=== PATIENT | female | born 1965 | race Caucasian/White ===

== ENCOUNTER 2022-08-16 02:14 | Outpatient (CLI) | payer OTHER, SELFPAY ==
[2022-08-16 08:37] LABS: ALT 44 U/L (14-59); AST 24 U/L (15-37); Alkaline Phosphatase 75 U/L (46-116); Bilirubin, Direct 0.1 mg/dL (0.0-0.2); Bilirubin, Total 0.3 mg/dL (0.2-1.0); Total Protein 7.8 g/dL (6.4-8.2)
[2022-08-16 08:41] LABS: ALT 42 U/L (14-59); AST 24 U/L (15-37); Albumin 3.9 g/dL (3.4-5.0); Alkaline Phosphatase 77 U/L (46-116); BUN 27 mg/dL (7-18); Bilirubin, Total 0.3 mg/dL (0.2-1.0); CREATININE 0.7 mg/dL (0.55-1.02); Calcium 9.1 mg/dL (8.5-10.1); Calculated LDL 137 mg/dL (<100); Chloride 103 mmol/L (98-107); Cholesterol 225 mg/dL (<200); Estimated GFR 100.81 (mL/min/1.73m2); Glucose 108 mg/dL (74-106); HDL Cholesterol 55 mg/dL (40-60); Potassium 4.2 mmol/L (3.5-5.1); Sodium 138 mmol/L (136-145); Total Protein 7.8 g/dL (6.4-8.2); Triglyceride 167 mg/dL (<150)
[2022-08-16 09:10] LABS: Hemoglobin A1C 5.5 % (<5.7)
== END 2022-08-16 02:15 | disposition home or self-care (01) ==
PROVIDERS: PCP Nurse Practitioner Family; Visit Provider Nurse Practitioner Family
DX: Z13.220 Encounter for screening for lipoid disorders (principal); Z13.1 Encounter for screening for diabetes mellitus; Z51.81 Encounter for therapeutic drug level monitoring
CPT/HCPCS: 36415; 80053; 80061; 80076; 82248; 83036

== ENCOUNTER 2022-09-18 04:56 | Outpatient (CLI) | payer OTHER, SELFPAY ==
[2022-09-18 08:52] LABS: Vitamin B12 968 pg/mL (193-986)
== END 2022-09-18 04:57 | disposition home or self-care (01) ==
LOC: LBO 04:57
PROVIDERS: Nurse Practitioner Adult Health; PCP Nurse Practitioner Family; Referring Provider Nurse Practitioner Family; Visit Provider Nurse Practitioner Family
DX: R41.3 Other amnesia; G43.009 Migraine without aura, not intractable, without status migrainosus; F41.8 Other specified anxiety disorders; G31.84 Mild cognitive impairment of uncertain or unknown etiology
CPT/HCPCS: 36415; 82607; 84443

== ENCOUNTER 2022-10-03 09:44 | Outpatient (REF) | payer OTHER, SELFPAY ==
--- NOTE | 2022-10-03 08:45 | PAPFT_PTH ---
PATIENT: Violeta Suarez LOC: ONI U#:[id number] AGE/SX: 57/F ROOM: RE10/03/[address]: Ana Florentino APRN : 1965 BED: DIS: 10/03/2022 SPEC #: [id number] RECD: 10/03/22 17:52 STATUS: DORA REQ #: [id number] TAHIRA: 10/03/22 08:[address]: Ana Florentino DEPT: [facility] Cytology RECD BY: Roma Duke Tissues: 1 - CX/ENDOCX FOR PAP SMEARS Procedures: PAP THIN PREP/UVM Screening HPV DNA PROBE Comments: [id number]
[2022-10-03 15:53] LABS: TSH (W/Ref FT4) 3.61 uIU/mL (0.36-3.74)
== END 2022-10-03 09:45 | disposition home or self-care (01) ==
LOC: LBN 09:44
PROVIDERS: PCP Nurse Practitioner Family; Visit Provider Nurse Practitioner Family
DX: R79.89 Other specified abnormal findings of blood chemistry (principal); Z12.4 Encounter for screening for malignant neoplasm of cervix; E78.5 Hyperlipidemia, unspecified; R94.6 Abnormal results of thyroid function studies; Z11.51 Encounter for screening for human papillomavirus (HPV)
CPT/HCPCS: 88142; 84443; 87624

== ENCOUNTER 2023-01-13 04:46 | Outpatient (CLI) | payer OTHER, SELFPAY ==
[2023-01-13 13:22] LABS: Hemoglobin A1C 5.1 % (<5.7)
[2023-01-13 13:34] LABS: ALT 38 U/L (14-59); AST 22 U/L (15-37); Alkaline Phosphatase 75 U/L (46-116); Bilirubin, Total 0.4 mg/dL (0.2-1.0); Calculated LDL 129 mg/dL (<100); Cholesterol 229 mg/dL (<200); HDL Cholesterol 66 mg/dL (40-60); Total Protein 7.7 g/dL (6.4-8.2); Triglyceride 172 mg/dL (<150)
[2023-01-13 13:52] LABS: Bilirubin, Direct 0.1 mg/dL (0.0-0.2)
== END 2023-01-13 04:47 | disposition home or self-care (01) ==
PROVIDERS: PCP Nurse Practitioner Family
DX: F34.0 Cyclothymic disorder (principal); Z79.899 Other long term (current) drug therapy
CPT/HCPCS: 36415; 80061; 80076; 83036

== ENCOUNTER 2023-03-21 01:53 | Outpatient (CLI) | payer OTHER, SELFPAY ==
[2023-03-21 09:39] LABS: Abs Immature Grans 0.01 10^3/uL (0.0-0.06); Absolute Basophil Count 0.08 10^3/uL (0.0-0.2); Absolute Eosinophil Count 0.13 10^3/uL (0.0-0.7); Absolute Lymphocyte Count 1.48 10^3/uL (1.2-3.4); Absolute Monocyte Count 0.34 10^3/uL (0.1-0.8); Absolute Neutrophil Count 3.49 10^3/uL (1.2-6.7); Basophils % 1.4; Eosinophils % 2.4; HCT 38.9 % (36.0-46.0); HGB 13.5 g/dL (11.2-15.7); Immature Grans % 0.2; Lymphocytes % 26.8; MCH 32.8 pg (27.0-33.0); MCHC 34.7 % (32.0-36.0); MCV 94 fL (80-95); MPV 9.3 fL (8.0-11.0); Monocytes % 6.1; Neutrophils % 63.1; Platelet Count 288 10^3/uL (130-400); RBC 4.12 10^6/uL (3.93-5.22); RDW 11.8 % (11.7-14.6); RDW-SD 40.9 fL; WBC 5.53 10^3/uL (4.4-10.8)
[2023-03-21 10:04] LABS: BUN 14 mg/dL (7-18); CREATININE 0.8 mg/dL (0.55-1.02); Calcium 9.4 mg/dL (8.5-10.1); Chloride 104 mmol/L (98-107); Estimated GFR 85.89 (mL/min/1.73m2); Glucose 106 mg/dL (74-106); Potassium 4.3 mmol/L (3.5-5.1); Sodium 141 mmol/L (136-145)
[2023-03-21 10:15] LABS: TSH (W/Ref FT4) 3.18 uIU/mL (0.36-3.74)
[2023-03-21 10:20] LABS: Lithium 0.6 mmol/l (0.6-1.2)
[2023-03-24 09:56] LABS: Lab Add On Test DONE
[2023-03-24 10:31] LABS: FREE T4 0.86 ng/dL (0.76-1.46)
== END 2023-03-21 01:54 | disposition home or self-care (01) ==
PROVIDERS: Student in an Organized Health Care Education/Training Program; PCP Nurse Practitioner Family; Visit Provider Nurse Practitioner Family
DX: R94.6 Abnormal results of thyroid function studies (principal); E78.5 Hyperlipidemia, unspecified; R79.89 Other specified abnormal findings of blood chemistry; G31.84 Mild cognitive impairment of uncertain or unknown etiology; F32.89 Other specified depressive episodes; Z51.81 Encounter for therapeutic drug level monitoring; Z79.899 Other long term (current) drug therapy
CPT/HCPCS: 36415; 80048; 80178; 84439; 84443; 85025

== ENCOUNTER 2023-04-22 02:16 | Outpatient (CLI) | payer OTHER, SELFPAY ==
--- NOTE | 2023-04-22 06:45 | DI.MAMMO_ITS ---
Exam(s) MAMMO SCREENING EXAM: MAMMO SCREENING CLINICAL HISTORY: screening,12.39 TECHNIQUE: Bilateral full field digital CC and MLO mammographic images were obtained with 3D tomosyn thesis and utilizing computer aided detection (CAD). COMPARISON: Available for comparison. FINDINGS: Masses/Architectural Distortion: None seen. Microcalcifications: No suspicious pleomorphic-type are seen. Skin Thickening/Nipple Retraction: None. IMPRESSION: 1. No significant interval change with no specific features of malignancy noted. 2. Unless there is more urgent need, screening mammography is recommended, as per [employer] guidelines. BI-RADS Category 1 - Negative Breast Density - Category C - Heterogeneously dense Breast density category C or D implies that the patient has dense breast tissue. Dense breast tissue is very common and is not abnormal but dense breast tissue can make it harder to find cancer on a ma mmogram. Also, dense breast tissue may increase their breast cancer risk. This information about the result of the mammogram report was provided to the patient to raise their awareness. Use this report when you speak with the patient about their risks for breast cancer, which includes their family hist ory. At that time, you may recommend for more screening tests (Ultrasound or MRI) as they might be us eful based on their risk. A negative radiographic report should not delay biopsy if a dominant or clinically suspicious mass is present. Up to ten percent of cancers are not identified on mammography. A negative report may reinforce clinical impression. Adenosis and dense breasts may obscure an underlying neoplasm. False positive reports average 6 to 10%. Patient will receive a letter notifying them of these results.
== END 2023-04-22 02:36 ==
LOC: DI 02:16
PROVIDERS: PCP Nurse Practitioner Family; Visit Provider Nurse Practitioner Family
DX: Z12.31 Encounter for screening mammogram for malignant neoplasm of breast (principal)
CPT/HCPCS: 77063; 77067

== ENCOUNTER 2023-08-29 02:59 | Outpatient (CLI) | payer OTHER, SELFPAY ==
[2023-08-29 08:36] LABS: Calculated LDL 125 mg/dL (<100); Cholesterol 223 mg/dL (<200); HDL Cholesterol 78 mg/dL (40-60); Triglyceride 101 mg/dL (<150)
[2023-08-29 08:55] LABS: Hemoglobin A1C 5.3 % (<5.7)
== END 2023-08-29 03:00 | disposition home or self-care (01) ==
PROVIDERS: PCP Nurse Practitioner Family; Visit Provider Psychiatry & Neurology Psychiatry
DX: Z79.899 Other long term (current) drug therapy (principal); F31.81 Bipolar II disorder
CPT/HCPCS: 36415; 80061; 83036

== ENCOUNTER → 2023-09-11 00:19 | Outpatient (CLI) | payer OTHER, SELFPAY ==
--- NOTE | 2023-09-11 07:15 | DI.US_ITS ---
Exam(s) MG MAMMO DIAGNOSTIC UNI US BREAST LT LIMITED EXAM: MG MAMMO DIAGNOSTIC UNI CLINICAL HISTORY: New L sided breast mass,n63.20. COMPARISON: No exams were available for comparison TECHNIQUE: Craniocaudal and mediolateral oblique Full Field Digital Mammography views of the left br east with Computer Aided Diagnosis followed by Tomosynthesis and left breast ultrasound. FINDINGS: Mammography/Tomosynthesis: Masses/Architectural Distortion: None seen. Microcalcifications: No suspicious pleomorphic-type are seen. Skin Thickening/Nipple Retraction: None. Left breast US: Echotexture: Normal appearance of the glandular tissue. Shadowing: No suspicious foci. Cyst: None. Solid lesions: None seen. Ductal dilation: None. IMPRESSION: 1. No evidence of malignancy is noted. 2. Unless there is more urgent need, follow-up screening mammography is recommended, as per [place] guidelines. BI-RADS Category 1 - Negative Breast Density - Category C - Heterogeneously dense Breast density category C or D implies that the patient has dense breast tissue. Dense breast tissue is very common and is not abnormal but dense breast tissue can make it harder to find cancer on a ma mmogram. Also, dense breast tissue may increase their breast cancer risk. This information about the result of the mammogram report was provided to the patient to raise their awareness. Use this report when you speak with the patient about their risks for breast cancer, which includes their family hist ory. At that time, you may recommend for more screening tests (Ultrasound or MRI) as they might be us eful based on their risk. A negative radiographic report should not delay biopsy if a dominant or clinically suspicious mass is present. Up to ten percent of cancers are not identified on mammography. A negative report may reinforce clinical impression. Adenosis and dense breasts may obscure an underlying neoplasm. False positive reports average 6 to 10%. Patient will receive a letter notifying them of these results.
== END ==
PROVIDERS: PCP Nurse Practitioner Family; Visit Provider Family Medicine
DX: N63.21 Unspecified lump in the left breast, upper outer quadrant (principal); Z12.31 Encounter for screening mammogram for malignant neoplasm of breast
CPT/HCPCS: 76642; 77061; 77065; G0279

== ENCOUNTER 2023-10-01 02:34 | Outpatient (CLI) | payer OTHER, SELFPAY ==
[2023-10-01 07:25] LABS: Hemoglobin A1C 5.2 % (<5.7)
[2023-10-01 07:33] LABS: ALT 38 U/L (14-59); AST 19 U/L (15-37); Albumin 4.2 g/dL (3.4-5.0); Alkaline Phosphatase 66 U/L (46-116); Anion Gap 6.4 mmol/L (3-11); BUN 24 mg/dL (7-18); Bilirubin, Total 0.4 mg/dL (0.2-1.0); CO2 27.6 mmol/L (21.0-32.0); CREATININE 0.9 mg/dL (0.55-1.02); Calcium 9.1 mg/dL (8.5-10.1); Calculated LDL 168 mg/dL (<100); Chloride 103 mmol/L (98-107); Cholesterol 258 mg/dL (<200); Glucose 105 mg/dL (74-106); HDL Cholesterol 72 mg/dL (40-60); Potassium 4.2 mmol/L (3.5-5.1); Sodium 137 mmol/L (136-145); Total Protein 7.8 g/dL (6.4-8.2); Triglyceride 94 mg/dL (<150)
== END 2023-10-01 02:35 | disposition home or self-care (01) ==
LOC: LBO 02:34
PROVIDERS: PCP Nurse Practitioner Family; Referring Provider Nurse Practitioner Family; Visit Provider Nurse Practitioner Family
DX: R73.01 Impaired fasting glucose (principal); Z13.1 Encounter for screening for diabetes mellitus; Z51.81 Encounter for therapeutic drug level monitoring; E78.5 Hyperlipidemia, unspecified
CPT/HCPCS: 80053; 80061; 83036; 84443

== ENCOUNTER 2024-01-23 02:44 | Outpatient (CLI) | payer OTHER, SELFPAY ==
[2024-01-23 08:25] LABS: Hemoglobin A1C 5.5 % (<5.7)
[2024-01-23 08:48] LABS: Calculated LDL 138 mg/dL (<100); Cholesterol 241 mg/dL (<200); HDL Cholesterol 84 mg/dL (40-60); Triglyceride 95 mg/dL (<150)
== END 2024-01-23 02:45 | disposition home or self-care (01) ==
PROVIDERS: PCP Family Medicine; Visit Provider Psychiatry & Neurology Psychiatry
DX: Z79.899 Other long term (current) drug therapy (principal)
CPT/HCPCS: 36415; 80061; 83036

== ENCOUNTER 2024-09-10 01:47 | Outpatient (CLI) | payer OTHER, SELFPAY ==
--- OUTSIDE RECORDS SUMMARY | 2024-09-10 01:49 | XMS_ITS | Encounter Summary ---
Author Organization [facility] [place] [address] Care Team Providers Care Fraud Examiner Name Role Phone Jannette Wood MD Primary Care Provider Reason for Visit * Reason Onset Date Comments Medication Refill 05/09/2021 Encounter Details Date Type Department Care Team (Late st Contact Info) Description 05/09/2021 Refill Neurology at [address] [address] Sundeep Bernardo APRN [address] [place] [address] [place] [address] Social History Tobacco Use Types Packs/Day Years Used Date Smoking Tobacco: Former Cigarettes Smokeless Tobacco: Never Alcohol Use Standard Drinks/Week Comments Yes 8 (1 standard drink = 0.6 oz pur e alcohol) Sex and Gender Information Value Date Recorded Sex Assigned at Not on file Gender Identity Not on file Sexual Orientation Not on file documented as of this encounter Plan of Treatment Upcoming Encounters Date Type Department Care Team (Late st Contact Info) Description 12/08/2024 9:30 AM EDT TH Visit (TeleHealth) Sleep Center at [facility] [address] [place] [address] Mary Whitmore APRN [facility] [place] [address] documented as of this encounter Visit Diagnoses Not on filedocumented in this encounter Care Teams Fraud Examiner Relationship Specialty Start Date End Date Jannette Wood MD [address] [facility] [place] [address] PCP - General Family Medicine 01/22/21 03/21/22 documented as of this encounter
--- OUTSIDE RECORDS SUMMARY | 2024-09-10 01:49 | XMS_ITS | Encounter Summary ---
Author Organization [facility] Address [facility] [place] [address] Care Team Providers Care Hemodialysis Lab Technician Name Role Phone Unavailable Primary Care Provider Unavailabl e Reason for Visit * Diagnostic Test (Routine) - Closed Specialty Diagnoses / Procedures Referred By Contac t Referred To Contact Sleep Center Diagnoses Snoring Gasping for breath Non-restorative sleep Daytime sleepiness Overweight Anxiety and depression Memory deficits Procedures Sleep Study Diagnostic PSG / Split Night PSG Mary Whitmore APRN [facility] [place] [address] [facility] [address] [place] [address] Referral ID Status Reason Start Date Expiration Date V isits Requested Visits Authorized [id number] Closed Specialty Service Requested 05/17/2022 08/15/2022 1 1 Encounter Details Date Type Department Care Team (Latest Contact Info) Description 05/25/2022 7:30 PM EDT Procedure visit Sleep Center at [facility] [address] [place] [address] Izaiah White, DO [facility] [place] [address] DANIELLE (obstructive sleep apnea) (Primary Dx); Gasping for breath; Non-restorative sleep; Daytime sleepiness; Overweight Social History Tobacco Use Types Packs/Day Years Used Date Smoking Tobacco: Former Cigarettes Q uit: 02/17/1984 Smokeless Tobacco: Never Comments:quit years ago and never heavy Alcohol Use Standard Drinks/Week Comments Yes 7 (1 standard drink = 0.6 oz pur e alcohol) Sex and Gender Information Value Date Recorded Sex Assigned at Not on file Gender Identity Not on file Sexual Orientation Not on file documented as of this encounter Last Filed Vital Signs Vital Sign Reading Time Taken Comments Blood Pressure 114/66 05/25/2022 7:30 PM EDT Pulse - - Temperature - - Respiratory Rate - - Oxygen Saturation - - Inhaled Oxygen Concentration - - Weight 73 kg (161 lb) 05/25/2022 7:30 PM EDT Height 157.5 cm (5' 2) 05/25/2022 7:30 PM EDT Body Mass Index 29.45 05/25/2022 7:30 PM EDT documented in this encounter Progress Notes * Izaiah White, DO - 05/25/2022 7:30 PM EDT Images from the original note were not included. REPORT OF DIAGNOSTIC POLYSOMNOGRAM IDENTIFYING INFORMATION Violeta Suarez : 1965 REFERRING PHYSICIAN: Mary Whitmore APRN PRIMARY CARE PHYSICIAN: No primary care provider on file. History Of Present Illness: Violeta Suarez is a 57 y.o. female who presents for a polysomnogram for suspected sleep apnea. Polysomnography: The patient's sleep was evaluated for one night at [facility]. Sleep was monitored in accordance with recommended AASM guidelines. The recording also included oral/nasal airflow, chest and abdominal respiratory effort, nasal pressure, single channel EKG, intercostalEMG, bilateral tibialis EMG, and oxygen saturation (by pulse oximeter). Comment: - Sleep/EEG: The patient had a 11 Hz posterior dominant rhythm when awake with eyes closed. Sleep efficiency was 82.6%. NREM and REM sleep were noted. REM percentage was 24.6%. 32% of TST was spent in supine position. REM supine was observed. - Respiratory: Soft snoring was noted intermittently. Obstructive sleep apnea of a mild degree (AHIof 8.8) noted. CMS AHI of 2.8 which includes only apneas and hypopneas with 4% desaturations noted.Minimum saturation asleep of 85%. Mean saturation asleep was 94%. A total of 0.7 minutes were spentwith a saturation less then or equal to 88%. Obstructive events appeared to be more frequent in supine position (supine AHI 15.2/ Non-supine AHI 5.8). There was no prolonged hypoxemia. - EKG: Normal sinus rhythm with no significant ectopy. Heart rate ranged from 53 to 106 with a meanof 65 bpm. - EMG: PLM index of 0. - Study Conditions: Head of the bed: 0 degree elevation, 2 pillows. Supplemental oxygen: none - Subjective: The post sleep study questionnaire indicated the following: ...how did you sleep last night: much worse. ..how well rested and alert do you feel right now: much worse. Mask Demonstration: Patient expressed a preference for 3 masks were tried but no preference noted. Assessment: Ms. Violeta Suarez is a 57 y.o. female whose polysomnogram reveals mild obstructive sleep apnea with an overall AHI of 8.8. Obstructive events were mostly hypopneas. There was no prolongedhypoxemia. EKG revealed a normal sinus rhythm with no significant ectopy. No motor disorders were identified. Sleep architecture was overall unremarkable. Recommendations: Given the evidence of mild DANIELLE on this study with her current symptoms and comorbid conditions, treatment is recommended. CPAP is the recommended primary modality of treatment. Alternative options are less favored and include an oral appliance or potentially surgery. Conservative strategies may be of additional benefit and include weight loss, avoiding the supine position, and treatment of nasal congestion if present. There are no apparent contraindications to AUTOPAP. 1. Trial of AUTOPAP 5 - 15 cm. 2. Follow up with Mary Whitmore APRN about 6 weeks after starting AUTOPAP. 3. Results were communicated with patient via [facility]. 4. Results were relayed to Mary Whitmore APRN for review, orders, and follow up. Izaiah White DO [facility] Sleep Disorders [facility] REPORT of Diagnostic Polysomnography Patient Name: Violeta Suarez Study Date: 05/25/2022 Age & Sex: 57 y.o. Female Height: 5'2 Date of : 1965 Weight: 160.7 lbs BMI: 29.4 Referring Provider: Recording Technologist: RIMMA MOFFETT [facility] Scoring Technologist: GASTON RODRIGUEZ RRT, [facility] Sleep Fellow: Sleep Specialist: Scoring Technologist Comments: ECG: Sinus Rhythm Ectopy: Description of Study: Diagnostic polysomnography was performed utilizing frontal, central & occipital EEG, EOG, submentalis EMG, oronasal thermocouple, nasal pressure, ECG, thoracic and abdominalinductance plethysmography, right and left anterior tibialis EMG, snore sensor, and pulse oximetry according to AASM established guidelines. Study Details & Sleep Architecture Diagnostic Start Time (Lights Off): 23:10:30 Total Recording Time: 410.5 min Diagnostic End Time (Lights On): 06:01:00 Total Sleep Time (minutes): 339.0 Total Num. of Stage Shifts: 123 Total Sleep Time (hrs:min): 5:39.0 Total Num. of Awakenings: 19 Sleep Onset Latency: 19.0 min Total Num. of Trans. to N1: 38 Sleep Efficiency: 82.6% Total Num. of REM Periods: 3 Stage Results: Time (minutes) %TST Latency (minutes) WASO: 52.5 - - N1: 33.5 9.9 0.0 N2: 190.5 56.2 38.5 N3: 31.5 9.3 61.5 REM: 83.5 24.6 105.0 69.5 (minus wake) Arousal Counts: NREM REM Total Spontaneous: 46 (10.8/hr) 12 (8.6/hr) 58 (10.3/hr) Sum of All Arousals: 70 (16.4/hr) 15 (10.8/hr) 85 (15.0/hr) Spontaneous arousals include only EEG arousals not associated with a respiratory event or PLM. Body Position: Supine Non-Supine Non-REM: 92.5 min 163.0 min REM: 18.0 min 65.5 min Total Sleep: 110.5 min (32.6%) 228.5 min (67.4%) Respiratory Events Apneas Obstructive Mixed Central Total Apneas Total Count: 0 0 3 3 Mean Duration (sec): 0 0 12 12 Longest Duration (sec): 0 0 16.6 17 Index (REM/NREM): 0.0 / 0.0 0.0 / 0.0 0.0 / 0.7 0.0/ 0.7 Index (Sup./Non-Sup.): 0.0 / 0.0 0.0 / 0.0 1.6 / 0.0 1.6/ 0.0 Index (Total): 0.0 0.0 0.5 0.5 Hypopneas & RERAs Hypopnea Definitions: Hypopnea* [facility] Hypopnea AAS Central Hypopneas Hypopneas All RERA Total Count: 13 47 0 47 1 Mean Duration (sec): 31.3 33.7 0.0 34 29.3 Longest Duration (sec): 53.3 71.6 0.0 72 29.3 Index (REM/NREM): 2.2/2.3 5.7/8.5 0.0 / 0.0 7.2/ 8.7 0.0 0.2 Index (Sup./Non-Sup.): 4.3 / 1.3 12.5/ 5.5 0.0 / 0.0 13.6/ 5.8 0.0 / 0.3 Index (Total): 2.3 7.8 0.0 8.3 0.2 *CMS-defined hypopneas include only hypopneas with a >=4% oxygen desaturation. Includes hypopneas with an arousal or with a 3%-4% desaturation. Periodic Breathing Total Sleep Time Time (minutes) 0.0 Time (%Sleep Time) 0.0 AHI: Includes all apneas & all hypopneas associated with an arousal or a >= 3% desaturation. Supine Non-Sup. REM NREM Total Count: 28 22 10 40 50 Index (events/hr): 15.2 5.8 7.2 9.4 AHI = 8.8 CMS AHI: Includes all apneas & only hypopneas associated with a >= 4% desaturation. Supine Non-Sup. REM NREM Total Count: 11 5 3 13 16 Index (events/hr): 6.0 1.3 2.2 3.1 CMS = 2.8 Obstructive AHI: Includes obstructive & mixed apneas as well as all hypopneas. Excludes centralapneas and RERAs. Supine Non-Sup. REM NREM Total Count: 25 22 10 37 47 Index (events/hr): 13.6 5.8 7.2 8.7 OAHI = 8.3 RDI: Includes all apneas, all hypopneas, all RERAs, and all ???Unsure??? events. Supine Non-Sup. REM NREM Total Count: 28 23 10.0 40.9 51 Index (events/hr): 15.2 6.0 7.2 9.6 RDI = 9.0 Oxygen Saturation Details SpO2 Awake NREM REM All Sleep JEREMY Report Sleep Mean: 95% 94% 95% 94% 3% JEREMY 7.3 6.2 Minimum: - 86% 85% 85% 4% JEREMY 3.9 3.0 SpO2 Awake (minutes) NREM (minutes) REM (minutes) All Sleep (minutes) <=90% 0.6 1.0 0.9 1.9 <=89% 0.5 0.6 0.6 1.1 <=88% 0.4 0.3 0.4 0.7 90-99% 66.9 253.8 82.3 336.1 80-89.9% 0.5 0.6 0.6 1.1 79-79.9% 0.0 0.0 0.0 0.0 60-69.9% 0.0 0.0 0.0 0.0 50-59.9% 0.0 0.0 0.0 0.0 <=50% 0.0 0.0 0.0 0.0 Cardiac Details Heart Rate (bpm) Total Study NREM REM All Sleep Minimum - 53 53 53 Maximum 116 106 88 106 Mean - 64 68 65 Limb Movement Details Periodic Limb Movements Total PLMs (and Index) PLMs w/ Arousals (and Index) Wake (after ???Lights Off???): 0 (0.0/hr) 0 (0.0/hr) NREM: 0 (0.0/hr) 0 (0.0/hr) REM: 0 (0.0/hr) 0 (0.0/hr) Total Sleep: 0 (0.0/hr) 0 (0.0/hr) Graphs PLMs Body Position Supplemental Oxygen documented in this encounter Plan of Treatment Upcoming Encounters Date Type Department Care Team (Late st Contact Info) Description 12/08/2024 9:30 AM EDT TH Visit (TeleHealth) Sleep Center at [address] [place] [address] Mary Whitmore APRN [facility] [place] [address] documented as of this encounter Visit Diagnoses Diagnosis DANIELLE (obstructive sleep apnea)- Primary Obstructive sleep apnea (adult) (pediatric) Gasping for breath Non-restorative sleep Other sleep disturbances Daytime sleepiness Overweight documented in this encounter
--- OUTSIDE RECORDS SUMMARY | 2024-09-10 01:49 | XMS_ITS | Encounter Summary ---
Author Organization [facility] [place] [address] Care Team Providers Care Personal Lines Insurance Agent Name Role Phone Unavailable Primary Care Provider Unavailabl e Encounter Details Date Type Department Care Team (Late st Contact Info) Description 08/26/2022 Telephone Sleep Center at [facility] [address] [place] [address] Mariela Ledbetter Social History Tobacco Use Types Packs/Day Years [...] on file documented as of this encounter Miscellaneous Notes * Telephone Encounter - Mariela Ledbetter - 08/26/2022 3:27 PM EST Received SD card on 08/26/2022 mailed back to patient documented in this encounter Plan of Treatment Upcoming Encounters Date Type Department Care Team (Late st Contact Info) Description 12/08/2024 9:30 AM EDT TH Visit (TeleHealth) Sleep Center at [facility] [address] [place] [address] Mary Whitmore APRN [facility] [place] [address] documented as of this encounter Visit Diagnoses Not on filedocumented in this encounter
--- OUTSIDE RECORDS SUMMARY | 2024-09-10 01:49 | XMS_ITS | Encounter Summary ---
Author Organization [facility] Address [address] [place] [address] Care Team Providers Care Director Data Name Role Phone Jannette Wood MD Primary Care Provider [phone] Reason for Visit * Auth/Cert Specialty Diagnoses / Procedures Referred By Alonso vela Referred To Contact Diagnoses Change in bowel habit Diarrhea, unspecified 787.99 (ICD-9-CM) - R19.4 (ICD-10-CM) - Change in bowel habits 787.91 (ICD-9-CM) - R19.7 (ICD-10-CM) - Diarrhea, unspecified type Procedures PRO COLONOSCOPY, DIAGNOSTIC PRO COLONOSCOPY, REMV LESN, SNARE PRO COLONOSCOPY, BIOPSY PRO ANESTH, LWR INTESTINE, NOS COLONOSCOPY, DIAGNOSTIC Referral ID Status Reason Start Date Expiration Date Visits Re quested Visits Authorized [id number] 1 1 Encounter Details Date Type Department Care Team (Late Contact Info) Description 09/28/2021 10:01 AM EST - 09/28/2021 12:29 PM EST Hospital Encounter Gastroenterology at [address] [place] [address] Gurdeep Queen MD [address] [facility] [place] [address] Discharge Disposition: Home Social History Tobacco Use Types Packs/Day Years Used Date Smoking Tobacco: Former Cigarettes Smokeless Tobacco: Never Comments:quit- 1983 Alcohol Use Standard Drinks/Week Comments Yes 8 (1 standard drink = 0.6 oz pur e alcohol) Sex and Gender Information Value Date Recorded Sex Assigned at Not on file Gender Identity Not on file Sexual Orientation Not on file documented as of this encounter Last Filed Vital Signs Vital Sign Reading Time Taken Comments Blood Pressure 118/69 09/28/2021 11:10 AM EST Pulse 68 09/28/2021 10:10 AM EST Temperature 36.3 ??C (97.3 ??F) 09/28/2021 10:[address] Respiratory Rate 16 09/28/2021 11:10 AM EST Oxygen Saturation 98% 09/28/2021 11:10 AM EST Inhaled Oxygen Concentration - - Weight 72.1 kg (159 lb) 09/28/2021 10:10 AM EST Height 157.5 cm (5' 2) 09/28/2021 10:10 AM EST Body Mass Index 29.08 09/28/2021 10:10 AM EST documented in this encounter Discharge Instructions * Patient Instructions* Gurdeep Queen MD - 09/28/2021 10:53 AM EST ENDOSCOPY DISCHARGE INSTRUCTIONS A copy of this endoscopy report and any biopsy will be forwarded to your PCP. This usually takes about 7 days. Preliminary results of this endoscopy are shown below as you may not remember the verbalresults given to you. Findings: Normal colon- biopsies done Diverticulosis, minimal Hemorrhoids, internal, small Plan/Treatment: [X] We will notify you of your pathology results, (if applicable) in 10-14 days. Restriction on Activity ??? REST TODAY ??? DO NOT drive a car or operate machinery until the day after the procedure. ??? NO alcohol/sedatives for 24 hours. ??? NO major decisions/signing of important documents. ??? Following day: May return to full activity including work. ??? DIET: Eat and drink normally unless instructed otherwise. Treatment for Common After-Effects ??? Red or swollen IV site: warm packs for 20 min. four times a day. Call if no relief in 24 hours. ??? Mild abdominal pain: rest, eat lightly. o Colonoscopy: Bloating or excessive gas: be active to work the gas out, heating pad on low, rest if needed. Ambulating or lying on your stomach or either side can be helpful. Symptoms to Watch for and Report to Your Physician ??? Shoulder or Chest Pain ??? SEVERE or persistent abdominal, chest or shoulder pain. ??? Fever within 24 hours after procedure greater than 101. ??? A large amount of rectal bleeding. (A small amount of blood from the rectum is not serious) ??? Nausea/Vomiting IF A POLYP HAS BEEN REMOVED OR IF A BIOPSY WAS TAKEN: You can take an aspirin once daily if necessary for your heart condition, history of vascular disease or for a history of stroke. For the next two weeks: [x] DO NOT take ibuprofen or other anti-inflammatory medication. Tylenol/acetaminophen may be taken. For the Next 3 Days DIET: no restriction ACTIVITY: as tolerated If a specimen is sent for biopsy, expect a letter of explanation within two weeks. If you do not receive a letter, please call the doctor???s office. IF YOU HAVE ANY QUESTIONS OR CONCERNS, PLEASE CALL YOUR PHYSICIAN???S OFFICE AT [phone]. Advance Directives: After Your Visit Your Care Instructions An advance directive is a statement that lets people know your wishes for end-of-life care. It is used when you cannot speak or express yourself, such as if you are in a coma. An advance directive can be a spoken statement or a written document. One type of advance directive is a living will. It expresses your wishes about medical treatment incase you cannot speak. It explains if and when you want life support and other treatment. Another type of advance directive appoints a person (called a durable power of insurance defense attorney or a health care agent) who can make treatment decisions for you. You can change or end a living will at any time. Do not assume that your doctor and family know your desires about end-of-life care. An advance directive helps your loved ones make difficult decisions for you. If you do not have a living will and ahealth care agent, decisions about your medical care may be made by a doctor or a real time analyst who does not know you. Follow-up care is a simon part of your treatment and safety. Be sure to make and go to all appointments, and call your doctor if you are having problems. It???s also a good idea to know your test results and keep a list of the medicines you take. How can you care for yourself at home? Discuss your wishes with all of your family members and your doctor so they know what you want. Thepeople making decisions for you should not be surprised by your choices. Each state has different guidelines for advance directives. Make sure that your directive follows the rules of the state you live in. You do not need a heel wheeler to complete an advance directive. But you may want to get legal advice. Consider the following questions when preparing an advance directive: Who do you want to make decisions about your medical care if you are not able to? Many people choose a family member, close friend, or doctor. Do you know enough about life support methods that might be used? If not, talk to your doctor so you understand. What are you most afraid of that might happen? You might be afraid of having pain, losing your independence, or being kept alive by machines. Where would you prefer to ? Choices include your home, a hospital, or a mcc. Would you like to have information about hospice care to support you and your family? Do you want to donate organs when you ? Do you want certain restoration practices performed before you ? If so, put your wishes in the advance directive. Read your advance directive every year, and make changes as needed. When should you call for help? Be sure to contact your doctor if you have any questions. Visit our health information library at [email or web address]. You can also view health information on [employer], your personal patient account. Log in or sign up today. Enter R264 in the search box to learn more about Advance Directives: After Your Visit. ?? [id number] [employer]. Care instructions adapted under license by [facility]. This care instruction is for use with your licensed healthcare professional. If you have questions about a medical condition or this instruction, always ask your healthcare professional. [employer] disclaims any warranty or liability for your use of this information. Content Version: 9.1.607019; Last Revised: October 04, 2009 documented in this encounter Medications at Time of Discharge Medication Sig Dispensed Refills Start Date End Date fluticasone propionate (FLONASE) 50 mcg/actuation [place], Suspension 2 sprays. 01/21/2020 levocetirizine (Xyzal) 5 mg Tablet Take 1 tablet by mouth as needed. 12/12/2021 Butalbital-Acetaminophen- Caff (Fioricet) 50-300-40 mg Capsule Take 1 tablet by mouth. 03/15/2021 03/11/2022 prazosin (Minipress) 2 mg Capsule Take 2 mg by mouth nightly. 07/04/2021 03/11/2022 lamoTRIgine (LaMICtal) 150 mg Tablet Take 150 mg by mouth 2 times daily. 12/04/2023 documented as of this encounter H&P Notes * Gurdeep Queen MD - 09/28/2021 10:15 AM EST Patient Name: Violeta Suarez Patient Age: 56 y.o. Birthdate: 1965 Admit date: 09/28/2021 Attending Physician: Gurdeep Queen MD PRE-OP OR PROCEDURE HISTORY AND PHYSICAL Planned Procedure: [x] Colonoscopy [] EGD/Colonoscopy, Chief Complaint/Diagnosis: diarrhea hyperplastic polyp- 2015 Medical/Surgical History/Problems: Past Medical History: Diagnosis Date ??? Anxiety ??? Back pain ??? Depression ??? Headache ??? Memory disorder Past Surgical History: Procedure Laterality Date ??? SECTION ??? CREATED BY INTERFACE right submandibular abcess I&D Procedure Date: Unknown ??? CREATED BY INTERFACE right submandibular abcess I&D Procedure Date: Unknown ??? TUBAL LIGATION ??? WISDOM TOOTH EXTRACTION Social History: reports that she has quit smoking. She smoked 1.00 pack per day. She has never used smokeless tobacco. She reports current alcohol use of about 8.0 standard drinks of alcohol per week. She reports that she does not use drugs. Allergies: Pollen extracts Medications: No current facility-administered medications on file prior to encounter. Current Outpatient Medications on File Prior to Encounter Medication Sig Dispense Refill ??? Mwjssizfmz-Arzbkbpxwjzxb-Ndde (Fioricet) 50-300-40 mg Capsule Take 1 tablet by mouth. ??? prazosin (Minipress) 2 mg Capsule Take 2 mg by mouth nightly. ??? fluticasone propionate (FLONASE) 50 mcg/actuation [place], Suspension 2 sprays. ??? lamoTRIgine (LAMICTAL) 150 mg tablet Take 150 mg by mouth 2 times daily. ??? sodium chloride 0.9 % (flush) (BD PosiFlush Normal Saline 0.9) flush 5 mL ??? sodium chloride 0.9 % (flush) (BD PosiFlush Normal Saline 0.9) flush 5-20 mL ??? lidocaine (Xylocaine) 1% (10 mg/mL) injection 3 mg ??? sodium chloride 0.9% infusion ??? ondansetron (pf) (Zofran) (2 mg/mL) injection 4 mg Pertinent positive findings: [] None Patient Vitals for the past 24 hrs: Temp Pulse Resp BP SpO2 O2 Device 09/28/21 1010 36.8 ??C (98.3 ??F) 68 16 127/73 100 % RA HEENT: Anicteric Lungs: clear Heart: RRR Abdomen: soft and non-tender Extremities no cyanosis Alert and oriented Assessment: as above Plan: [x] Colonoscopy; Risk and benefits of the procedure discussed with the patient. documented in this encounter Plan of Treatment Upcoming Encounters Date Type Department Care Team (Late st Contact Info) Description 12/08/2024 9:30 AM EDT TH Visit (TeleHealth) Sleep Center at [address] [place] [address] Mary Whitmore APRN [facility] [place] [address] documented as of this encounter Procedures Procedure Name Priority Date/Time Associated Diagnosis Comments SURGICAL PATHOLOGY REPORT Routine 09/28/2021 10:41 AM EST SPECIMEN TO PATHOLOGY Routine 09/28/2021 10:41 AM EST SPECIMEN TO PATHOLOGY Routine 09/28/2021 10:41 AM EST COLONOSCOPY Routine 09/28/2021 10:26 AM EST Colonoscopy, Diagnostic (32003) 09/28/2021 10:26 AM EST diverticulosis, hemorrhoids documented in this encounter Results * Surgical Pathology Report (09/28/2021 10:41 AM EST) Final Diagnosis [id number] ? Location: [facility] The signing pathologist has (i) examined the relevant preparation(s) for the specimen(s) and (ii) rendered or confirmed the diagnosis(es). . ?Surgical Pathology DIAGNOSIS A - Right colon bx, biopsy (Multiple): - ??Colonic mucosa, negative for diagnostic abnormality. B - Left colon bx, biopsy (Multiple): - ??Colonic mucosa, negative for diagnostic abnormality. CR-PX Electronically signed by: ?Delfin Moreland MD Verified: ??10/03/2021 15:45 ??Pathologist Performed at: ??[place] [place], [place], [place] SPECIMEN(S) SUBMITTED A - Right colon bx, biopsy (Multiple) B - Left colon bx, biopsy (Multiple) CLINICAL INFORMATION Diarrhea, Hx hypoplastic polyp/ dx diverticulosis. Hemorrhoids SPECIMEN PROCESSING A - Labeled/Fixativ e: Right colon BX, formalin. Quantity/Size: Seven, ranging from 0.3-0.5 cm. Tissue Description: Soft, mirza tissues. Sections/Proces sing: Submitted en toto ??in 2 cassettes labeled A1-A2. B - Labeled/Fixativ e: Left colon BX, formalin. Quantity/Size: Four, ranging from 0.2-0.5 cm. Tissue Description: Soft, mirza tissues. Sections/Proces sing: Submitted en toto ??in 1 cassette labeled B1. ??mnd 10/03/2021 3:45 PM EST [facility] GI Biopsy 09/28/2021 10:4 1 AM EST 09/28/2021 10:41 AM EST GI Biopsy 09/28/2021 10:4 1 AM EST 09/28/2021 10:41 AM EST Gurdeep Queen MD PATHOLOGY/CYTOLOGY O JENNIE Performing Organization Address [facility] [place] [address] * Specimen to Pathology (09/28/2021 10:41 AM EST) AP Specimen 09/28/2021 10:4 1 AM EST 09/28/2021 10:41 AM EST Narrative [facility] - 09/28/2021 10:41 AM EST Specimen requisition ordered. ??Separate Pathology report to follow Gurdeep Queen MD PATHOLOGY/CYTOLOGY O JENNIE Performing Organization Address [facility] [place] [address] * Specimen to Pathology (09/28/2021 10:41 AM EST) AP Specimen 09/28/2021 10:4 1 AM EST 09/28/2021 10:41 AM EST Narrative [facility] - 09/28/2021 10:41 AM EST Specimen requisition ordered. ??Separate Pathology report to follow Gurdeep Queen MD PATHOLOGY/CYTOLOGY O JENNIE Performing Organization Address [facility] [place] [address] * COLONOSCOPY (09/28/2021 10:26 AM EST) COLONOSCOPY [facility] Endoscopy ___ Patient Name: Violeta Suarez ??Procedure Date: 09/28/2021 10:26 AM ?Date of : 1965 Age: 56 ?Order #: [id number] ___ Procedure: ? Colonoscopy Indications: ? Chronic diarrhea for past year ? (abrupt change); no alarm symptoms Providers: ? Gurdeep Queen MD Referring : ? Medicines: ? Propofol per Anesthesia Complications: ? No immediate complications. ___ Procedure: ? The procedure, indications, benefits, ? risks and alternatives were explained ? to the patient. Specifically ? discussed were potential ? complications including, but not ? limited to, bleeding, perforation, ? infection, missing a cancer, and ? adverse medication reactions. The ? patient was placed in the left ? lateral decubitus position, and a ? digital rectal exam was performed. ? The SCOPE# [id number] was inserted in ? the anus and under direct ? visualization, advanced to the ? terminal ileum, with identification ? of the appendiceal orifice and IC ? valve. Careful inspection was made as ? the colonoscope was withdrawn. The ? colonoscopy was performed without ? difficulty. The patient tolerated the ? procedure well. The quality of the ? bowel preparation was excellent. ? Findings: ? The terminal ileum appeared normal. ? A few small-mouthed diverticula were found in the ? sigmoid colon. ? Normal mucosa was found in the entire colon. Biopsies ? for histology were taken with a cold forceps from the ? right colon and left colon for evaluation of ? microscopic colitis. ? Internal hemorrhoids were found during retroflexion. ? The hemorrhoids were Grade I (internal hemorrhoids ? that do not prolapse). ? Impression: ?- The examined portion of the ileum ? was normal. ? - Diverticulosis in the sigmoid colon. ? - Normal mucosa in the entire ? examined colon. Biopsied. ? - Internal hemorrhoids. Recommendation: ?- Await pathology results to exclude ? microscopic colitis. Low fodmap diet. ? If persistent symptoms, consider ? celiac testing, stool studies. ? Procedure Code(s): ?? --- Professional --- ? 62219, Colonoscopy, flexible; with ? biopsy, single or multiple ? --- Technical --- ? 40944, Colonoscopy, flexible; with ? biopsy, single or multiple Diagnosis Code(s): ?? --- Professional --- ? K64.0, First degree hemorrhoids ? K52.9, Noninfective gastroenteritis ? and colitis, unspecified ? K57.30, Diverticulosis of large ? intestine without perforation or ? abscess without bleeding ? --- Technical --- ? K64.0, First degree hemorrhoids ? K52.9, Noninfective gastroenteritis ? and colitis, unspecified ? K57.30, Diverticulosis of large ? intestine without perforation or ? abscess without bleeding CPT copyright 2019 [employer]. All rights reserved. The codes documented in this report are preliminary and upon rag production worker review may be revised to meet current compliance requirements. Gurdeep Queen MD Gurdeep Queen MD 09/28/2021 10:53:18 AM This report has been signed electronically.Gurdeep Queen MD Number of Addenda: 0 Note Initiated On: 09/28/2021 10:26 AM Scope Withdrawal Time: 0 hours 7 minutes 41 seconds PROVATION 09/28/2021 10:2 6 AM EST Gurdeep Queen MD GENERAL SURGICAL ORD ERABLES PROVATION documented in this encounter Visit Diagnoses Not on filedocumented in this encounter Administered Medications Inactive Administered Medications - up to 3 most recent administrations Medication Order MAR Action Action Date Dose Rate Site lidocaine (Xylocaine) 1% (10 mg/mL) injection 3 mg 3 mg (0.3 mL), Subcutaneous, ONCE PRN, 1 dose, Starting on Fri09/28/21 at 1008, Until Fri09/28/21 at 1429, for discomfort with PIV insertion, Endoscopy (Day of Procedure), Routine ondansetron (pf) (Zofran) (2 mg/mL) injection 4 mg 4 mg, Intravenous, EVERY 6 HOURS PRN, Starting on Fri09/28/21 at 1008, Until Fri09/28/21 at 1429, Nausea, Endoscopy (Day of Procedure), Routine ondansetron (pf) (Zofran) (2 mg/mL) injection 4 mg 4 mg, Intravenous, EVERY 6 HOURS PRN, Starting on Fri09/28/21 at 1114, Until Fri09/28/21 at 1429, Nausea, Endoscopy (Recovery-Hospital Unit), Routine sodium chloride 0.9 % (flush) (BD PosiFlush Normal Saline 0.9) flush 5 mL 5 mL, Intravenous, 2 TIMES DAILY, First dose on Fri09/28/21 at 1030, Until Discontinued, Endoscopy (Day of Procedure), Routine sodium chloride 0.9 % (flush) (BD PosiFlush Normal Saline 0.9) flush 5-20 mL 5-20 mL, Intravenous, EVERY 1 MIN PRN, Starting on Fri09/28/21 at 1008, Until Fri09/28/21 at 1429, flush, Flush pertains to all indwelling lines. Flush per protocol found in the job aid using the link provided on this medication record., Endoscopy (Day of Procedure), Routine sodium chloride 0.9% infusion 100 mL/hr, Intravenous, CONTINUOUS, Starting on Fri09/28/21 at 1030, Until Fri09/28/21 at 1429, Endoscopy (Day of Procedure) New Bag 09/28/2021 10:19 AM EST 100 mL/hr 100 mL/hr documented in this encounter Active and Recently Administered Medications Times are shown in EST. Scheduled Medication Order 09/26/2021 09/27/2021 09/28/2021 sodium chloride 0.9 % (flush) (BD PosiFlush Normal Saline 0.9) flush 5 mL 5 mL, Intravenous, 2 TIMES DAILY, First dose on Fri09/28/21 at 1030, Until Discontinued, Endoscopy (Day of Procedure), Routine 1030 (Due) Continuous Medication Order 09/26/2021 09/27/2021 09/28/2021 sodium chloride 0.9% infusion 100 mL/hr, Intravenous, CONTINUOUS, Starting on Fri09/28/21 at 1030, Until Fri09/28/21 at 1429, Endoscopy (Day of Procedure) 1019 (New Bag - Prov ider: Paco Ballesteros RN) PRN Medication Order 09/26/2021 09/27/2021 09/28/2021 lidocaine (Xylocaine) 1% (10 mg/mL) injection 3 mg 3 mg (0.3 mL), Subcutaneous, ONCE PRN, 1 dose, Starting on Fri09/28/21 at 1008, Until Fri09/28/21 at 1429, for discomfort with PIV insertion, Endoscopy (Day of Procedure), Routine ondansetron (pf) (Zofran) (2 mg/mL) injection 4 mg 4 mg, Intravenous, EVERY 6 HOURS PRN, Starting on Fri09/28/21 at 1008, Until Fri09/28/21 at 1429, Nausea, Endoscopy (Day of Procedure), Routine ondansetron (pf) (Zofran) (2 mg/mL) injection 4 mg 4 mg, Intravenous, EVERY 6 HOURS PRN, Starting on Fri09/28/21 at 1114, Until Fri09/28/21 at 1429, Nausea, Endoscopy (Recovery-Hospital Unit), Routine sodium chloride 0.9 % (flush) (BD PosiFlush Normal Saline 0.9) flush 5-20 mL 5-20 mL, Intravenous, EVERY 1 MIN PRN, Starting on Fri09/28/21 at 1008, Until Fri09/28/21 at 1429, flush, Flush pertains to all indwelling lines. Flush per protocol found in the job aid using the link provided on this medication record., Endoscopy (Day of Procedure), Routine documented in this encounter Care Teams Director Data Relationship Specialty Start Date End Date Jannette Wood MD [address] [facility] [place] [address] PCP - General Family Medicine 01/22/21 03/21/22 documented as of this encounter
--- OUTSIDE RECORDS SUMMARY | 2024-09-10 01:49 | XMS_ITS | Clinical Summary ---
Author Organization [facility] Address [address] [facility] [place] [address] Care Team Providers Care Demolition Specialist Name Role Phone Safia Florentinoava Ng APRN Primary Care Provider [phone] Allergies Active Allergy Reactions Criticality Noted Date Comments Pollen Extracts 04/12/2021 Medications Medication Sig Dispensed Refills Start Date End Date Status fluticasone propionate (FLONASE) 50 mcg/actuation [place], Suspension 2 sprays. 01/21/2020 Active levocetirizine (XYZAL) 5 mg Tablet Take 5 mg by mouth daily. Active OLANZapine zydis (ZyPREXA) 5 mg Tablet, Rapid Dissolve Take 5 mg by mouth nightly. Active lamoTRIgine (LaMICtal) 200 mg Tablet Take 200 mg by mouth nightly. 08/06/2022 Active ARIPiprazole (Abilify) 5 mg tablet Take 5 mg by mouth daily. Active Active Problems Problem Noted Date Diagnosed Date DANIELLE (obstructive sleep apnea) 06/05/2022 Chronic frontal sinusitis 07/05/2021 Chest pain, atypical 07/04/2021 Gastroesophageal reflux disease 07/04/2021 Memory impairment 07/04/2021 Migraine headache 07/04/2021 Chronic migraine without aur a without status migrainosus, not intractable 03/21/2021 Influenza-like illness 10/06/2020 Overview (01/29/2021): Last Assessment & Plan: Patient looks well here today however discussed likely etiologies and evaluation and treatment. A Covid 19 rapid antigen test was performed in the clinic today which was negative. The patient elected to check a PCR test for Covid 19. These results are pending; we will contact them as soon as they are available. Until then the patient was instructed to isolate and recommend quarantine for any close contacts. CDC guidelines were provided. Symptomatic treatment also encouraged. If symptoms worsen and COVID PCR test is positive, can discuss with primary care outpatient Covid therapies with medications like Bamlanivimab ([email or web address]). If any symptoms worsen to include chest pain or trouble breathing patient should go to the emergency room. See discharge instructions. Chronic headaches 05/11/2013 Depression Overview (11/20/2010): hospitalized in past Seasonal allergies Immunizations Name Administration Dates Next Due Covid-19 Monovalent (Pfizer Comirnaty purple cap) 12yrs+ ([id number]) 01/20/2021,12/27/2020 Influenza Quadrivalent, Preservative Free 2020 Influenza Trivalent w/Preservative 07/07/2013 Influenza Unspecified Formulation 06/29/2020 Influenza Vaccine, Whole 07/17/2010 Td Adult (not absorbed) 11/24/2003 Tdap (Adacel, Boostrix) 03/06/2016,04/08/2013 Family History Medical History Relation Comments Hyperlipidemia Father Prostate Cancer Father Cancer Maternal Grandmother lung cancer Cancer Mother precancerous [place] Hyperlipidemia Mother Alzheimer Disease Paternal Grandmother Breast Cancer Paternal Grandmother Cancer Paternal Grandmother breast canc er Mental Illness Sister 1 Colon Polyps Neg Hx Colorectal Cancer Neg Hx Relation Status Comments Father Alive Maternal Grandfather Maternal Grandmother Mother Alive Paternal Grandfather Paternal Grandmother Sister 1 Alive Sister 2 Alive Social History Tobacco Use Types Packs/Day Years [...] on file Sexual Orientation Not on file Last Filed Vital Signs Vital Sign Reading Time Taken Comments Blood Pressure 114/66 05/25/2022 7:30 PM EDT Pulse 80 12/12/2021 12:49 PM EDT Temperature 36.3 ??C (97.3 ??F) 09/28/2021 10:[address] Respiratory Rate 16 09/28/2021 11:10 AM EST Oxygen Saturation 98% 09/28/2021 11:10 AM EST Inhaled Oxygen Concentration - - Weight 73.5 kg (162 lb) 12/04/2023 4:13 PM EDT Height 154.9 cm (5' 1) 12/04/2023 4:13 PM EDT Body Mass Index 30.61 12/04/2023 4:13 PM EDT Plan of Treatment Upcoming Encounters Date Type Department Care Team (Late st Contact Info) Description 12/08/2024 9:30 AM EDT TH Visit (TeleHealth) [facility] [address] [place] [address] Mary Whitmore APRN [facility] [place] [address] Health Maintenance Due Date Last Done Comments CT Colonography 1965 FIT DNA 1965 FIT 1965 Sigmoidoscopy 1965 HIV screen 1983 Hepatitis B vaccine (0-59 yrs) (1) 1984 Pneumococcal Vaccine: At-Ris k 5-64yrs (1 of 2 - PCV) 1984 Zoster vaccine (1 of 2) 2015 Advance Directive 2020 Breast Cancer screening 05/01/2023 05/01/20 21, 11/17/2018 (Report in e[facility]), 04/23/2017 (Report in e[facility]), Additional history exists HPV test 06/15/2023 06/15/2018 (Repo rt in e[facility]), 07/17/2010 PAP Smear 06/15/2023 06/15/2018 (Repo rt in e[facility]), 07/17/2010 Covid-19 Vaccine (3 - 2023-2 5 season) 2024 01/20/2021, 12/27/2020 Influenza (Flu) vaccine (1 o f 1 - Influenza standard series) 05/16/2024 07/05/2021, 06/29/2020, 07/07/2013, Additional history exists Diabetes Screening (HgbA1C o r Glucose) 10/16/2024 10/16/2021, 07/17/2021, 01/30/2021, Additional history exists Tetanus/Diphtheria/Pertussis Vaccines (3 - Td or Tdap) 03/06/2026 03/06/2016, 04/08/2013, 11/24/2003 Colonoscopy 09/28/2026 09/28/2021, 09/15, 04/22/2016 (Report in e[facility]) Colorectal Cancer Screening 09/28/2026 Lipid Screening 10/16/2026 10/16/2021, 10/2020, 04/08/2013, Additional history exists Sigmoidoscopy (10 year) with FIT yearly 09/28/2031 09/28/2021, 09/28/2021 Hepatitis C Screening Completed 07/12/2013 Procedures Procedure Name Priority Date/Time Associated Diagnosis Comments LIPID PANEL (REFLEX DIRECT LDL) Routine 10/16/2021 8:00 AM EST Dyslipidemia CMP W/FASTING GLUCOSE Routine 10/16/2021 8:00 AM EST Dyslipidemia COLONOSCOPY Routine 09/28/2021 10:26 AM EST MAMMO SCREENING CAD AND PEPE BILATERAL Routine 05/01/2021 3:21 PM EDT PE (physical exam), annual HEPATITIS C ANTIBODY Routine 07/12/2013 8:48 AM EDT Healthcare maintenance INFORMATION SERVICES TECH MOLECULAR GENETICS REPORT Routine 07/17/2010 9:34 AM EDT INFORMATION SERVICES TECH CYTOLOGY FINAL REPORT Routine 07/17/2010 9:34 AM EDT from Last 3 Months or Most Recently Relevant to Health Maintenance Results * CMP w/fasting Glucose (10/16/2021 8:00 AM EST) Glucose Fasting 97 65 - 99 mg/dL [facility] Comment: ?Fasting* Glucose Interpretive Criteria Normal ?65-99 mg/dL Impaired Fasting glucose ?100-125 mg/dL Consistent with Diabetes Mellitus ? >or= 126 mg/dL *Fasting is defined as no caloric intake for at least 8 hours In the absence of unequivocal hyperglycemia a plasma glucose value of >or= 126 mg/dL should be repeated on a subsequent day. Diagnosis and Classification of Diabetes Mellitus, Position Statement from the [place] [employer]. ??Diabetes Care, Volume 33, Supplement 1, Sep 2009 Blood Urea Nitrogen 16 8 - 18 mg/dL [facility] Creatinine 0.78 0.70 - 1.20 mg/dL [facility] Sodium 139 135 - 145 mmol/L [facility] Potassium 4.5 3.5 - 5.0 mmol/L [facility] Comment: Please note: ??Patients with WBC >100,000 may have falsely elevated Potassium levels. ??For accurate Potassium quantification in these patients send serum separator tube (gold top) for subsequent determinations. ??Contact the Clinical Chemistry Laboratory if there are any questions. Chloride 104 98 - 107 mmol/L [facility] Carbon Dioxide 23 22 - 31 mmol/L [facility] Anion Gap 12 5 - 15 mmol/L [facility] Calcium 9.4 8.5 - 10.5 mg/dL [facility] Protein, Total 7.1 6.1 - 8.0 g/dL [facility] Albumin 4.7 3.2 - 5.2 g/dL [facility] Aspartate Aminotransferase 22 0 - 30 unit/L [facility] Alanine Aminotransferase 26 0 - 30 unit/L [facility] Alkaline Phosphatase 65 35 - 105 unit/L [facility] Bilirubin, Total 0.3 0.2 - 1.3 mg/dL [facility] Est Glomerular Filtration Rate 85 >=60 mL/min/1. 73 m?? [facility] Comment: This patient? s estimated glomerular filtration rate (eGFR) is between 85 mL/min/1.73 m2 (patients with less muscle mass) and 98 mL/min/1.73 m2 (patients with more muscle mass) as determined by the CKD-EPI equation. Assessment of eGFR is not appropriate when creatinine concentrations are rapidly changing. For clinical decisions where creatinine clearance will affect therapy, a 24-hour urine creatinine clearance may be advised. Assignment of CKD stage 1 - 5 for patients with an eGFR near the transition point between stages may be based on clinical assessment of muscle mass and symptoms in addition to eGFR. Blood 10/16/2021 8:00 AM EST 10/16/2021 5:41 PM EST Narrative Resulting Agency Comment Spec In Lab Jannette Wood MD CHEMISTRY ORDERABLES [facility] [place] [address] * Lipid Panel (Reflex Direct LDL) (10/16/2021 8:00 AM EST) Cholesterol, Total 231 mg/dL [facility] Comment: Lower Risk: <200 mg/dL Average Risk: 200-239 mg/dL Higher Risk: >hd=039 mg/dL Triglyceride 160 mg/dL [facility] Comment: Average Risk/Lower Risk: <150 mg/dL Borderline High Risk: 150-199 mg/dL High Risk: 200-499 mg/dL Very High Risk: >wh=672 mg/dL HDL Cholesterol 58 mg/dL [facility] Comment: Males: ?? Higher Risk: <40 mg/dL Females: ?? Higher Risk: <50 mg/dL LDL Cholesterol 141 mg/dL [facility] Comment: Lowest Risk: <100 mg/dL Lower Risk: 100-129 mg/dL Borderline High Risk: 130-159 mg/dL High Risk: 160-189 mg/dL Very High Risk: >fu=507 mg/dL Cholesterol/HDL Ratio 4.0 ratio [facility] Lipid Interpretation See Note [facility] Comment: Lipid management should be guided by a patient? s ASCVD risk, goals and preferences. ACC/AHA Guidelines recommend high intensity statin if clinical ASCVD or LDL greater than or equal to 190 mg/dL. [email or web address]-CXA-[email or web address] Adults aged 40-75 with LDL 70-189 mg/dL should have their 10 year ASCVD risk estimated with the ACC/AHA ASCVD risk auto body estimator http://tools.acc.org/ORNDS-Cnvc-Oocdcvrqo/ Statin should be discussed if risk greater than or equal to 7.5% in non-diabetics. With diabetes, moderate intensity statin is recommended if risk less than 7.5%, high intensity if risk greater than or equal to 7.5%. Annual lipid monitoring on statins is not necessary. Evaluate secondary causes of Triglycerides greater than 500 mg/dL or LDL greater than 190 mg/dL: See table 6 of ACC/AHA Guideline. Lifestyle modification is a critical component of ASCVD risk reduction. Blood 10/16/2021 8:00 AM EST 10/16/2021 5:41 PM EST Narrative Resulting Agency Comment Spec In Lab Jannette Wood MD CHEMISTRY ORDERABLES [facility] [place] [address] * COLONOSCOPY (09/28/2021 10:26 AM EST) [facility] Signature COLONOSCOPY [facility] ___ Patient Name: Violeta Bains ??Procedure Date: 09/28/2021 10:26 AM ?Date of : 1965 Age: 56 ?Order #: [id number] ___ Procedure: ? Colonoscopy Indications: ? Chronic diarrhea for past year ? (abrupt change); no alarm symptoms Providers: ? Gurdeep Queen MD Referring MD: ? Medicines: ? Propofol per Anesthesia Complications: [...] rectal exam was performed. ? The SCOPE# [id number] was inserted in ? the anus and [...] Procedure Code(s): ?? --- Professional --- ? 66967, Colonoscopy, flexible; with ? biopsy, single or multiple ? --- Technical --- ? 55589, Colonoscopy, flexible; with ? biopsy, single or [...] ? abscess without bleeding CPT copyright 2019 [employer]. All rights reserved. The codes documented in this report are preliminary and upon medical insurance coder review may be revised to meet current compliance requirements. Gurdeep Queen MD Gurdeep Queen MD 09/28/2021 10:53:18 AM This report has been signed electronically.Gurdeep Queen MD Number of Addenda: 0 Note Initiated On: 09/28/2021 10:26 AM Scope Withdrawal Time: 0 hours 7 minutes 41 seconds [employer] 09/28/2021 10:2 6 AM EST Gurdeep Queen MD GENERAL SURGICAL ORD ERABLES [employer] * Mammo Screening Cad and Pepe Bilateral (05/01/2021 3:21 PM EDT) Anatomical Region Laterality Modality Breast Bilateral Mammography Impressions 05/01/2021 4:41 PM EDT Left Breast: No evidence of malignancy. Routine annual mammographic follow-up is recommended. Right Breast: No evidence of malignancy. Routine annual mammographic follow-up is recommended. Overall Assessment: BI-RADS Category 1: Negative. Thank you for letting us participate in the care of this patient. ??If you are a health care provider and have any questions regarding this report, please contact the number below. ??For patients who have questions please contact the health animal care worker that requested your imaging first. ? Narrative 05/01/2021 4:41 PM EDT EXAMINATION: MAMMO SCREENING CAD AND PEPE BILATERAL HISTORY: Routine screening. There are no first-degree relatives with history of breast cancer. COMPARISON: Comparison is made with prior images. COMMENTS: Patient has a average lifetime risk of developing breast cancer based on the Tyrer-Cuzick breast cancer risk assessment model. TECHNIQUE: A bilateral digital mammogram using computer aided detection (CAD) and digital tomosynthesis. FINDINGS: Breast Composition: The breasts are heterogeneously dense, which may obscure small masses. Left Breast: No significant masses, calcifications, or other abnormalities are seen. Right Breast: No significant masses, calcifications, or other abnormalities are seen. Jannette Wood MD [facility] MAMMO ORDERABLES * Hepatitis C Antibody (07/12/2013 8:48 AM EDT) Pathologist [facility] Hepatitis C Antibody Negative Negative [facility] Comment: Please note that as of 04/20/2013, the testing methodology for this assay has changed. However there is no change in the interpretation of the results. Blood specimen (specimen) 07/12/2013 8:48 AM EDT 07/12/2013 6:53 PM EDT Narrative Resulting Agency Comment Spec In Lab Any Woods MD CHEMISTRY ORDERABLES [facility] * INFORMATION SERVICES TECH MOLECULAR GENETICS REPORT (07/17/2010 9:34 AM EDT) INFORMATION SERVICES TECH Molecular Genetics Report ? [facility] ? Provider: ?? ANY WOODS ?Pt. Name: ?? VIOLETA BAINS ? Acc #: ?[id number] ?Pt. ? Col Date: ?? 07/17/2010 ? /Sex: ?1965,(45 years),Female ? Rec Date: ?? 07/18/2010 ? LOC: ?HCM ? MOLECULAR GENETIC STUDIES ? ---REPORT OF DNA ANALYSIS--- ? [employer] INVADER HPV ASR ? NEGATIVE for high-risk HPV *. ? It is recommended that patients with ASCUS cytology and a negative test for ? high-risk HPV follow up with an annual cytology screen. ??99.3% of women ? with ASCUS cytology and a negative high-risk HPV test will not have disease ? (Consensus Management Conference Guidelines, in Arnel D, Chata GONSALVES, ? Tarone R. ??Comparison of three management strategies for patients with ? atypical squamous cells of undetermined significance. ??J Natl Cancer Inst ? 2001;93:293-9). ??(* [employer] test used here will detect high- ? risk HPV types 16, 18, 31, 33, 35, 39, 45, 51, 52, 56, 58, 59,66 and 68.) ? Specimen: HPV Testing - Cytology Liquid Based Prep ? Reviewed by: ??Eliane Cruz, MT(ASCP), CLS III ? A ?TMAIKA Cerv-Endocerv LBP ? B ?HPVDO Do HPV Testing ? C ?[facility] So. Med Rec #: ??[id number] ? _ ? Verified date: ??07/30/10 ? Verified by: ?Lab Review, Molecular Genetics ? (Electronic Signature) [facility] 07/17/2010 9:34 AM EDT Any Woods MD PATHOLOGY/CYTOLOGY O RDERABLES [facility] * PATHOLOGY INFORMATION SERVICES TECH CYTOLOGY FINAL REPORT (07/17/2010 9:34 AM EDT) Switchboard Operator Assistant Cytology Final Report ? [facility] ? Provider: ?? ANY WOODS ?Pt. Name: ?? VIOLETA BAINS ? Acc #: ?[id number] ?Pt. ? Col Date: ?? 07/17/2010 ? /Sex: ?1965,(45 years),Female ? Rec Date: ?? 07/18/2010 ? LOC: ?HCM ? CYTOPATHOLOGY: ??INFORMATION SERVICES TECH ? ---Adequacy--- ? Specimen submitted is satisfactory. ? Endocervical component present. ? ---Cytopathologic Diagnosis--- ?NORMAL ? Negative for Intraepithelial Lesion or Malignancy (NILM). ? 07/20/10 ?? Screened by: ??SQA ? 07/20/10 ?? Verified by: ??Marty OCHOA(ASCP), Marc Kruger - Sustainable Landscape Architect ? ---Clinical Information--- ? Specimen Source: ?Cervical Endocervical LBP ? LMP: ?07/10/10 ? / ?: ?? No ? Hysterectomy?: ?No ? Clinical Data, Significant Therapy and Clinical Impression: ? [facility] So. Med Rec #: ? [id number] ? HPV Option: ?Perform concurrent Pap and High Risk HPV Testing regardless of Pap ? result. ? Preparation: ?Hologic Vial ? This Pap Test has been evaluated with the assistance of the ThinPrep Pap ? Test Imaging System. ? Note: ? The Pap test is a screening test for cervical cancer with an inherent ? false-negative rate dependent upon several variables. ??For further ? information please contact the [facility]. ? Reference: ??Tina MAYNARD. ??Damage Appraiser of Pap Smear Results. ??In: ? Boo BS, Krzysztof HH, ed. ??The Pap Smear. ??[place]: ??[place], 2002: ? 71-77. [facility] 07/17/2010 9:34 AM EDT Any Woods MD PATHOLOGY/CYTOLOGY O RDERADANY ANU [facility] from Last 3 Months or Most Recently Relevant to Health Maintenance Care Teams Demolition Specialist Relationship Specialty Start Date End Date Ana Florentino, TECHNOLOGY INFUSION SPECIALIST PCP - General Family Medicine 11/15/22
--- OUTSIDE RECORDS SUMMARY | 2024-09-10 01:49 | XMS_ITS | Encounter Summary ---
Author Organization [facility] [address] Care Team Providers Care Insole Tack Puller Hand Name Role Phone Jannette Wood MD Primary Care Provider [phone] Reason for Visit * Reason Comments Medication Refill Encounter Details Date Type Department Care Team (Late Contact Info) Description 08/16/2021 Refill Neurology at [facility] [address] [place] [address] Justin Atkins MD [address] [place] [address] Social History Tobacco Use Types Packs/Day Years [...] encounter Miscellaneous Notes * Telephone Encounter - Penelope Cook CMA - 08/16/2021 2:25 PM EST Last office visit:03/21/21 Next office visit:08/29/21 07/23/21 #9/0 Fill date 08/22/21 documented in this encounter Plan of Treatment Upcoming Encounters Date Type Department Care Team (Late Contact Info) Description 12/08/2024 9:30 AM EDT TH Visit (TeleHealth) [facility] [address] [place] [address] Mary Whitmore APRN [facility] [place] [address] documented as of this encounter Visit Diagnoses Not on filedocumented in this encounter Care Teams Insole Tack Puller Hand Relationship Specialty Start Date End Date Jannette Wood MD [address] [place] [address] PCP - General Family Medicine 01/22/21 03/21/22 documented as of this encounter
--- OUTSIDE RECORDS SUMMARY | 2024-09-10 01:49 | XMS_ITS | Encounter Summary ---
Author Organization [facility] [place] [address] Care Team Providers Care Kier Drier Name Role Phone Jannette Wood MD Primary Care Provider [phone] Encounter Details Date Type Department Care Team (Late st Contact Info) Description 09/25/2021 Telephone Gastroenterology at [address] [place] [address] Rizwana Azul, VERONICA Social History Tobacco Use Types Packs/Day Years [...] encounter Miscellaneous Notes * Telephone Encounter - Rizwana Azul CMA - 09/25/2021 1:57 PM EST Pt was scheduled today for an endoscopic procedure, as requested by [facility]. Indication(s) for this procedure include 787.99 (ICD-9-CM) - R19.4 (ICD-10-CM) - Change in bowel habits 787.91 (ICD-9-CM) - R19.7 (ICD-10-CM) - Diarrhea, unspecified type Date: 09/28/2021 Arrival Time: 11:00 AM Location: [facility] Procedure: COLONOSCOPY Provider: Dr. HANKINS Prep given: ONE VIA PORTAL Section A N Have you ever had positive COVID-19 Test? If yes, When and Were you hospitalized for COVID-19? -If positive to COVID-19 and not hospitalized, ok to schedule at [facility] at least 4 weeks out from theday confirmed of COVID-19 without any symptom, and if patient has diabetes or immunocompromised then schedule 6 weeks out. -If positive to COVID-19 and hospitalized at ICU, schedule at [facility] at least 12 weeks out from the day confirmed of COVID-19. - If hospitalized but not at ICU, schedule 8-10 weeks out at [facility] from date of COVID Test. N Do you have any of the following symptoms today or recently? Chest pain, tightness, pressure, radiating to jaw or arm? YES = If active symptoms get nurse on phone with patient to triage Alert PCP, wait for patient to be seen if appropriate N Have you been diagnosed or treated for any Cardiac (heart) conditions Ex. CHF (congestive heart failure), Afib, Cardiomyopathy? YES= use Nulytely prep YES= Cardiac Clearance. Name of Forestry Scientist if applicable If pt. is unstable, schedule at [facility]. IF PT HAS HAD AN EVENT WITH IN 6 MONTHS NEEDS CARDIAC CLEARANCE N Are you scheduled for any Cardiac Testing?(ex. ekg or stress test ) YES= Wait for Results to make sure normal/cleared. N Have you had a stroke or heart attack? YES= If either was within last 6 months, will need Cardiac Clearance N Do you have a cardiac stent in place? YES= If stent placed less than 1 year ago, book only for emergent reason after MD to MD conversation. N Do you have an implanted device such as Pacemaker or Defibrillator? YES= Book at [facility]. If done within 30 days needs cardiac clearance N Do you have kidney disease? If yes, what stage? Stage 1, 2, and 3 may be scheduled at [facility] If Stage 4: Schedule at [facility] YES= Use Nulytely Prep for colonoscopy N Are you on dialysis? YES= Patient needs to be booked for procedure within 48 hours of last dialysis at [facility]. N Do you or any of your family members have history of Clotting or Bleeding disorders, for example:Hemophilia or Factor V? YES= Send in-basket to ENDO NURSE POOL (patient needs to be pre-medicated prior to procedure). IF YES to the following questions PT NEEDS TO BE SCHEDULED AT [facility] Do YOU have a personal history of the following? N Do you have Cirrhosis? YES= Use Nulytely Prep N Do you have ESOPHAGEAL Varices? YES= if having EGD and Banding book at [facility] Do you have Ascites? YES= schedule patient at [facility] Do you or any of your family member have a history of issues with sedation/anesthesia (being put to sleep)? YES=book at [facility] N Do you have a history of Malignant Hyperthermia YES= book at [facility] N Do you have issues with breathing tube used in throat to put you to sleep (intubation), small mouth or neck abnormalities? YES= book at [facility] N N Do you have breathing difficulties such as chronic lung disease or asthma? YES= answer the next 2 questions 1. Do you use a rescue inhaler more than once a day? YES= book at [facility] 2. Do you use Home oxygen? YES= book at [facility] N Do you use a CPAP machine? If yes, what is the setting level? If setting level is 15 and above, schedule at [facility]. Vitals Office Visit from 09/25/2021 in Family Medicine at [place] Weight 73.9 kg (163 lb) Height 157.5 cm (5' 2) BSA (Calculated - sq m) 1.8 sq meters BMI (Calculated) 29.81 Temp 36.4 ??C (97.6 ??F) Temp src Temporal Heart Rate 86 BP 122/68 SpO2 100 % LAST COLONOSCOPY [facility] - 2015 Hgt: 5'2 Wgt: 163 Calculated BMI: 29.81 Clinical recommendations related to BMI: BMI 45 and above for EGD/COLO = book at [facility] BMI greater than 50 for EGD and greater than 55 for COLON Send referral to: [facility] P MAN-Endoscopy (Procedure to be done at [facility]). Anything below 40 such as 39.9, can still be done at . Anything between 40 and 44.9 may still be done at with [facility] approval, please send inbasket message to ENDO NURSE POOL for review. Please advise patients that additional increase in BMI over this guideline may result in rescheduling at a different location. Please also inbasket message ENDO NURSE POOL if there are other medical issues throughout questionnaire for patients with BMI less than 45. Section B N Do you have Diabetes? YES= what type of medication is the patient on? [] INSULIN or [] ORALS INSULIN= patient needs to talk with their simulation educator for medication adjustment. If PATIENT is a patient, send message to [facility] Diabetic Education ORALS= HOLD medication AM of procedure N Do you have a history of having a POOR COLON PREP? YES= use PREP 2 N Does patient have a recent history of constipation? YES= use PREP 2 N Is there a possibility that patient could be ? YES= DO NOT BOOK, have discussion with provider. Women UNDER 50 should test for N Do you have any active infections? (Shingles, MRSA, TB, C-diff)? YES= if possible, wait for patient to no longer be contagious. If that is NOT possible, book at [facility] and alert them. Shingles should be tightly covered if still oozing. Section C N Do you take Aspirin? YES= continue to take N N N TAKES PRAZOSIN BUT NOT FOR HYPERTENSION Do you take the following medications? Blood thinners such as Coumadin, Plavix, etc? YES= message to [facility] Nurse Clinic if followed by them to get permission from prescriber to stop meds 5-7 days prior to procedure. Pain medications on a regular basis? YES= take as prescribed without interruption and use PREP 2 due to constipating effects of meds. High Blood Pressure medication? YES= take ALL medications prescribed Please note DX related clinical recommendations below: Patients with a DX of Iron Deficiency Anemia may need an EGD. If no EGD ordered, send staff messageor call referring provider to potentially approve adding EGD to testing N Do you have any physical disabilities? N Do you have a guardian/caregiver? Does PATIENT sign for themselves? YES= send staff message to [facility] ENDO NURSE N Is a english language learner tutor used? N N Is this PATIENT having a CROW? If yes, ask question below. Do you have an allergy to metal i.e. (Nickel, chromium, copper, cobalt, and iron) YES= route the completed encounter to [facility] ENDO NURSE and notify the ordering provider N Does PATIENT have a notarized Advanced Directive in place? YES= ask PATIENT to bring a copy for us to scan into their EMR NO= provides the service for free whether patient wants to complete/update advance directive or sign up for a 1:1 meeting with a accounting analyst at N Is there anything else medically we should know about you? IF ANYTHING CHANGES IN YOUR MEDICAL CONDITION PRIOR TO THE DATE OF YOUR PROCEDURE PLEASE CALL US IMMEDIATELY-EXAMPLE: HEART, LUNGS, KIDNEYS, ETC. These questions were reviewed and approved by the [facility] Colorist Formulator and Anesthesia. Written copies of general colonoscopy information which includes prep instructions were given. Thispacket includes the appointment information. All questions were answered and patient is comfortablegoing ahead with the colonoscopy D-H patients scheduled at [facility] will have an eD-H Snapshot faxed [phone]. documented in this encounter Plan of Treatment Upcoming Encounters Date Type Department Care Team (Late st Contact Info) Description 12/08/2024 9:30 AM EDT TH Visit (TeleHealth) Sleep Center at [address] [address] Mary Whitmore APRN [facility] [place] [address] documented as of this encounter Visit Diagnoses Not on filedocumented in this encounter Care Teams Kier Drier Relationship Specialty Start Date End Date Jannette Wood MD [address] [facility] [place] [address] PCP - General Family Medicine 01/22/21 03/21/22 documented as of this encounter
--- OUTSIDE RECORDS SUMMARY | 2024-09-10 01:49 | XMS_ITS | Encounter Summary ---
Author Organization [facility] Address [facility] [address] Care Team Providers Care Cutting Tool Sharpener Name Role Phone Jannette Wood MD Primary Care Provider [phone] Encounter Details Date Type Department Care Team (Latest Contact Info) Description 07/17/2021 7:35 AM EDT Laboratory Appointment Lab at [address] [place] [address] PE (physical exam), annual Social History Tobacco Use Types Packs/Day Years [...] EDT TH Visit (TeleHealth) Sleep Center at [address] [address] Mary Whitmore APRN [facility] [place] [address] documented as of this encounter Procedures Procedure Name Priority Date/Time Associated Diagnosis Comments HC VENIPUNCTURE Routine 07/17/2021 7:31 AM EDT PE (physical exam), annual LIPID PANEL (REFLEX DIRECT LDL) Routine 07/17/2021 7:31 AM EDT PE (physical exam), annual documented in this encounter Results * Lipid Panel (Reflex Direct LDL) (07/17/2021 7:31 AM EDT) Cholesterol, Total 260 mg/dL Bryna BARRY [facility] Comment: Lower Risk: <200 mg/dL Average Risk: 200-239 mg/dL Higher Risk: >nf=949 mg/dL Triglyceride 361 mg/dL [facility] Comment: Average Risk/Lower Risk: <150 mg/dL Borderline High Risk: 150-199 mg/dL High Risk: 200-499 mg/dL Very High Risk: >ya=271 mg/dL HDL Cholesterol 60 mg/dL [facility] Comment: Males: ?? Higher Risk: <40 mg/dL Females: ?? Higher Risk: <50 mg/dL LDL Cholesterol 128 mg/dL [facility] Comment: Lowest Risk: <100 mg/dL Lower Risk: 100-129 mg/dL Borderline High Risk: 130-159 mg/dL High Risk: 160-189 mg/dL Very High Risk: >xp=180 mg/dL Cholesterol/HDL Ratio 4.3 ratio [facility] Lipid Interpretation See Note [facility] Comment: Lipid management should be guided by a patient? s ASCVD risk, goals and preferences. ACC/AHA Guidelines recommend high intensity statin if clinical ASCVD or LDL greater than or equal to 190 mg/dL. http://ESCAPESwithYOUurl.com/CFE-EED-Syqqvztsn Adults aged 40-75 with LDL 70-189 mg/dL should have their 10 year ASCVD risk estimated with the ACC/AHA ASCVD risk job estimator http://tools.acc.org/UMYPF-Ffms-Wgbxceqcf/ Statin should be discussed if risk greater [...] critical component of ASCVD risk reduction. Blood 07/17/2021 7:31 AM EDT 07/17/2021 4:22 PM EDT Narrative Resulting Agency Comment Spec In Lab Jannette Wood MD CHEMISTRY ORDERABLES [facility] [place] [address] * (ABNORMAL) CMP w/fasting Glucose (07/17/2021 7:31 AM EDT) Glucose Fasting 93 65 - 99 mg/dL [facility] Comment: ?Fasting* Glucose Interpretive Criteria Normal [...] of Diabetes Mellitus, Position Statement from the [place] [employer]. ??Diabetes Care, Volume 33, Supplement 1, Sep 2009 Blood Urea Nitrogen 27(H) 8 - 18 mg/dL [facility] Creatinine 0.75 0.70 - 1.20 mg/dL [facility] Sodium 138 135 - 145 mmol/L [facility] Potassium 4.6 3.5 - 5.0 mmol/L [facility] Comment: Please note: ??Patients with WBC >100,000 may have falsely elevated Potassium levels. ??For accurate Potassium quantification in these patients send serum separator tube (gold top) for subsequent determinations. ??Contact the Clinical Chemistry Laboratory if there are any questions. Chloride 103 98 - 107 mmol/L [facility] Carbon Dioxide 24 22 - 31 mmol/L [facility] Anion Gap 11 5 - 15 mmol/L [facility] Calcium 9.9 8.5 - 10.5 mg/dL [facility] Protein, Total 7.3 6.1 - 8.0 g/dL [facility] Albumin 4.8 3.2 - 5.2 g/dL [facility] Aspartate Aminotransferase 26 0 - 30 unit/L [facility] Alanine Aminotransferase 30 0 - 30 unit/L [facility] Alkaline Phosphatase 74 35 - 105 unit/L [facility] Bilirubin, Total <0.2(L) 0.2 - 1.3 mg/dL [facility] Est Glomerular Filtration Rate 89 >=60 mL/min/1. 73 m?? [facility] Comment: This patient? s estimated glomerular filtration rate (eGFR) is between 89 mL/min/1.73 m2 (patients with less muscle mass) and 103 mL/min/1.73 m2 (patients with more muscle mass) [...] and symptoms in addition to eGFR. Blood 07/17/2021 7:31 AM EDT 07/17/2021 4:22 PM EDT Narrative Resulting Agency Comment Spec In Lab Jannette Wood MD CHEMISTRY ORDERABLES [facility] [place] [address] documented in this encounter Visit Diagnoses Diagnosis PE (physical exam), annual Routine general medical examination at a health care facility documented in this encounter Care Teams Cutting Tool Sharpener Relationship Specialty Start Date End Date Jannette Wood MD [address] [facility] [place] [address] PCP - General Family Medicine 01/22/21 03/21/22 documented as of this encounter
--- OUTSIDE RECORDS SUMMARY | 2024-09-10 01:49 | XMS_ITS | Encounter Summary ---
Author Organization [facility] [place] [address] Care Team Providers Care Tire Builder Name Role Phone Jannette Wood MD Primary Care Provider [phone] Reason for Visit * Auth/Cert Specialty Diagnoses / Procedures Referred By Contac t Referred To Contact Diagnoses Change in bowel habit Diarrhea, unspecified 787.99 (ICD-9-CM) - R19.4 (ICD-10-CM) - Change in bowel habits 787.91 (ICD-9-CM) - R19.7 (ICD-10-CM) - Diarrhea, unspecified type Procedures PRO COLONOSCOPY, DIAGNOSTIC PRO COLONOSCOPY, REMV LESN, SNARE PRO COLONOSCOPY, BIOPSY PRO ANESTH, LWR INTESTINE, NOS COLONOSCOPY, DIAGNOSTIC Referral ID Status Reason Start Date Expiration Date Visits Re quested Visits Authorized [id number] 1 1 Encounter Details Date Type Department Care Team (Late st Contact Info) Description 09/28/2021 10:25 AM EST Anesthesia Event Gastroenterology at [address] [place] [address] Olga Sanchez MD Kulkarni, Geeta A, MD Anesthesia Record Procedure Summary Procedure Name Responsible Anesthesiologist Anesthesia Start Time Anesthesia Stop Time COLONOSCOPY, DIAGNOSTIC (WRVU 3.26) (Trunk) Olga Sanchez MD 09/28/21 1025 09/28/21 1042 Events Date Time Event Comment 09/28/2021 1018 1024 AN Verify 1025 Start 1025 An Start Data 1027 An Induction 1027 Anesthesia Ready 1042 an stop data 1042 Stop Meds Name Total Propofol 150 mg propofol 10 mg/mL INF 132.66 mg lidocaine 2% inj 60 mL sodium chloride 0.9% infusion 0 mL * Agents Name O2 Auxiliary Flowmeter 1 * Blood No blood administrations on file. Lines, Drains, and Airways Type Details Placement Removal (RETIRED) Peripheral IV Line - Single Lumen 09/28/21; 1018; (right hand); [id number] catheter system; 20 gauge; Elif Koch RN; distraction; no longer indicated, removed per policy/procedure, catheter/device intact; 09/28/21; 1100 09/28/21 1018 by Paco Ballesteros RN 09/28/21 1100 by Libby Schwartz RN documented in this encounter Social History Tobacco Use Types Packs/Day Years Used Date Smoking Tobacco: Former Cigarettes Smokeless Tobacco: Never Comments:quit- 1983 Alcohol Use Standard Drinks/Week Comments Yes 8 (1 standard drink = 0.6 oz pur e alcohol) Sex and Gender Information Value Date Recorded Sex Assigned at Not on file Gender Identity Not on file Sexual Orientation Not on file documented as of this encounter OR Notes * Anesthesia Postprocedure Evaluation - Olga Sanchez MD - 09/28/2021 10:52 AM EST Anesthesia Post Evaluation Vital signs in patient's normal range: Yes Respiratory function stable, airway patent: Yes Cardiovascular function and hydration status stable: Yes Mental Status recovered - patient participates in evaluation: Yes Pain Control Satisfactory: Yes Nausea and vomiting control satisfactory: Yes * Anesthesia Preprocedure Evaluation - Olga Sanchez MD - 09/28/2021 10:17 AM EST Pre-Anesthesia Evaluation for: Violeta Suarez a 56 y.o. female. Procedure(s): COLONOSCOPY, DIAGNOSTIC Patient Active Problem List Diagnosis ??? Chronic frontal sinusitis ??? Headache ??? Chest pain, atypical ??? Gastroesophageal reflux disease ??? Memory impairment ??? Migraine headache ??? Chronic migraine without aura without status migrainosus, not intractable ??? Influenza-like illness Last Assessment & Plan: Patient looks well here today however discussed likely etiologies and evaluation and treatment. A Covid 19 rapid antigen test was performed in the clinic today which was negative. The patient electedto check a PCR test for Covid 19. [...] outpatient Covid therapies with medications like Bamlanivimab ([email or web address]). If any symptoms worsen to include chest pain or trouble breathing patient should go to the emergency room. See discharge instructions. ??? Chronic headaches ??? Depression hospitalized in past ??? Seasonal allergies Past Medical History: Diagnosis Date ??? Anxiety ??? Back pain ??? Depression ??? Headache ??? Memory disorder Past Surgical History: Procedure Laterality Date ??? SECTION ??? CREATED BY INTERFACE right submandibular abcess I&D Procedure Date: Unknown ??? CREATED BY INTERFACE right submandibular abcess I&D Procedure Date: Unknown ??? TUBAL LIGATION ??? WISDOM TOOTH EXTRACTION Social History Tobacco Use ??? Smoking status: Former Smoker Packs/day: 1.00 ??? Smokeless tobacco: Never Used Substance Use Topics ??? Alcohol use: Yes Alcohol/week: 8.0 standard drinks Types: 6 Glasses of wine, 2 Cans of beer per week Social History Substance and Sexual Activity Drug Use No Allergies Allergen Reactions ??? Pollen Extracts Medications: MAR and/or home medications have been reviewed. Physical Exam: Patient Vitals for the past 24 hrs: Temp Pulse Resp BP SpO2 O2 Device 09/28/21 1010 36.8 ??C (98.3 ??F) 68 16 127/73 100 % RA Body mass index is 29.08 kg/m??. Height: 157.5 cm (5' 2) Weight: 72.1 kg (159 lb) Airway Assessment: Mallampati: I TM distance: >3 FB Neck ROM: full Cardiovascular Assessment: system normal Pulmonary Assessment: unlabored breathing Dental Assessment: - normal exam Misc Assessment: IV access: Peripheral line Anesthesia Plan: ASA: 2 general, with an intravenous induction NPO Status verified Informed Consent: Anesthetic plan and risks discussed with patient. Misc. Assessment: documented in this encounter Plan of Treatment Upcoming Encounters Date Type Department Care Team (Late st Contact Info) Description 12/08/2024 9:30 AM EDT TH Visit (TeleHealth) Sleep Center at [facility] [address] [place] [address] Mary Whitmore APRN [facility] [place] [address] documented as of this encounter Visit Diagnoses Not on filedocumented in this encounter Administered Medications Inactive Administered Medications - up to 3 most recent administrations Medication Order MAR Action Action Date Dose Rate Site lidocaine (Xylocaine) (20 mg/mL) 2% injection Intravenous, PRN, Starting on Fri09/28/21 at 1027, Until Fri09/28/21 at 1042, Anesthesia Intra-op, Routine Given 09/28/2021 10:27 AM EST 60 mLs propofoL (Diprivan) (10 mg/mL) infusion Intravenous, CONTINUOUS PRN, Starting on Fri09/28/21 at 1027, Until Fri09/28/21 at 1042, Anesthesia Intra-op, Routine Rate/Dose Change 09/28/2021 10:35 AM EST 80 mcg/kg/min 34.608 mL/hr New Bag 09/28/2021 10:27 AM EST 160 mcg/kg/min 69.216 m L/hr propofoL (Diprivan) 10 mg/mL bolus injection (Anesthesia) Intravenous, PRN, Starting on Fri09/28/21 at 1027, Until Fri09/28/21 at 1042, Anesthesia Intra-op Given 09/28/2021 10:27 AM EST 150 mg documented in this encounter Care Teams Tire Builder Relationship Specialty Start Date End Date Jannette Wood MD [address] [facility] [place] [address] PCP - General Family Medicine 01/22/21 03/21/22 documented as of this encounter
--- OUTSIDE RECORDS SUMMARY | 2024-09-10 01:49 | XMS_ITS | Encounter Summary ---
Author Organization [facility] [address] Care Team Providers Care Implementation Manager Name Role Phone Jannette Wood MD Primary Care Provider Reason for Visit * Diagnostic Test (Routine) - Closed Specialty Diagnoses / Procedures Referred By Contac t Referred To Contact Radiology Diagnoses Sciatica, unspecified laterality Cervicalgia Classical migraine with intractable migraine Back muscle spasm Procedures XR Thoracic Spine 2 View Including Swimmers View Arelis Hussein DC [address] [facility] 10 [place] [address] Zns Rad Xray [address] [facility] [place] [address] Referral ID Status Reason Start Date Expiration Date V isits Requested Visits Authorized [id number] Closed Specialty Service Requested 05/23/2021 05/23/2022 1 1 Encounter Details Date Type Department Care Team (Latest Contact Info) Description 05/23/2021 9:30 AM EDT Ancillary Procedure XRay at [place] [address] [place] [address] Arelis Hussein DC 10 [facility] 10 [place] [address] Sciatica, unspecified laterality; Cervicalgia; Classical migraine with intractable migraine; Back muscle spasm Social History Tobacco Use Types Packs/Day Years [...] [facility] [address] [place] [address] Mary Whitmore APRN [facility] [address] [place] [address] documented as of this encounter Procedures Procedure Name Priority Date/Time Associated Diagnosis Comments XR THORACIC SPINE 2 VIEW INCLUDING SWIMMERS VIEW Routine 05/23/2021 9:02 AM EDT Sciatica, unspecified laterality Cervicalgia Classical migraine with intractable migraine Back muscle spasm documented in this encounter Results * XR Lumbar Spine 2 Or 3 Views (Generic) (05/23/2021 9:03 AM EDT) Anatomical Region Laterality Modality L-spine N/A Computed Radiogr aphy Impressions 05/23/2021 9:14 AM EDT Mild degenerative changes of the spine as described above. No acute abnormality is seen. Thank you for letting us participate in the care of this patient. ??If you are a health care provider and have any questions regarding this report, please contact the number below. ??For patients who have questions please contact the health career orientation teacher that requested your imaging first. ? Electronically signed by: Marvin Guerrier MD, Rad[facility] [place] ([phone]), at 05/23/2021 9:14 AM Narrative 05/23/2021 9:14 AM EDT EXAMINATION: XR CERVICAL SPINE 2 OR 3 VIEWS, XR THORACIC SPINE 2 VIEW INCLUDING SWIMMERS VIEW, XR LUMBAR SPINE 2 OR 3 VIEWS (GENERIC) CLINICAL HISTORY: 3 views cervical (AP, Lat, APOM) TECHNIQUE: 3 views of the cervical spine, 3 views of the thoracic spine and 3 views of lumbar spine COMPARISON: None FINDINGS: There is degenerative spurring at C4-5, C5-6 and C6-7. Mild facet and uncovertebral degenerative change. Lateral pillars are well aligned. There is no discernible fracture or dislocation seen. Multilevel degenerative spurring throughout the thoracic spine without fracture or dislocation. Vertebral body heights are well-maintained. Visualized lung rogers are clear. Minimal degenerative spurring at L3-4 and L4-5. Minimal anterolisthesis of L4 on L5 as well as facet hypertrophy at L4-5 and L5-S1 Sequelae joints are unremarkable Procedure Note Marvin Guerrier MD - 05/23/2021 EXAMINATION: XR CERVICAL SPINE 2 OR 3 VIEWS, XR THORACIC SPINE 2 VIEWINCLUDING SWIMMERS VIEW, XR LUMBAR SPINE 2 OR 3 VIEWS (GENERIC) CLINICAL HISTORY: 3 views cervical (AP, Lat, APOM) TECHNIQUE: 3 views of the cervical spine, 3 views of the thoracic spine and 3 viewsof lumbar spine COMPARISON: None FINDINGS: There is degenerative spurring at C4-5, C5-6 and C6-7. Mild facet and uncovertebral degenerative change. Lateral pillars are well aligned. Thereis no discernible fracture or dislocation seen. Multilevel degenerative spurring throughout the thoracic spine withoutfracture or dislocation. Vertebral body heights are well-maintained. Visualizedlung rogers are clear. Minimal degenerative spurring at L3-4 and L4-5. Minimal anterolisthesis ofL4 on L5 as well as facet hypertrophy at L4-5 and L5-S1 Sequelae joints are unremarkable IMPRESSION Mild degenerative changes of the spine as described above. No acuteabnormality is seen. Thank you for letting us participate in the care of this patient. If youare a health care provider and have any questions regarding this report,please contact the number below. For patients who have questions please contactthe health career orientation teacher that requested your imaging first. Arelis Hussein DC IMG DX ORDERABLES * XR Cervical Spine 2 or 3 Views (05/23/2021 9:03 AM EDT) Anatomical Region Laterality Modality C-spine N/A Computed Radiogr aphy Impressions 05/23/2021 9:14 AM EDT Mild degenerative changes of the spine as described above. No acute abnormality is seen. Thank you for letting us participate in the care of this patient. ??If you are a health care provider and have any questions regarding this report, please contact the number below. ??For patients who have questions please contact the health career orientation teacher that requested your imaging first. ? Narrative 05/23/2021 9:14 AM EDT EXAMINATION: XR CERVICAL SPINE 2 OR 3 VIEWS, XR THORACIC SPINE 2 VIEW INCLUDING SWIMMERS VIEW, XR LUMBAR SPINE 2 OR 3 VIEWS (GENERIC) CLINICAL HISTORY: 3 views cervical (AP, Lat, APOM) TECHNIQUE: 3 views of the cervical spine, 3 views of the thoracic spine and 3 views of lumbar spine COMPARISON: None FINDINGS: There is degenerative spurring at C4-5, C5-6 and C6-7. Mild facet and uncovertebral degenerative change. Lateral pillars are well aligned. There is no discernible fracture or dislocation seen. Multilevel degenerative spurring throughout the thoracic spine without fracture or dislocation. Vertebral body heights are well-maintained. Visualized lung rogers are clear. Minimal degenerative spurring at L3-4 and L4-5. Minimal anterolisthesis of L4 on L5 as well as facet hypertrophy at L4-5 and L5-S1 Sequelae joints are unremarkable Procedure Note Marvin Guerrier MD - 05/23/2021 EXAMINATION: XR CERVICAL SPINE 2 OR 3 VIEWS, XR THORACIC SPINE 2 VIEWINCLUDING SWIMMERS VIEW, XR LUMBAR SPINE 2 OR 3 VIEWS (GENERIC) CLINICAL HISTORY: 3 views cervical (AP, Lat, APOM) TECHNIQUE: 3 views of the cervical spine, 3 views of the thoracic spine and 3 viewsof lumbar spine COMPARISON: None FINDINGS: There is degenerative spurring at C4-5, C5-6 and C6-7. Mild facet and uncovertebral degenerative change. Lateral pillars are well aligned. Thereis no discernible fracture or dislocation seen. Multilevel degenerative spurring throughout the thoracic spine withoutfracture or dislocation. Vertebral body heights are well-maintained. Visualizedlung rogers are clear. Minimal degenerative spurring at L3-4 and L4-5. Minimal anterolisthesis ofL4 on L5 as well as facet hypertrophy at L4-5 and L5-S1 Sequelae joints are unremarkable IMPRESSION Mild degenerative changes of the spine as described above. No acuteabnormality is seen. Thank you for letting us participate in the care of this patient. If youare a health care provider and have any questions regarding this report,please contact the number below. For patients who have questions please contactthe health career orientation teacher that requested your imaging first. Arelis Hussein DC IMG DX ORDERABLES * XR Thoracic Spine 2 View Including Swimmers View (05/23/2021 9:02 AM EDT) Anatomical Region Laterality Modality N/A Computed Radiogr aphy Impressions 05/23/2021 9:14 AM EDT Mild degenerative changes of the spine as described above. No acute abnormality is seen. Thank you for letting us participate in the care of this patient. ??If you are a health care provider and have any questions regarding this report, please contact the number below. ??For patients who have questions please contact the health career orientation teacher that requested your imaging first. ? Electronically signed by: Marvin Guerrier MD, Radiology [place] ([phone]), at 05/23/2021 9:14 AM Narrative 05/23/2021 9:14 AM EDT EXAMINATION: XR CERVICAL SPINE 2 OR 3 VIEWS, XR THORACIC SPINE 2 VIEW INCLUDING SWIMMERS VIEW, XR LUMBAR SPINE 2 OR 3 VIEWS (GENERIC) CLINICAL HISTORY: 3 views cervical (AP, Lat, APOM) TECHNIQUE: 3 views of the cervical spine, 3 views of the thoracic spine and 3 views of lumbar spine COMPARISON: None FINDINGS: There is degenerative spurring at C4-5, C5-6 and C6-7. Mild facet and uncovertebral degenerative change. Lateral pillars are well aligned. There is no discernible fracture or dislocation seen. Multilevel degenerative spurring throughout the thoracic spine without fracture or dislocation. Vertebral body heights are well-maintained. Visualized lung rogers are clear. Minimal degenerative spurring at L3-4 and L4-5. Minimal anterolisthesis of L4 on L5 as well as facet hypertrophy at L4-5 and L5-S1 Sequelae joints are unremarkable Procedure Note Marvin Guerrier MD - 05/23/2021 EXAMINATION: XR CERVICAL SPINE 2 OR 3 VIEWS, XR THORACIC SPINE 2 VIEWINCLUDING SWIMMERS VIEW, XR LUMBAR SPINE 2 OR 3 VIEWS (GENERIC) CLINICAL HISTORY: 3 views cervical (AP, Lat, APOM) TECHNIQUE: 3 views of the cervical spine, 3 views of the thoracic spine and 3 viewsof lumbar spine COMPARISON: None FINDINGS: There is degenerative spurring at C4-5, C5-6 and C6-7. Mild facet and uncovertebral degenerative change. Lateral pillars are well aligned. Thereis no discernible fracture or dislocation seen. Multilevel degenerative spurring throughout the thoracic spine withoutfracture or dislocation. Vertebral body heights are well-maintained. Visualizedlung rogers are clear. Minimal degenerative spurring at L3-4 and L4-5. Minimal anterolisthesis ofL4 on L5 as well as facet hypertrophy at L4-5 and L5-S1 Sequelae joints are unremarkable IMPRESSION Mild degenerative changes of the spine as described above. No acuteabnormality is seen. Thank you for letting us participate in the care of this patient. If youare a health care provider and have any questions regarding this report,please contact the number below. For patients who have questions please contactthe health career orientation teacher that requested your imaging first. Electronically signed by: Marvin Guerrier MD, Rad[facility] [place]([phone]), at 05/23/2021 9:14 AM Arelis Y Keenan DC IMG DX ORDERABLES documented in this encounter Visit Diagnoses Diagnosis Sciatica, unspecified laterality Cervicalgia Classical migraine with intractable migraine Migraine with aura, with intractable migraine, so stated, without mention of status migrainosus Back muscle spasm Other symptoms referable to back Sciatica, unspecified laterality Cervicalgia Classical migraine with intractable migraine Migraine with aura, with intractable migraine, so stated, without mention of status migrainosus Back muscle spasm Other symptoms referable to back Sciatica, unspecified laterality Cervicalgia Classical migraine with intractable migraine Migraine with aura, with intractable migraine, so stated, without mention of status migrainosus Back muscle spasm Other symptoms referable to back documented in this encounter Care Teams Implementation Manager Relationship Specialty Start Date End Date Jannette Wood MD [address] [facility] [place] [address] PCP - General Family Medicine 01/22/21 03/21/22 documented as of this encounter
--- OUTSIDE RECORDS SUMMARY | 2024-09-10 01:49 | XMS_ITS | Encounter Summary ---
Author Organization [facility] [place] [address] Care Team Providers Care Art Historian Name Role Phone Jannette Wood MD Primary Care Provider Reason for Visit * Reason Comments Medication Refill Encounter Details Date Type Department Care Team (Late st Contact Info) Description 06/01/2021 Refill Neurology at [address] [address] Sundeep Bernardo APRN [address] [place] [address] [place] [address] Social History Tobacco Use Types Packs/Day Years [...] EDT TH Visit (TeleHealth) Sleep Center at [facility] [address] [place] [address] Mary Whitmore APRN [facility] [place] [address] documented as of this encounter Visit Diagnoses Not on filedocumented in this encounter Care Teams Art Historian Relationship Specialty Start Date End Date Jannette Wood MD [address] [facility] [place] [place] [address] PCP - General Family Medicine 01/22/21 03/21/22 documented as of this encounter
--- OUTSIDE RECORDS SUMMARY | 2024-09-10 01:49 | XMS_ITS | Encounter Summary ---
Author Organization [facility] [place] [address] Care Team Providers Care Emergency Man Name Role Phone Jannette Wood MD Primary Care Provider Reason for Visit * Reason Comments Medication Refill Encounter Details Date Type Department Care Team ([facility] st Contact Info) Description 06/30/2021 Refill Neurology at [address] [address] Justin Atkins MD [address] [place] [address] Dyslipidemia Social History Tobacco Use Types Packs/Day Years Used Date Smoking Tobacco: Former Cigarettes Smokeless Tobacco: Never Alcohol Use Standard Drinks/Week Comments Yes 8 (1 standard drink = 0.6 oz pur e alcohol) Sex and Gender Information Value Date Recorded Sex Assigned at Not on file Gender Identity Not on file Sexual Orientation Not on file documented as of this encounter Miscellaneous Notes * Addendum Note - Penelope Cook CMA - 07/23/2021 11:24 AM ESTAddended by: PENELOPE COOK on: 07/23/2021 11:24 AM Modules accepted: Orders * Telephone Encounter - Penelope Cook CMA - 07/23/2021 11:23 AM EST pharmacy did not receive. Transmission failed. Please resend. * Telephone Encounter - Any Martinez CMA - 07/01/2021 10:20 AM EDT Refill requested sumatriptan 50mg. Last refill: 06/01/2021, disp 9, 0 refills DANIA: 03/21/2021 w/AB Next OV: 08/29/2021 w/AB documented in this encounter Plan of Treatment Upcoming Encounters Date Type Department Care Team (Late st Contact Info) Description 12/08/2024 9:30 AM EDT TH Visit (TeleHealth) Sleep Center at [facility] [address] [place] [address] Mary Whitmore APRN [facility] [place] [address] documented as of this encounter Results * CMP w/fasting Glucose (10/16/2021 8:00 [...] of Diabetes Mellitus, Position Statement from the [place] [employer]. ??Diabetes Care, Volume 33, Supplement [...] [facility] [place] [address] * Lipid Panel (Reflex Direct LDL) (10/16/2021 8:00 AM EST) Cholesterol, Total 231 mg/dL [facility] Comment: Lower Risk: <200 mg/dL Average Risk: 200-239 mg/dL Higher Risk: >rx=405 mg/dL Triglyceride 160 mg/dL [facility] Comment: Average Risk/Lower Risk: <150 mg/dL Borderline High Risk: 150-199 mg/dL High Risk: 200-499 mg/dL Very High Risk: >nf=156 mg/dL HDL Cholesterol 58 mg/dL [facility] Comment: Males: ?? Higher Risk: <40 mg/dL Females: ?? Higher Risk: <50 mg/dL LDL Cholesterol 141 mg/dL [facility] Comment: Lowest Risk: <100 mg/dL Lower Risk: 100-129 mg/dL Borderline High Risk: 130-159 mg/dL High Risk: 160-189 mg/dL Very High Risk: >ol=906 mg/dL Cholesterol/HDL Ratio 4.0 ratio [facility] Lipid Interpretation See Note [facility] Comment: Lipid management should be guided by a patient? s ASCVD risk, goals and preferences. ACC/AHA Guidelines recommend high intensity statin if clinical ASCVD or LDL greater than or equal to 190 mg/dL. http://YOUniteurl.com/SND-GJI-Xhuntbbfe Adults aged 40-75 with LDL 70-189 mg/dL should have their 10 year ASCVD risk estimated with the ACC/AHA ASCVD risk licensed practical nurse instructor http://tools.acc.org/XQQLN-Xldc-Uvqlztmun/ Statin should be discussed if risk greater [...] [facility] [place] [address] documented in this encounter Visit Diagnoses Diagnosis Dyslipidemia Other and unspecified hyperlipidemia documented in this encounter Care Teams Emergency Man Relationship Specialty Start Date End Date Jannette Wood MD [address] [facility] [place] [address] PCP - General Family Medicine 01/22/21 03/21/22 documented as of this encounter
--- OUTSIDE RECORDS SUMMARY | 2024-09-10 01:49 | XMS_ITS | Encounter Summary ---
Author Organization [facility] [place] [address] Care Team Providers Care Telecommunication Systems Designer Name Role Phone Unavailable Primary Care Provider Unavailabl e Encounter Details Date Type Department Care Team (Late st Contact Info) Description 11/12/2022 8:30 AM EST TH Visit (TeleHealth) Sleep Center at [facility] [address] [place] [address] Mary Whitmore APRN [facility] [place] [address] DANIELLE on CPAP Social History Tobacco Use Types Packs/Day Years [...] Sign Reading Time Taken Comments Blood Pressure - - Pulse - - Temperature - - Respiratory Rate - - Oxygen Saturation - - Inhaled Oxygen Concentration - - Weight 73.5 kg (162 lb) 11/11/2022 12:31 PM EST Height 157.5 cm (5' 2) 11/11/2022 12:31 PM EST Body Mass Index 29.63 11/11/2022 12:31 PM EST documented in this encounter Progress Notes * Mary Whitmore APRN - 11/12/2022 8:30 AM EST Sleep Medicine Telemedicine Follow-Up Note Patient is currently located at their home in [place] Patient provided verbal consent prior to initiation of this encounter and expressed understanding that the telemedicine visit may be billed similar to a clinic visit. A telehealth visit was necessary due to the ongoing COVID-19 public health emergency. CC: Ms. Violeta Suarez is a 57 y.o. female seen for telemedicine follow-up of mild obstructive sleepapnea. HPI: Sleep Study May 2022: Soft snoring was noted intermittently. Obstructive sleep apnea of a mild degree (AHI of 8.8) noted.[facility] AHI of 2.8 which includes only apneas and hypopneas with 4% desaturations noted. Minimum saturation asleep of 85%. Mean saturation asleep was 94%. A total of 0.7 minutes were spent with a saturation less then or equal to 88%. Obstructive events appeared to be more frequent in supine position ([facility] AHI 15.2/ Non-supine AHI 5.8). There was no prolonged hypoxemia. Weight: 160 lbs Treatment: AutoCPAP Device: RM Pressure: 5-15 cm Pressure Intolerance: no Supplemental oxygen: no Interface/Mask: Nasal mask Difficulty tolerating mask interface: it's OK Chin Strap: no HCC: [employer] Update: Usage is on the low side but she has met compliance. Low usage is due to overseas travel. Humidity: yes Dry Mouth/Throat: no Symptoms: Patient-reported last 4 scores: [facility] 03/12/2022 09/03/2022 11/12/2022 [facility] 9 (Low Risk) 1 (Low Risk) 0 (Low Risk) Insomnia Severity Index 9 (Subthreshold insomnia) - - Snoring: Not on CPAP Nocturnal sleep quality improved: yes Daytime symptoms improved (Daytime sleepiness/fatigue): yes Naps: no Involuntary Dozing: no Sleepiness or Drowsiness when driving: no Sleep Pattern: Bedtime: 9p Position: laterally Rise time: 7a Awakenings: once Card Data Download: Date Range: 08/15-11/10/22 Pressure: 5-15 cm Residual AHI: 1.4 95th% Leak: 10.7 Median Leak: 0.7 Average Usage (Days Used/Hours): 6 hrs 54 min Days of usage: 68/88 % Days used > 4 hours: 67% Previous Card Data Download: Date Range: 07/14-09/01/22 Pressure: 5-15 cm Residual AHI: 1.4 95th% Leak: 9.8 Median Leak: 1.6 Average Usage (Days Used/Hours): 5 hrs 30 min Days of usage: 28/50 % Days used > 4 hours: 34% Current Outpatient Medications Medication Instructions ??? fluticasone propionate (FLONASE) 50 mcg/actuation [place], Suspension 2 sprays ??? lamoTRIgine (LAMICTAL) 150 mg, 2 TIMES DAILY ??? lamoTRIgine (LAMICTAL) 200 mg, Oral, NIGHTLY ??? levocetirizine (XYZAL) 5 mg, Oral, DAILY ??? OLANZapine zydis (ZYPREXA) 5 mg, Oral, NIGHTLY ??? phenelzine (NARDIL) 15 mg, Oral, 2 Times Daily Active Ambulatory Problems Diagnosis Date Noted ??? Depression ??? Seasonal allergies ??? Chronic headaches 05/11/2013 ??? Influenza-like illness 10/06/2020 ??? Chronic migraine without aura without status migrainosus, not intractable 03/21/2021 ??? Chest pain, atypical 07/04/2021 ??? Chronic frontal sinusitis 07/05/2021 ??? Gastroesophageal reflux disease 07/04/2021 ??? Memory impairment 07/04/2021 ??? Migraine headache 07/04/2021 ??? DANIELLE (obstructive sleep apnea) 06/05/2022 Resolved Ambulatory Problems Diagnosis Date Noted ??? No Resolved Ambulatory Problems Past Medical History: Diagnosis Date ??? Anxiety ??? Back pain ??? Headache ??? Memory disorder Mild DANIELLE ROS: Constitutional: Weight change: patient not weighed today, based on most recent weight in [facility] weight has been- Wt Readings from Last 3 Encounters: 11/11/22 73.5 kg (162 lb) 09/03/22 72.6 kg (160 lb) 05/25/22 73 kg (161 lb) ENT: Nasal Obstruction: no : Nocturia: no Time spent: total time of visit was 20 minutes, including face to face counseling, chart review anddocumentation Assessment: Ms. Violeta Suarez is a 57 y.o. female seen for obstructive sleep apnea. The data download reveals the AHI and leak appear to be well controlled. She is seeing benefit from CPAP. Her usageis on the low side due to travel. She has met complaince. Recommendations: Keep autoCPAP 5-15 cm PAP extension Call DME company for questions on machine, supply replacements, billing, and for confirming compliance met Continue to get PAP supplies at the recommended replacement intervals Driving safety discussed, recommend patient not drive if drowsy, if drowsy while driving, pull overand nap. Follow-up: 12 months or sooner if needed The patient indicates understanding of these issues and agrees with the plan. MARY WHITMORE APRN documented in this encounter Plan of Treatment Upcoming Encounters Date Type Department Care Team (Late st Contact Info) Description 12/08/2024 9:30 AM EDT TH Visit (TeleHealth) Sleep Center at [facility] [address] [place] [address] Mary Whitmore APRN [facility] [place] [address] documented as of this encounter Visit Diagnoses Diagnosis DANIELLE on CPAP Obstructive sleep apnea (adult) (pediatric) documented in this encounter
--- OUTSIDE RECORDS SUMMARY | 2024-09-10 01:49 | XMS_ITS | Encounter Summary ---
Author Organization [facility] [place] [address] Care Team Providers Care Respiratory Physician Name Role Phone Jannette Wood MD Primary Care Provider Encounter Details Date Type Department Care Team (Late st Contact Info) Description 10/17/2021 Telephone Family Medicine at [place] [address] [place] [address] [place] [phone] [place] [address] [place] [address] [place] [address] Social History Tobacco Use Types Packs/Day Years [...] EDT TH Visit (TeleHealth) Sleep Center at [facility] [address] [place] [phone] Mary Whitmore APRN [facility] [place] [address] documented as of this encounter Visit Diagnoses Not on filedocumented in this encounter Care Teams Respiratory Physician Relationship Specialty Start Date End Date Jannette Wood MD [address] [facility] [address] PCP - General Family Medicine 01/22/21 03/21/22 documented as of this encounter
--- OUTSIDE RECORDS SUMMARY | 2024-09-10 01:49 | XMS_ITS | Encounter Summary ---
Author Organization [facility] [place] [address] Care Team Providers Care Power Line Lineman Name Role Phone Jannette Wood MD Primary Care Provider [phone] Reason for Visit * Reason Comments Flu Vaccine pt requesting for fl u vaccine Annual Exam Encounter Details Date Type Department Care Team (Late st Contact Info) Description 07/05/2021 1:45 PM EDT Office Visit Family Medicine at [address] [place] [address] Jannette Wood MD [address] [place] [address] [place] [address] PE (physical exam), annual (Primary Dx) Social History Tobacco Use Types Packs/Day Years [...] Sign Reading Time Taken Comments Blood Pressure 126/66 07/05/2021 1:56 PM EDT Pulse 83 07/05/2021 1:56 PM EDT Temperature 36.4 ??C (97.5 ??F) 07/05/2021 1:56 PM ED T Respiratory Rate - - Oxygen Saturation 97% 07/05/2021 1:56 PM EDT Inhaled Oxygen Concentration - - Weight 72.1 kg (159 lb) 07/05/2021 1:56 PM EDT Height 157.5 cm (5' 2) 07/05/2021 1:56 PM EDT Body Mass Index 29.08 07/05/2021 1:56 PM EDT documented in this encounter Progress Notes * Jannette Wood MD - 07/05/2021 1:45 PM EDT Subjective: Patient ID: Violeta Suarez is a 56 y.o. female. Chief Complaint Patient presents with ??? Flu Vaccine pt requesting for flu vaccine ??? Annual Exam Behavorial Health Responses 07/05/2021 Total PHQ-9 0 (No Depression) Total VAL-7 0 (No Anxiety) Audit Screener - Drug Screener - Violeta is here for her annual physical examination. She denies any new symptoms. She reports feelingbetter overall. Review of Systems Constitutional: Negative for activity change, chills, fatigue and unexpected weight change. HENT: Negative for congestion, ear pain, hearing loss, mouth sores, nosebleeds, postnasal drip, sinus pressure, sinus pain, sneezing, sore throat, trouble swallowing and voice change. Eyes: Negative for pain, redness and visual disturbance. Respiratory: Negative for cough, choking, chest tightness, shortness of breath, wheezing and stridor. Cardiovascular: Negative for chest pain, palpitations and leg swelling. Gastrointestinal: Negative for abdominal distention, abdominal pain, anal bleeding, blood in stool,constipation, diarrhea, nausea and vomiting. Endocrine: Negative for cold intolerance, heat intolerance, polydipsia, polyphagia and polyuria. Genitourinary: Negative for decreased urine volume, difficulty urinating, dyspareunia, dysuria, flank pain, frequency, genital sores, hematuria, menstrual problem, pelvic pain, urgency, vaginal bleeding, vaginal discharge and vaginal pain. Musculoskeletal: Negative for arthralgias, back pain, gait problem, joint swelling and neck pain. Skin: Negative for rash and wound. Allergic/Immunologic: Negative for food allergies. Neurological: Negative for dizziness, seizures, syncope, speech difficulty, weakness, light-headedness, numbness and headaches. Hematological: Does not bruise/bleed easily. Psychiatric/Behavioral: Negative for behavioral problems, dysphoric mood and sleep disturbance. Thepatient is not nervous/anxious. Objective: Visit Vitals BP 126/66 Pulse 83 Temp 36.4 ??C (97.5 ??F) (Temporal) Ht 157.5 cm (5' 2) Wt 72.1 kg (159 lb) SpO2 97% BMI 29.08 kg/m?? Physical Exam Vitals reviewed. Constitutional: Appearance: Normal appearance. HENT: Head: Normocephalic and atraumatic. Right Ear: Tympanic membrane normal. Left Ear: Tympanic membrane normal. Nose: Nose normal. Mouth/Throat: Mouth: Mucous membranes are moist. Eyes: General: Right eye: No discharge. Left eye: No discharge. Extraocular Movements: Extraocular movements intact. Pupils: Pupils are equal, round, and reactive to light. Cardiovascular: Rate and Rhythm: Normal rate and regular rhythm. Pulses: Normal pulses. Heart sounds: Normal heart sounds. Pulmonary: Effort: Pulmonary effort is normal. Breath sounds: Normal breath sounds. Abdominal: General: Bowel sounds are normal. There is no distension. Palpations: Abdomen is soft. There is no mass. Tenderness: There is no abdominal tenderness. There is no right CVA tenderness, left CVA tenderness, guarding or rebound. Hernia: No hernia is present. Musculoskeletal: General: Normal range of motion. Cervical back: Normal range of motion. Skin: General: Skin is warm. Coloration: Skin is not jaundiced or pale. Findings: No bruising, erythema, lesion or rash. Neurological: General: No focal deficit present. Mental Status: She is alert and oriented to person, place, and time. Cranial Nerves: No cranial nerve deficit. Sensory: No sensory deficit. Psychiatric: Mood and Affect: Mood normal. Behavior: Behavior normal. Assessment and Plan: Violeta was seen today for flu vaccine and annual exam. Diagnoses and all orders for this visit: PE (physical exam), annual - Lipid Panel (Reflex Direct LDL); Future; Expected date: 07/05/2021 - CMP w/fasting Glucose; Future; Expected date: 07/05/2021 -Discussed screening and preventive care Recommended fasting labs Reviewed immunizations Flu shot today Due for colonoscopy Other orders - Lvjjgjhvtf-Uklweonmnwtmp-Jbfh (Fioricet) 50-300-40 mg Capsule; Take 1 tablet by mouth. - DULoxetine DR (Cymbalta) 20 mg Capsule, Delayed Release(E.C.) - Discontinue: DULoxetine DR (Cymbalta) 30 mg Capsule, Delayed Release(E.C.) - Discontinue: prazosin (Minipress) 1 mg Capsule; TAKE 1 CAPSULE BY MOUTH NIGHTLY FOR 7 NIGHTS, THEN INCREASE TO 2 CAPSULES NIGHTLY FOR 23 NIGHTS - prazosin (Minipress) 2 mg Capsule documented in this encounter Plan of Treatment Upcoming Encounters Date Type Department Care Team (Late st Contact Info) Description 12/08/2024 9:30 AM EDT TH Visit (TeleHealth) Sleep Center at [facility] [address] [place] [address] [facility] [place] [address] documented as of this encounter Results * (ABNORMAL) CMP w/fasting Glucose (07/17/2021 7:31 AM EDT) [facility] Glucose Fasting 93 65 - 99 mg/dL [facility] Comment: ?Fasting* Glucose Interpretive Criteria [...] of Diabetes Mellitus, Position Statement from the [place] Diabetes [employer]. ??Diabetes Care, Volume 33, Supplement 1, Sep 2009 Blood Urea Nitrogen 27(H) 8 - 18 mg/dL [facility] Creatinine 0.75 0.70 - 1.20 mg/dL [facility] Sodium 138 135 - 145 mmol/L [facility] Potassium 4.6 3.5 - 5.0 mmol/L [facility] Comment: Please note: ??Patients with WBC >100,000 may have falsely elevated Potassium levels. ??For accurate Potassium quantification in these patients send serum separator tube (gold top) for subsequent determinations. ??Contact the Clinical Chemistry Laboratory if there are any questions. Chloride 103 98 - 107 mmol/L [facility] Carbon Dioxide 24 22 - 31 mmol/L [facility] Anion Gap 11 5 - 15 mmol/L [facility] Calcium 9.9 8.5 - 10.5 mg/dL [facility] Protein, Total 7.3 6.1 - 8.0 g/dL [facility] Albumin 4.8 3.2 - 5.2 g/dL [facility] Aspartate Aminotransferase 26 0 - 30 unit/L [facility] Alanine Aminotransferase 30 0 - 30 unit/L [facility] Alkaline Phosphatase 74 35 - 105 unit/L [facility] Bilirubin, Total <0.2(L) 0.2 - 1.3 mg/dL [facility] Est Glomerular Filtration Rate 89 >=60 mL/min/1. 73 m?? [facility] Comment: This patient? s estimated [...] In Lab Jannette Wood MD CHEMISTRY ORDERABLES [facility] [place] [address] * Lipid Panel (Reflex Direct LDL) (07/17/2021 7:31 AM EDT) Cholesterol, Total 260 mg/dL [facility] Comment: Lower Risk: <200 mg/dL Average Risk: 200-239 mg/dL Higher Risk: >pk=294 mg/dL Triglyceride 361 mg/dL [facility] Comment: Average Risk/Lower Risk: <150 mg/dL Borderline High Risk: 150-199 mg/dL High Risk: 200-499 mg/dL Very High Risk: >un=392 mg/dL HDL Cholesterol 60 mg/dL [facility] Comment: Males: ?? Higher Risk: <40 mg/dL Females: ?? Higher Risk: <50 mg/dL LDL Cholesterol 128 mg/dL [facility] Comment: Lowest Risk: <100 mg/dL Lower Risk: 100-129 mg/dL Borderline High Risk: 130-159 mg/dL High Risk: 160-189 mg/dL Very High Risk: >yg=989 mg/dL Cholesterol/HDL Ratio 4.3 ratio [facility] Lipid Interpretation See Note [facility] Comment: Lipid management should be guided by a patient? s ASCVD risk, goals and preferences. ACC/AHA Guidelines recommend high intensity statin if clinical ASCVD or LDL greater than or equal to 190 mg/dL. http://[email or web address]/KCX-QKM-Lonkacfol Adults aged 40-75 with LDL 70-189 mg/dL should have their 10 year ASCVD risk estimated with the ACC/AHA ASCVD risk quality assurance intern http://tools.acc.org/CEMZA-Ywvd-Xsxtjdylv/ Statin should be discussed if risk greater [...] In Lab Jannette Wood MD CHEMISTRY ORDERABLES [facility] [place] [address] documented in this encounter Visit Diagnoses Diagnosis PE (physical exam), annual- Primary Routine general medical examination at a health care facility documented in this encounter Care Teams Power Line Lineman Relationship Specialty Start Date End Date Jannette Wood MD [address] [facility] [place] [address] PCP - General Family Medicine 01/22/21 03/21/22 documented as of this encounter
--- OUTSIDE RECORDS SUMMARY | 2024-09-10 01:49 | XMS_ITS | Encounter Summary ---
Author Organization [facility] Address [facility] [place] [address] Care Team Providers Care Oim Architect Name Role Phone Jannette Wood MD Primary Care Provider Reason for Visit * Diagnostic Test (Routine) - Closed Specialty Diagnoses / Procedures Referred By Contac t Referred To Contact Radiology Diagnoses Sciatica, unspecified laterality Cervicalgia Classical migraine with intractable migraine Back muscle spasm Procedures XR Lumbar Spine 2 Or 3 Views (Generic) Arelis Hussein DC [address] [address] Zns Rad Xray [address] [place] [address] Referral ID Status Reason Start Date Expiration Date V isits Requested Visits Authorized [id number] Closed Specialty Service Requested 05/23/2021 05/23/2022 1 1 Encounter Details Date Type Department Care Team (Latest Contact Info) Description 05/23/2021 9:15 AM EDT Ancillary Procedure XRay at [place] [address] [place] [address] Arelis Hussein DC [address] [facility] [address] [place] [address] Sciatica, unspecified laterality; Cervicalgia; Classical migraine with [...] [facility] [address] [place] [address] Mary [place] APRN [facility] [place] [address] documented as of this encounter Procedures Procedure Name Priority Date/Time Associated Diagnosis Comments XR LUMBAR SPINE 2 OR 3 VIEWS Routine 05/23/2021 9:03 AM EDT Sciatica, unspecified laterality Cervicalgia Classical migraine with intractable migraine Back muscle spasm documented in this encounter Results * XR Cervical Spine 2 or 3 [...] who have questions please contact the health hospice home care coordinator that requested your imaging first. ? Narrative [...] patients who have questions please contactthe health hospice home care coordinator that requested your imaging first. Arelis Hussein DC IMG DX ORDERABLES * XR Lumbar Spine 2 Or 3 [...] who have questions please contact the health hospice home care coordinator that requested your imaging first. ? Narrative [...] patients who have questions please contactthe health hospice home care coordinator that requested your imaging first. Arelis Hussein [...] who have questions please contact the health hospice home care coordinator that requested your imaging first. ? Narrative [...] patients who have questions please contactthe health hospice home care coordinator that requested your imaging first. Arelis Y Keenan DC IMG DX ORDERABLES [...] back documented in this encounter Care Teams Oim Architect Relationship Specialty Start Date End Date Jannette Wood MD [address] [facility] [place] [address] PCP - General Family Medicine 01/22/21 03/21/22 documented as of this encounter
--- OUTSIDE RECORDS SUMMARY | 2024-09-10 01:49 | XMS_ITS | Encounter Summary ---
Author Organization [facility] One [facility] [place] [place] [address] Care Team Providers Care Shade Matcher Name Role Phone Unavailable Primary Care Provider Unavailabl e Encounter Details Date Type Department Care Team (Late st Contact Info) Description 06/05/2022 Orders Only Sleep Center at [facility] [address] [place] [address] Mary [place]more [facility] [place] [address] DANIELLE (obstructive sleep apnea) Social History Tobacco Use Types Packs/Day Years [...] EDT TH Visit (TeleHealth) Sleep Center at [facility] [address] [place] [address] Mary [place]more [facility] [place] [address] documented as of this encounter Visit Diagnoses Diagnosis DANIELLE (obstructive sleep apnea) Obstructive sleep apnea (adult) (pediatric) documented in this encounter
--- OUTSIDE RECORDS SUMMARY | 2024-09-10 01:49 | XMS_ITS | Encounter Summary ---
Author Organization [facility] Address [facility] [place] [address] Care Team Providers Care Clutch Assembler Name Role Phone Jannette Wood MD Primary Care Provider [phone] Encounter Details Date Type Department Care Team (Latest Contact Info) Description 10/16/2021 8:35 AM EST Laboratory Appointment Lab at [address] [place] [address] Change in bowel habits; Diarrhea, unspecified type; Dyslipidemia Social History Tobacco Use Types Packs/Day [...] TH Visit (TeleHealth) Sleep Center at [address] [address] Mary [place] APRN [facility] [place] [address] documented as of this encounter Procedures Procedure Name Priority Date/Time Associated Diagnosis Comments CMP W/FASTING GLUCOSE Routine 10/16/2021 8:00 AM EST Dyslipidemia HC VENIPUNCTURE Routine 10/16/2021 8:00 AM EST Change in bowel habits Diarrhea, unspecified type HC IGA, SERUM Routine 10/16/2021 8:00 AM EST Change in bowel habits Diarrhea, unspecified type HC IGG, SERUM Routine 10/16/2021 8:00 AM EST Change in bowel habits Diarrhea, unspecified type LIPID PANEL (REFLEX DIRECT LDL) Routine 10/16/2021 8:00 AM EST Dyslipidemia documented in this encounter Results * Lipid Panel (Reflex Direct LDL) (10/16/2021 8:00 AM EST) Cholesterol, Total 231 mg/dL [facility] Comment: Lower Risk: <200 mg/dL Average Risk: 200-239 mg/dL Higher Risk: >mc=199 mg/dL Triglyceride 160 mg/dL [facility] Comment: Average Risk/Lower Risk: <150 mg/dL Borderline High Risk: 150-199 mg/dL High Risk: 200-499 mg/dL Very High Risk: >fc=275 mg/dL HDL Cholesterol 58 mg/dL [facility] Comment: Males: ?? Higher Risk: <40 mg/dL Females: ?? Higher Risk: <50 mg/dL LDL Cholesterol 141 mg/dL [facility] Comment: Lowest Risk: <100 mg/dL Lower Risk: 100-129 mg/dL Borderline High Risk: 130-159 mg/dL High Risk: 160-189 mg/dL Very High Risk: >bi=900 mg/dL Cholesterol/HDL Ratio 4.0 ratio [facility] Lipid Interpretation See Note [facility] Comment: Lipid management should be guided by a patient? s ASCVD risk, goals and preferences. ACC/AHA Guidelines recommend high intensity statin if clinical ASCVD or LDL greater than or equal to 190 mg/dL. http://DEQurl.com/JYQ-XQX-Dscjynnow Adults aged 40-75 with LDL 70-189 mg/dL should have their 10 year ASCVD risk estimated with the ACC/AHA ASCVD risk armature varnisher http://tools.acc.org/JCGBX-Imuh-Lqishtfgg/ Statin should be discussed if risk greater [...] In Lab Jannette Wood MD CHEMISTRY ORDERABLES [facility] [place] [address] * CMP w/fasting Glucose (10/16/2021 8:00 AM EST) Glucose Fasting 97 65 - 99 mg/dL [facility] Comment: ?Fasting* Glucose Interpretive [...] of Diabetes Mellitus, Position Statement from the [place] [employer]. ??Diabetes Care, Volume 33, Supplement 1, Sep 2009 Blood Urea Nitrogen 16 8 - 18 mg/dL [facility] Creatinine 0.78 0.70 - 1.20 mg/dL [facility] Sodium 139 135 - 145 mmol/L [facility] Potassium 4.5 3.5 - 5.0 mmol/L [facility] Comment: Please note: ??Patients with WBC >100,000 may have falsely elevated Potassium levels. ??For accurate Potassium quantification in these patients send serum separator tube (gold top) for subsequent determinations. ??Contact the Clinical Chemistry Laboratory if there are any questions. Chloride 104 98 - 107 mmol/L [facility] Carbon Dioxide 23 22 - 31 mmol/L [facility] Anion Gap 12 5 - 15 mmol/L [facility] Calcium 9.4 8.5 - 10.5 mg/dL [facility] Protein, Total 7.1 6.1 - 8.0 g/dL [facility] Albumin 4.7 3.2 - 5.2 g/dL [facility] Aspartate Aminotransferase 22 0 - 30 unit/L [facility] Alanine Aminotransferase 26 0 - 30 unit/L [facility] Alkaline Phosphatase 65 35 - 105 unit/L [facility] Bilirubin, Total 0.3 0.2 - 1.3 mg/dL [facility] Est Glomerular Filtration Rate 85 >=60 mL/min/1. 73 m?? [facility] Comment: This patient? s [...] In Lab Jannette Wood MD CHEMISTRY ORDERABLES [facility] [place] [address] * IgA (10/16/2021 8:00 AM EST) IgA 224 70 - 400 mg/dL [facility] Blood 10/16/2021 8:00 AM EST 10/16/2021 4:17 PM EST Narrative Resulting Agency Comment Spec In Lab Jannette Wood MD CHEMISTRY ORDERABLES Performing Organization Address [facility]/ZIP Co de Phone Number [facility] [place] [address] * IgG (10/16/2021 8:00 AM EST) Immunoglobulin G 1,011 700 - 1,600 mg/dL [facility] Comment: Pediatric Reference Intervals obtained from the [employer] Reference Interval project. http://www.Rank By Search.ca/caliperproject/index.html Blood 10/16/2021 8:00 AM EST 10/16/2021 4:17 PM EST Narrative Resulting Agency Comment Spec In Lab Jannette Wood MD CHEMISTRY ORDERABLES Performing Organization Address [facility] Co de Phone Number [facility] [place] [address] * Tissue transglutaminase, IgA (10/16/2021 8:00 AM EST) TTG IgA Ab 0.3 0.1 - 10.0 u/ml [facility] Comment: Negative = <7 U/mL Equivocal = 7-10 U/mL Positive = >10 U/mL Blood 10/16/2021 8:00 AM EST 10/17/2021 6:45 AM EST Narrative Resulting Agency Comment Spec In Lab Jannette Wood MD IMMUNOLOGY ORDERABLE S Performing Organization Address [facility]/ZIP Co de Phone Number [facility] [place] [address] documented in this encounter Visit Diagnoses Diagnosis Change in bowel habits Other symptoms involving digestive system Diarrhea, unspecified type Dyslipidemia Other and unspecified hyperlipidemia documented in this encounter Care Teams Clutch Assembler Relationship Specialty Start Date End Date Jannette Wood MD [address] [facility] [place] [address] PCP - General Family Medicine 01/22/21 03/21/22 documented as of this encounter
--- OUTSIDE RECORDS SUMMARY | 2024-09-10 01:49 | XMS_ITS | Encounter Summary ---
Author Organization [facility] Address One [facility] [place] [address] Care Team Providers Care Studio Model Name Role Phone Unavailable Primary Care Provider Unavailabl e Encounter Details Date Type Department Care Team (Late st Contact Info) Description 04/01/2022 Telephone Sleep Center at [facility] [address] [place] [address] Didi Agulilon Social History Tobacco Use Types Packs/Day Years [...] encounter Miscellaneous Notes * Telephone Encounter - Didi Aguillon - 04/01/2022 9:19 AM EDT Failed HSAT due to less than 4 hours of usable technical data. Less than 3 hour of usable effort belt signal and less than 1 hour of usable nasal flow, cannula signal. Some issues with pulse oximetry. 2nd Failed HSAT. Please schedule for an in lab study. Thank you. Didi documented in this encounter Plan of Treatment Upcoming Encounters Date Type Department Care Team (Late st Contact Info) Description 12/08/2024 9:30 AM EDT TH Visit (TeleHealth) Sleep Center at [facility] [address] [place] [address] Mary [place] APRN [facility] [place] [address] documented as of this encounter Visit Diagnoses Not on filedocumented in this encounter
--- OUTSIDE RECORDS SUMMARY | 2024-09-10 01:49 | XMS_ITS | Encounter Summary ---
Author Organization [facility] [place] [address] Care Team Providers Care Animal Pathology Teacher Name Role Phone Jannette Wood MD Primary Care Provider [phone] Reason for Visit * Reason Onset Date Comments Post Procedure Call 10/03/2021 Encounter Details Date Type Department Care Team (Late st Contact Info) Description 10/03/2021 Telephone Gastroenterology at [address] [place] [address] Lachelle Ross, RN Post Procedure Call Social History Tobacco Use Types Packs/Day Years [...] encounter Miscellaneous Notes * Telephone Encounter - Lachelle Ross RN - 10/03/2021 10:19 AM EST Chest pain [] YES [x] NO Fever greater than 101 [] YES [x] NO Rectal Bleeding [] YES [x] NO * If any YES checked above route to [facility] pool in e-. IV site: [] Redness/swelling [] Pain [x] No complications Did you need to call the physician for any complications? [] YES [x] NO Any additional concerns n/a documented in this encounter Plan of Treatment Upcoming Encounters Date Type Department Care Team (Late st Contact Info) Description 12/08/2024 9:30 AM EDT TH Visit (TeleHealth) Sleep Center at [facility] [address] [place] [address] Mary Whitmore APRN [facility] [place] [address] documented as of this encounter Visit Diagnoses Not on filedocumented in this encounter Care Teams Animal Pathology Teacher Relationship Specialty Start Date End Date Jannette Wood MD [address] [facility] [place] [address] PCP - General Family Medicine 01/22/21 03/21/22 documented as of this encounter
--- OUTSIDE RECORDS SUMMARY | 2024-09-10 01:49 | XMS_ITS | Encounter Summary ---
Author Organization [facility] [place] [address] Care Team Providers Care Gem Technician Name Role Phone Unavailable Primary Care Provider Unavailabl e Encounter Details Date Type Department Care Team (Late st Contact Info) Description 08/14/2022 Telephone Sleep Center at [facility] [address] [place] [address] Batsheva Luna Social History Tobacco Use Types Packs/Day Years [...] encounter Miscellaneous Notes * Telephone Encounter - Batsheva Luna - 08/14/2022 9:29 AM EST Lvm/letter to schedule compliance - 07/03 setup documented in this encounter Plan of Treatment Upcoming Encounters Date Type Department Care Team (Late st Contact Info) Description 12/08/2024 9:30 AM EDT TH Visit (TeleHealth) Sleep Center at [facility] [address] [place] [address] Mary Whitmore APRN [facility] [place] [address] documented as of this encounter Visit Diagnoses Not on filedocumented in this encounter
--- OUTSIDE RECORDS SUMMARY | 2024-09-10 01:49 | XMS_ITS | Encounter Summary ---
Author Organization [facility] [place] [address] Care Team Providers Care Wrap Checker Name Role Phone Jannette Wood MD Primary Care Provider Encounter Details Date Type Department Care Team (Late st Contact Info) Description 07/18/2021 Telephone Gastroenterology at [address] [place] [address] Rizwana Azul CMA Social History Tobacco Use Types Packs/Day Years [...] Telephone Encounter - Rizwana Azul CMA - 07/18/2021 11:21 AM EDT Spoke to patient and she confirmed speaking to [facility] and states they told her that their recommendation from her last colonoscopy on 04/22/2016 is to repeat 10 years, so she will not be due until 04/22/2026. Recall in place. ----- Message from Merlyn Ferrell sent at 07/18/2021 11:12 AM EDT ----- Caller/Relationship: patient Contact #: [phone] Reason for call: Patient calling to schedule procedure off of referral documented in this encounter Plan of Treatment Upcoming Encounters Date Type Department Care Team (Late st Contact Info) Description 12/08/2024 9:30 AM EDT TH Visit (TeleHealth) Sleep Center at [facility] [address] [place] [address] Mary Whitmore APRN [facility] [place] [address] documented as of this encounter Visit Diagnoses Not on filedocumented in this encounter Care Teams Wrap Checker Relationship Specialty Start Date End Date Jannette Wood MD [address] [facility] [address] PCP - General Family Medicine 01/22/21 03/21/22 documented as of this encounter
--- OUTSIDE RECORDS SUMMARY | 2024-09-10 01:49 | XMS_ITS | Encounter Summary ---
Author Organization [facility] [place] [address] Care Team Providers Care Lace Burn Out Tender Name Role Phone Ana Florentino APRN Primary Care Provider [phone] Encounter Details Date Type Department Care Team (Late st Contact Info) Description 12/05/2023 10:00 AM EDT TH Visit (TeleHealth) Sleep Center at [facility] [address] [place] [address] [facility] [place] [address] DANIELLE on CPAP Social History Tobacco Use [...] Mass Index 30.61 12/04/2023 4:13 PM EDT documented in this encounter Progress Notes * Mary Whitmore INDEPENDENT JEWELER - 12/05/2023 10:00 AM EDT Sleep Medicine Telemedicine Follow-Up Note Patient is currently located at their home in [place] Patient provided verbal consent prior to initiation of this encounter and expressed understanding that the telemedicine visit may be billed similar to a clinic visit. A telehealth visit was necessary due to the ongoing COVID-19 public health emergency. CC: Ms. Violeta Suarez is a 58 y.o. female seen for telemedicine follow-up of mild obstructive sleepapnea. HPI: Sleep Study May 2022: Soft snoring was noted intermittently. Obstructive sleep apnea of a mild degree (AHI of 8.8) noted.[facility] AHI of 2.8 which includes only [...] Strap: no HCC: [employer] Update: Usage is a bit low due to traveling without CPAP. She tolerates CPAP well and does receive benefit. Humidity: yes Dry Mouth/Throat: no Symptoms: Patient-reported last 4 scores: 03/12/2022 7:24 AM 09/03/2022 11:09 AM 11/12/2022 8:33 AM 11/28/2023 8:45 AM [facility] [place] [facility] 9 (Low Risk) 1 (Low Risk) 0 (Low Risk) 0 (Low Risk) Insomnia Severity Index 9 (Subthreshold insomnia) 5 (No clinically significant insomnia) Snoring: Not on CPAP Nocturnal sleep quality improved: yes Daytime symptoms improved (Daytime sleepiness/fatigue): yes Naps: no Involuntary Dozing: no Sleepiness or Drowsiness when driving: no Sleep Pattern: Bedtime: 8-9p Position: laterally Rise time: 4:3a, for work Awakenings: once Card Data Download: Date Range: 09/05-12/03/23 Pressure: 5-15 cm Residual AHI: 0.8 95th% Leak: 7.6 Median Leak: 0.7 Average Usage (Days Used/Hours): 5hrs 50 min Days of usage: 70/90 % Days used > 4 hours: 66%, was traveling Previous Card Data Download: Date Range: 08/15-11/10/22 Pressure: 5-15 cm Residual AHI: 1.4 95th% Leak: 10.7 Median Leak: 0.7 Average Usage (Days Used/Hours): 6 hrs 54 min Days of usage: 68/88 % Days used > 4 hours: 67% Current Outpatient Medications Medication Instructions ARIPiprazole (ABILIFY) 5 mg, Oral, DAILY fluticasone propionate (FLONASE) 50 mcg/actuation [place], Suspension 2 sprays lamoTRIgine (LAMICTAL) 200 mg, Oral, NIGHTLY levocetirizine (XYZAL) 5 mg, Oral, DAILY OLANZapine zydis (ZYPREXA ZYDIS) 5 mg, Oral, NIGHTLY Active Ambulatory Problems Diagnosis Date Noted Depression Seasonal allergies Chronic headaches 05/11/2013 Influenza-like illness 10/06/2020 Chronic migraine without aura without status migrainosus, not intractable 03/21/2021 Chest pain, atypical 07/04/2021 Chronic frontal sinusitis 07/05/2021 Gastroesophageal reflux disease 07/04/2021 Memory impairment 07/04/2021 Migraine headache 07/04/2021 DANIELLE (obstructive sleep apnea) 06/05/2022 Resolved Ambulatory Problems Diagnosis Date Noted No Resolved Ambulatory Problems Past Medical History: Diagnosis Date Anxiety Back pain Headache Memory disorder Mild DANIELLE ROS: Constitutional: Weight change: patient not weighed today, based on most recent weight in Epic weight has been- Wt Readings from Last 3 Encounters: 12/04/23 73.5 kg (162 lb) 11/11/22 73.5 kg (162 lb) 09/03/22 72.6 kg (160 lb) ENT: Nasal Obstruction: no : Nocturia: no Time spent: total time of visit was 20 minutes, including face to face counseling, chart review anddocumentation Assessment: Ms. Violeta Suarez is a 58 y.o. female seen for obstructive sleep apnea. The data download reveals the AHI and leak appear to be well controlled. She is seeing benefit from CPAP. Her usageis on the low side due to travel. She is not interested in a Status Overload [employer] travel unit at this time. She has met complaince. Recommendations: Keep autoCPAP 5-15 cm Call DME company for questions on machine, [...] EDT TH Visit (TeleHealth) Sleep Center at [facility] [address] [place] [address] [facility] [place] [address] documented as of this encounter Visit Diagnoses Diagnosis DANIELLE on CPAP Obstructive sleep apnea (adult) (pediatric) documented in this encounter Care Teams Lace Burn Out Tender Relationship Specialty Start Date End Date Ana Florentino APRN PCP - General Family Medicine 11/15/22 documented as of this encounter
--- OUTSIDE RECORDS SUMMARY | 2024-09-10 01:49 | XMS_ITS | Encounter Summary ---
Author Organization [facility] Address [facility] [place] [address] Care Team Providers Care Art Class Model Name Role Phone Jannette Wood MD Primary Care Provider [phone] Reason for Visit * Auth/Cert Specialty Diagnoses [...] Expiration Date Visits Re quested Visits Authorized [id number] 1 1 Encounter Details Date Type Department Care Team (Late Contact Info) Description 09/28/2021 11:00 AM EST - 09/28/2021 11:30 AM EST Surgery Gastroenterology at [address] [place] [address] Gurdeep Queen MD [address] [facility] [place] [address] COLONOSCOPY, DIAGNOSTIC (WRVU 3.26) Social History Tobacco Use Types Packs/Day Years [...] CONCERNS, PLEASE CALL YOUR PHYSICIAN???S OFFICE AT [phone]. Advance Directives: After Your Visit Your Care [...] a person (called a durable power of income tax return preparer or a health care agent) who can [...] be made by a doctor or a commissary clerk who does not know you. Follow-up care [...] live in. You do not need a store stock associate to complete an advance directive. But you [...] include your home, a hospital, or a half-way. Would you like to have information about hospice care to support you and your family? Do you want to donate organs when you ? Do you want certain rastafarian practices performed before you ? If so, put your wishes in the advance directive. Read your advance directive every year, and make changes as needed. When should you call for help? Be sure to contact your doctor if you have any questions. Visit our health information library at [email or web address]. You can also view health information on [employer], your personal patient account. Log in or sign up today. Enter R264 in the search box to learn more about Advance Directives: After Your Visit. ?? [phone] [employer]. Care instructions adapted under license by [employer]. This care instruction is for use with your licensed healthcare professional. If you have questions about a medical condition or this instruction, always ask your healthcare professional. [employer] disclaims any warranty or liability for your use of this information. Content Version: 9.1.106091; Last Revised: October 04, 2009 documented in this encounter Medications at Time of Discharge Medication Sig Dispensed Refills Start Date End Date fluticasone propionate (FLONASE) 50 mcg/actuation [place], Suspension 2 sprays. 01/21/2020 levocetirizine (Xyzal) 5 [...] to Encounter Medication Sig Dispense Refill ??? Busqannwzp-Looryvpomoiqg-Msao (Fioricet) 50-300-40 mg Capsule Take 1 tablet by mouth. ??? prazosin (Minipress) 2 mg Capsule Take 2 mg by mouth nightly. ??? fluticasone propionate (FLONASE) 50 mcg/actuation [place], Suspension 2 sprays. ??? lamoTRIgine (LAMICTAL) 150 [...] EDT TH Visit (TeleHealth) Sleep Center at [address] [address] Mary Whitmore APRN [facility] [place] [address] documented as of this encounter Procedures Procedure Name Priority Date/Time Associated Diagnosis Comments SURGICAL PATHOLOGY REPORT Routine 09/28/2021 10:41 AM EST SPECIMEN TO PATHOLOGY Routine 09/28/2021 10:41 AM EST SPECIMEN TO PATHOLOGY Routine 09/28/2021 10:41 AM EST COLONOSCOPY Routine 09/28/2021 10:26 AM EST Colonoscopy, Diagnostic (79064) 09/28/2021 10:26 AM EST diverticulosis, hemorrhoids documented in this encounter Results * Surgical Pathology Report (09/28/2021 10:41 AM EST) Final Diagnosis [id number] ? Location: [facility] The signing pathologist has (i) examined the [...] MD Verified: ??10/03/2021 15:45 ??Pathologist Performed at: ??-[facility] Dept. of Pathology, [place], [place] SPECIMEN(S) SUBMITTED A - Right colon [...] labeled B1. ??mnd 10/03/2021 3:45 PM EST [facility] GI Biopsy 09/28/2021 10:4 1 AM EST 09/28/2021 10:41 AM EST GI Biopsy 09/28/2021 10:4 1 AM EST 09/28/2021 10:41 AM EST Gurdeep Queen MD PATHOLOGY/CYTOLOGY O JENNIE Performing Organization Address [facility] [place] [address] * Specimen to Pathology (09/28/2021 10:41 AM EST) AP Specimen 09/28/2021 10:4 1 AM EST 09/28/2021 10:41 AM EST Narrative [facility] - 09/28/2021 10:41 AM EST Specimen requisition ordered. ??Separate Pathology report to follow Gurdeep Queen MD PATHOLOGY/CYTOLOGY O JENNIE Performing Organization Address [facility] [place] [place] [address] * Specimen to Pathology (09/28/2021 10:41 AM EST) AP Specimen 09/28/2021 10:4 1 AM EST 09/28/2021 10:41 AM EST Narrative [facility] - 09/28/2021 10:41 AM EST Specimen requisition ordered. ??Separate Pathology report to follow Gurdeep Queen MD PATHOLOGY/CYTOLOGY O JENNIE Performing Organization Address [facility] [place] [address] * COLONOSCOPY (09/28/2021 10:26 AM EST) COLONOSCOPY [facility] Endoscopy ___ Patient Name: Violeta Suarez ??Procedure Date: 09/28/2021 10:26 AM ?Date of : 1965 Age: 56 ?Order #: [id number] ___ Procedure: ? Colonoscopy Indications: ? Chronic [...] rectal exam was performed. ? The SCOPE# [id number] was inserted in ? the anus and [...] Procedure Code(s): ?? --- Professional --- ? 99602, Colonoscopy, flexible; with ? biopsy, single or multiple ? --- Technical --- ? 89977, Colonoscopy, flexible; with ? biopsy, single or [...] ? abscess without bleeding CPT copyright 2019 [employer]. All rights reserved. The codes documented in this report are preliminary and upon radiation monitor review may be revised to meet current [...] Routine documented in this encounter Care Teams Art Class Model Relationship Specialty Start Date End Date Jannette Wood MD [address] [facility] [place] [address] PCP - General Family Medicine 01/22/21 03/21/22 documented as of this encounter
--- OUTSIDE RECORDS SUMMARY | 2024-09-10 01:49 | XMS_ITS | Encounter Summary ---
Author Organization [facility] Address [facility] [place] [address] Care Team Providers Care Flavor Maker Name Role Phone Jannette Wood MD Primary Care Provider Reason for Visit * Diagnostic Test (Routine) - Closed Specialty Diagnoses / Procedures Referred By Contac t Referred To Contact Radiology Diagnoses Sciatica, unspecified laterality Cervicalgia Classical migraine with intractable migraine Back muscle spasm Procedures XR Cervical Spine 2 or 3 Views Arelis Hussein DC [address] [address] Zns Rad Xray [address] [facility] [place] [address] Referral ID Status Reason Start Date Expiration Date V isits Requested Visits Authorized [id number] Closed Specialty Service Requested 05/23/2021 05/23/2022 1 1 Encounter Details Date Type Department Care Team (Latest Contact Info) Description 05/23/2021 8:45 AM EDT Ancillary Procedure XRay at [place] [address] [facility] [place] [address] Arelis Hussein DC [address] [facility] [address] [place], [place] [id number] Sciatica, unspecified laterality; Cervicalgia; Classical migraine with [...] EDT TH Visit (TeleHealth) Sleep Center at [facility] [address] [place] [address] Mary Whitmore APRN [facility] [place] [address] documented as of this encounter Procedures Procedure Name Priority Date/Time Associated Diagnosis Comments XR CERVICAL SPINE 2 OR 3 VIEWS Routine 05/23/2021 [...] who have questions please contact the health care professionals that requested your imaging first. ? Narrative [...] patients who have questions please contactthe health care professionals that requested your imaging first. Electronically signed by: Marvin Guerrier MD, [facility]([phone]), at 05/23/2021 9:14 AM Arelis Hussein DC IMG DX ORDERABLES * [...] who have questions please contact the health care professionals that requested your imaging first. ? Electronically signed by: Marvin Guerrier MD, [facility] ([phone]), at 05/23/2021 9:14 AM Narrative 05/23/2021 9:14 [...] patients who have questions please contactthe health care professionals that requested your imaging first. Electronically signed by: Marvin Guerrier MD, [facility]([phone]), at 05/23/2021 9:14 AM Arelis Hussein DC IMG DX ORDERABLES * [...] who have questions please contact the health care professionals that requested your imaging first. ? Narrative [...] patients who have questions please contactthe health care professionals that requested your imaging first. Arelis Rick Keenan DC IMG DX ORDERABLES documented in [...] back documented in this encounter Care Teams Flavor Maker Relationship Specialty Start Date End Date Jannette Wood MD [address] [facility] [place] [address] PCP - General Family Medicine 01/22/21 03/21/22 documented as of this encounter
--- OUTSIDE RECORDS SUMMARY | 2024-09-10 01:49 | XMS_ITS | Encounter Summary ---
Author Organization [facility] [place] [address] Care Team Providers Care Precision Farming Coordinator Name Role Phone Jannette Wood MD Primary Care Provider Reason for Referral * Consultation (Routine) - Closed Specialty Diagnoses / Procedures Referred By Contac t Referred To Contact Sleep Center Diagnoses Chronic fatigue Sundeep Bernardo APRN [address] [facility] [place] [address] [facility] Sleep Medicine [address] [place] [address] Referral ID Status Reason Start Date Expiration Date V isits Requested Visits Authorized [id number] Closed Consult, Test & Treat 12/12/2021 12/12/2022 1 1 * Psychiatric (Routine) - Closed Specialty Diagnoses / Procedures Referred By Contac t Referred To Contact Psychiatry Diagnoses Memory loss Procedures PRO NEUROBEHAVIORAL STATUS EXAM, FIRST HOUR PRO NEUROPSYCHOLOGICAL TEST EVAL PHYS/QHP 1ST HOUR PRO NEUROPSYCHOLOGICAL TEST EVAL PHYS/QHP EA ADDL HR TC PSYCL/NRPSYCL KNOCKOUT MAN 2+ TEST 1ST 30 MIN TC PSYCL/NRPSYCL KNOCKOUT MAN 2+ TEST EA ADDL 30 MIN Sundeep Bernardo APRN [address] [facility] [place] [address] Jannette Simpson, PhD [facility] [place] [address] Referral ID Status Reason Start Date Expiration Date V isits Requested Visits Authorized [id number] Closed Consult, Test & Treat 12/12/2021 12/12/2022 1 1 Reason for Visit * Reason Comments Memory Loss Encounter Details Date Type Department Care Team (Late st Contact Info) Description 12/12/2021 1:00 PM EDT Office Visit Neurology at [address] [phone] Sundeep Bernardo, NO [address] [facility] [place] [address] Memory loss; Chronic fatigue; Chronic migraine without aura without status migrainosus, not intractable Social History Tobacco Use Types Packs/Day Years [...] Sign Reading Time Taken Comments Blood Pressure 106/66 12/12/2021 12:49 PM EDT Pulse 80 12/12/2021 12:49 PM EDT Temperature - - Respiratory Rate - - Oxygen Saturation - - Inhaled Oxygen Concentration - - Weight 70.3 kg (155 lb) 12/12/2021 12:49 PM EDT Height 157.5 cm (5' 2) 12/12/2021 12:49 PM EDT Body Mass Index 28.35 12/12/2021 12:49 PM EDT documented in this encounter Progress Notes * Sundeep Bernardo APRN - 12/12/2021 1:00 PM EDT NEUROLOGY Follow up Visit [facility] at the [address], [address] [place] [address] Patient Active Problem List Diagnosis Code ??? Depression F32.A ??? Seasonal allergies J30.2 ??? Chronic headaches R51.9, G89.29 ??? Influenza-like illness J11.1 ??? Chronic migraine without aura without status migrainosus, not intractable G43.709 ??? Chest pain, atypical R07.89 ??? Chronic frontal sinusitis J32.1 ??? Gastroesophageal reflux disease K21.9 ??? Headache R51.9 ??? Memory impairment R41.3 ??? Migraine headache G43.909 Chief Complaint Patient presents with ??? Memory Loss History of Present Illness: This is a follow-up visit to the neurology department for this 56 y.o. female with chronic migraines and memory loss. Please refer to the initial consult note for the details regarding the clinical presentation of the patient. Violeta reports a history of headaches since age 13 yo. As she aged her headaches worsened. She can have about 12 headaches per month. Her headaches are located in the right frontal region. She can occasionally have pain behind her eyes. The pain is dull and aching 3/10 at onset and can progress into a throbbing 8-10/10 sensation associated with photophobia, occasional nausea, and rare vomiting. She was last seen in the office on 03/21/21 with plans to try nortriptyline, imitrex PRN, stop fioricet, and obtain her neuropsychological report. IMAGING -MRA head (04/08/13) Normal MRA of the brain. -CT per patient normal TODAY Violeta presents to the clinic for a follow up visit regarding her headaches. I have not evaluated this patient in 7 months. She is no longer moving to [place], but [place] Violeta cannot recall if nortriptyline was beneficial. She is no longer on it. She is using magnesium and a B complex vitamin which has been helpful for her headaches. Violeta is having 2 headaches per week, lasting 30 minutes with ibuprofen. Her headaches are located in the bifrontal regions. She denies pain to the temporal, parietal, occipital, or neck naman. The pain is dull 3/10 at onset and can progress into a throbbing 8-10/10 sensation associated with photophobia, occasional nausea, and rare vomiting. Violeta estimates about 1 migraine per month. She is not certain if imitrex was beneficial. She is no longer using it. Violeta is using fioricet PRN. She estimates taking this about once per month. This will eliminate a headache. Psych component: -Sleep: 6 hours of sleep per night. She denies issues falling asleep. She can have problems stayingasleep. She is waking about once per night and then has a hard time falling back to sleep. If she wakes at 2 AM, she will not be able to fall back to sleep. She has been using melatonin, which has been helpful. She denies snoring. She tends to wake feeling rested. Violeta can occasionally nap. -Mood: She reports anxiety and depression. She is using lamictal. She is following her PCP and a psychiatrist. She follows her psychiatrist once every 2- 3 months. She also sees a counselor every 2 weeks. She is struggling with anxiety.She denies any SI. -Energy: Active Violeta has been experiencing memory problems for the last 5 years. Lately she finds this is worsening. She feels as though she cannot retain new information. She cannot learn new things at work. Ronnyenis easily distracted. She denies any ADHD diagnosis. She has trouble finding words. She will substitute for another word. She had to change positions at work so she would not need to present as this would worsen her symptoms. She feels that this may be stress induced. She can have trouble with recall. For example difficulty remembering a phone number or a conversation. She needs to use a calendarto remind herself about appointments. She denies any issues taking medications. She does her own fin ances without issues. Occasionally will forget she had something in the stove and burn it, but thistends to occur when she is distracted. She denies any trouble with ADLs. Her paternal grandmother had dementia in her early 60s. ??? levocetirizine (XYZAL) 5 mg Tablet ??? prazosin (Minipress) 2 mg Capsule ??? fluticasone propionate (FLONASE) 50 mcg/actuation [place], Suspension ??? lamoTRIgine (LaMICtal) 150 mg Tablet ??? Zemtbdpkji-Xgwlatbiqqenu-Vlca (Fioricet) 50-300-40 mg Capsule Allergies Allergen Reactions ??? Pollen Extracts Family History Problem Relation Age of Onset ??? Cancer Mother precancerous pancreas ??? Hyperlipidemia Mother ??? Cancer Paternal Grandmother breast cancer ??? Alzheimer Disease Paternal Grandmother ??? Breast Cancer Paternal Grandmother ??? Prostate Cancer Father ??? Hyperlipidemia Father ??? Mental Illness Sister ??? Cancer Maternal Grandmother lung cancer ??? Colon Polyps Neg Hx ??? Colorectal Cancer Neg Hx Social History Tobacco Use ??? Smoking status: Former Smoker Packs/day: 1.00 ??? Smokeless tobacco: Never Used ??? Tobacco comment: quit- 1983 Vaping Use ??? Vaping Use: Never used Substance Use Topics ??? Alcohol use: Yes Alcohol/week: 8.0 standard drinks Types: 6 Glasses of wine, 2 Cans of beer per week ??? Drug use: No Review of Systems: Review of Systems Constitutional: Negative for chills and fever. HENT: Negative for congestion and sinus pain. Eyes: Positive for photophobia. Negative for blurred vision and double vision. Respiratory: Negative for cough. Cardiovascular: Negative for chest pain and palpitations. Gastrointestinal: Positive for nausea. Negative for vomiting. Musculoskeletal: Negative for neck pain. Neurological: Positive for headaches. Negative for dizziness, tingling, tremors, sensory change, speech change and weakness. Psychiatric/Behavioral: Positive for depression and memory loss. Negative for suicidal ideas. The patient is nervous/anxious and has insomnia. PHYSICAL EXAM Vital signs: Patient Vitals for the past 24 hrs: Pulse BP 12/12/21 1249 80 106/66 Constitutional: Pleasant, well-developed, well-nourished, and in no acute distress Head and Face: Normocephalic and atraumatic. Neurological: Awake, alert, and oriented to person, place, and time. MOCA 28/30 (missed 2 items on delayed recall. Same score as previously). The patient is able to answer my questions appropriately.Speech is fluent and clear. Extraocular movements are intact. There is no ptosis or nystagmus. Facial expression full and symmetric. Strength appears 5/5 throughout four limbs. Gait is normal. Skin: No rash or erythema present Psych: Judgement and mood are appropriate Clinical Impression: -Chronic migraine without aura, without status migrainosus, not intractable -Memory loss -Chronic fatigue Recommendations: 1) With 2 mild headaches per week we discussed using preventive medications or not. Patient was notinterested in preventive medications at this time. I did advise magnesium 250 mg daily (may cause diarrhea) and riboflavin 400 mg daily (may cause bright urine). 2) For more intense breakthrough headaches she will continue with fioricet PRN for now. She understands not to use this medication more than once per week as more frequent use can cause rebound headaches. 3) Discussed the use of a headache diary so we can better track the frequency and triggers of headaches. If her headaches start to occur more than twice per week she will contact the clinic to discuss a preventive medication. 4) Encouraged lifestyle changes including hydration, no skipping meals, adequate sleep, daily exercise, and stress management. 5) Her MOCA score was normal at 28. She forgot two items on delayed recall. We discussed how anxiety, depression, chronic migraines, and insomnia can play a role in memory. I will place a referral tosleep medicine and neuropsychology. These were placed through [employer] per patient request as she ismoving to [place]. 6) She will follow up PRN as she is moving to [place]. She will call with any questions or concerns in the meantime. I spent a total of 30 minutes associated with this encounter including chart review, the patient encounter, discussing and making treatment plans for medical conditions addressed during this encounter and documentation. Sundeep Bernardo APRN documented in this encounter Plan of Treatment Upcoming Encounters Date Type Department Care Team (Late st Contact Info) Description 12/08/2024 9:30 AM EDT TH Visit (TeleHealth) Sleep Center at [facility] [address] [place] [address] Mary Whitmore APRN [facility] [place] [address] Scheduled Referrals Name Type Priority Associated Diagnoses Order Schedule Referral to Neuropsychology Outpatient Referral Routine Memory loss Ordered: 12/12/2021 Referral to Sleep Disorders Center Outpatient Referral Routine Chronic fatigue Ordered: 12/12/2021 documented as of this encounter Visit Diagnoses Diagnosis Memory loss Chronic fatigue Other malaise and fatigue Chronic migraine without aura without status migrainosus, not intractable Chronic migraine without aura, without mention of intractable migraine without mention of status migrainosus documented in this encounter Care Teams [employer] Farm[employer] Coordinator Relationship Specialty Start Date End Date Jannette Wood MD [address] [facility] [place] [address] PCP - General Family Medicine 01/22/21 03/21/22 documented as of this encounter
--- OUTSIDE RECORDS SUMMARY | 2024-09-10 01:49 | XMS_ITS | Encounter Summary ---
Author Organization [facility] [place] [address] Care Team Providers Care Box Brander Name Role Phone Jannette Wood MD Primary Care Provider [phone] Encounter Details Date Type Department Care Team (Late st Contact Info) Description 09/26/2021 Telephone Gastroenterology at [address] [place] [address] River Hernández Social History Tobacco Use Types Packs/Day Years [...] encounter Miscellaneous Notes * Telephone Encounter - River Hernández - 09/26/2021 9:20 AM EST Spoke with patient to have her come in earlier for Colonoscopy procedure with Dr. Queen for 09/28/2021 at 10:00 AM (Arrival time). Patient confirmed new arrival time and transportation. Answers (Yes/No) COVID-19 HTI Screening Questions NO 1. COVID-19 Test: In the last 10 days, have you had a positive COVID-19 test or have you been told that you may have COVID-19 by a healthcare provider? If no, proceed to question 2 If yes to COVID Test , If the patient responds yes to having had COVID-19 within the last 10 days or has been told that they may have COVID--19 by a healthcare provider, instruct them to call their surgeon's office to reschedule their procedure. They must wait a minimum of 4 weeks to be rescheduledin the ASC per Anesthesia guidelines. NO 2. Symptoms: Do you have any of the following NEW or UNEXPLAINED symptoms? Fever (greater than 100.4 degrees F) ??? Cough ??? Shortness of Breath or Difficulty Breathing ??? New Loss of Taste or Smell ??? Sore throat ??? New muscle or body aches If No, proceed to question 3 If yes to any of the above symptom, If any of the above symptoms are present please ask the patientto call the GI office to reschedule their procedure. Even with a negative COVID-19 test, we cannot see patients with an active illness. NO 3. Exposure: Within the past 10 days, have you been in close physical contact (6 feet or closer for at least 15 minutes) with a person who is known to have laboratory- confirmed COVID-19? If Yes: ask patient : Are you 14 days or more beyond full vaccination (which is defined as the 2nd dose of Moderna or Pfizer or the 1st dose of Narciso & Narciso)? If no. proceed to question 4 If Yes to Exposure: Regardless of the patient's vaccination status, the patient must follow quarantine guidance per the Department of Health and Human Services.The patient should call their PCP for quarantine guidance and they should be rescheduled for their procedure. They must complete a 10 day qu arantine which starts the day of their LAST exposure to the COVID-19 positive person. NO 4. Travel: Within the past 10 days, have you traveled internationally or on a cruise ship? If Yes to Travel: If the patient has travelled internationally or on a cruise ship and is vaccinated, they are not required to quarantine. If the patient is NOT fully vaccinated, they are required toquarantine per the Department of Health and Human Services. This means that they may end quarantineafter 7 days with a negative COVID-19 PCR test performed on day 6 or day 7 post travel. documented in this encounter Plan of Treatment Upcoming Encounters Date Type Department Care Team (Late st Contact Info) Description 12/08/2024 9:30 AM EDT TH Visit (TeleHealth) Sleep Center at [facility] [address] [place] [address] Mary Whitmore APRN [facility] [place] [address] documented as of this encounter Visit Diagnoses Not on filedocumented in this encounter Care Teams Box Brander Relationship Specialty Start Date End Date Jannette Wood MD [address] [facility] [place] [place] [address] PCP - General Family Medicine 01/22/21 03/21/22 documented as of this encounter
--- OUTSIDE RECORDS SUMMARY | 2024-09-10 01:49 | XMS_ITS | Encounter Summary ---
Author Organization [facility] [place] [address] Care Team Providers Care Title Department Manager Name Role Phone Unavailable Primary Care Provider Unavailabl e Encounter Details Date Type Department Care Team (Late st Contact Info) Description 09/03/2022 11:00 AM EST TH Visit (TeleHealth) Sleep Center at [facility] [address] [place] [address] Mary Whitmore APRN [facility] [place] [address] DANIELLE on CPAP Social History Tobacco Use [...] - Inhaled Oxygen Concentration - - Weight 72.6 kg (160 lb) 09/03/2022 11:06 AM EST Height 157.5 cm (5' 2) 09/03/2022 11:06 AM EST Body Mass Index 29.26 09/03/2022 11:06 AM EST documented in this encounter Progress Notes * Mary Whitmore APRN - 09/03/2022 11:00 AM EST Sleep Medicine Telemedicine Follow-Up Note Patient is currently located at their home in [place] Patient provided verbal consent prior to initiation [...] of a mild degree (AHI of 8.8) noted.[facility] AHI of 2.8 which includes only [...] Interface/Mask: Nasal mask Difficulty tolerating mask interface: its' OK, took a while to get used to Chin Strap: no HCC: [employer] Update: Usage is on the low side due to mask issues and infections. Has found a good mask and is able to use CPAP nightly. Humidity: yes Dry Mouth/Throat: no Symptoms: Patient-reported last 4 scores: [facility] 03/12/2022 09/03/2022 [place] [facility] 9 (Low Risk) 1 (Low Risk) Insomnia Severity Index 9 (Subthreshold insomnia) - Snoring: Not sure Nocturnal sleep quality improved: yes Daytime symptoms improved (Daytime sleepiness/fatigue): yes Naps: occ Involuntary Dozing: no Sleepiness or Drowsiness when driving: no Sleep Pattern: Bedtime: 9p Position: laterally Rise time: 5a Awakenings: once Card Data Download: Date Range: 07/14-09/01/22 Pressure: 5-15 cm Residual AHI: 1.4 95th% Leak: 9.8 Median Leak: 1.6 Average Usage (Days Used/Hours): 5 hrs 30 min Days of usage: 28/50 % Days used > 4 hours: 34% Current Outpatient Medications Medication Instructions ??? fluticasone propionate (FLONASE) 50 mcg/actuation [place], Suspension 2 sprays ??? lamoTRIgine (LAMICTAL) 150 mg, 2 TIMES DAILY ??? levocetirizine (XYZAL) 5 mg, Oral, DAILY ??? OLANZapine zydis (ZYPREXA) 5 mg, Oral, NIGHTLY Active Ambulatory Problems Diagnosis Date Noted ??? [...] most recent weight in [facility] weight has been- Wt Readings from Last 3 Encounters: 09/03/22 72.6 kg (160 lb) 05/25/22 73 kg (161 lb) 03/11/22 72.6 kg (160 lb) ENT: Nasal Obstruction: [...] CPAP. Her usageis on the low side and she does not meet compliance at this time. She had infections and mask issues but has moved pass these issues and is now using CPAP nightly. Recommendations: Keep autoCPAP 5-15 cm PAP extension Call DME company for questions on machine, supply replacements, billing, and for confirming compliance met Continue to get PAP supplies at the recommended replacement intervals Driving safety discussed, recommend patient not drive if drowsy, if drowsy while driving, pull overand nap. Follow-up: 2 months or sooner if needed The patient indicates understanding of these issues and agrees with the plan. MARY WHITMORE APRN documented in this encounter Plan of Treatment Upcoming Encounters Date Type Department Care Team (Late st Contact Info) Description 12/08/2024 9:30 AM EDT TH Visit (TeleHealth) Sleep Center at [facility] [address] [place] [address] Mary Whitmore APRN [facility] [place] [address] documented as of this encounter Visit Diagnoses Diagnosis DANIELLE on CPAP Obstructive sleep apnea (adult) (pediatric) documented in this encounter
--- OUTSIDE RECORDS SUMMARY | 2024-09-10 01:49 | XMS_ITS | Encounter Summary ---
Author Organization [facility] Address [facility] [place] [address] Care Team Providers Care Construction Framer Name Role Phone Jannette Wood MD Primary Care Provider Reason for Referral * Diagnostic Test (Routine) - Closed Specialty Diagnoses / Procedures Referred By Alonso vela Referred To Contact Sleep Center Diagnoses Snoring Gasping for breath Non-restorative sleep Daytime sleepiness Overweight Anxiety and depression Memory deficits Procedures Home Sleep Study HST Mary Whitmore APRN [facility] [place] [address] [facility] [address] [place] [address] Referral ID Status Reason Start Date Expiration Date V isits Requested Visits Authorized [id number] Closed Specialty Service Requested 03/14/2022 05/12/2022 1 1 Reason for Visit * Consultation (Routine) - Closed Specialty Diagnoses / Procedures Referred By Alonso vela Referred To Contact Sleep Center Diagnoses Chronic fatigue Sundeep Bernardo APRN [address] [place] [address] [place] [address] [facility] [address] [place] [address] Referral ID Status Reason Start Date Expiration Date V isits Requested Visits Authorized [id number] Closed Consult, Test & Treat 12/12/2021 12/12/2022 1 1 Encounter Details Date Type Department Care Team (Late st Contact Info) Description 03/12/2022 9:00 AM EDT TH Visit (TeleHealth) Sleep Center at [facility] [address] [place] [address] Mary Whitmore APRN [facility] [place] [address] Snoring; Gasping for breath; Non-restorative sleep; Daytime sleepiness; Disrupted sleep-wake cycle; Overweight; Anxiety and depression; Memory deficits Social History Tobacco Use Types Packs/Day Years [...] - - Weight 72.6 kg (160 lb) 03/11/2022 1:45 PM EDT Height 156.2 cm (5' 1.5) 03/11/2022 1:45 PM EDT Body Mass Index 29.74 03/11/2022 1:45 PM EDT documented in this encounter Progress Notes * Mary Whitmore APRN - 03/12/2022 9:00 AM EDT Sleep Medicine Telemedicine Consultation Note The patient is currently located [place] in [place] Patient provided verbal consent prior to initiation of this telemedicine encounter. A telehealth visit was necessary due to the ongoing COVID-19 public health emergency. CC:Violeta Suarez is a 56 y.o. female seen at the request of Sundeep Bernardo APRN for advice regarding possible DANIELLE. HPI: Takes 5 mg prazosin at for anxiety and sleep maintenance insomnia, which helps. She has underlying anxiety and depression mostly controlled on Lamictal. She snores and can gasp for air while sleeping but neither are major issues. has never noted periods of apnea. She wakes a few times per night mostly for unknown reasons. She does not wake feeling refreshed. She is somewhat sleepy during the day but only occasionally naps on the w/e and does not involuntarily doze. Can get sleepy while driving long distances, no close calls or accidents. HX: Anxiety/depression, migraine ESPINOSA-currently not a major issue, memory problems times 5+ years, allergies, GERD, overweight, insomnia, OA Neuropsych testing referral placed, never done. Sleep Pattern: Bed/Recliner/Wedge: flat bed with one pillow, sleeps laterally Bedtime: 9 pm, takes prazosin nightly Lights out: same as BT Latency: within 5 minutes Awakenings: 3 times Reason: not sure why, occ to urinate Duration: generally able to return to sleep within 20 minutes Wake time: 5 am Rise time: sometimes reads for 15 minutes Respiratory: Snoring: yes, not loudly times years, worse when sleeping supine Observed Apneas: no Nocturnal Gasping: yes Nasal Obstruction: occ has allergies which cause congestion-takes meds to help Mouth Breathing: not generally Dry Mouth: no Daytime Symptoms: Patient-reported last 4 scores: [facility] 03/12/2022 [place] [facility] 9 (Low Risk) Insomnia Severity Index 9 (Subthreshold insomnia) Upon Awakening: never wakes feeling refreshed times years Naps: maybe on the w/e Involuntary Dozing: no Driving: yes, only on long trips Close calls related to sleepiness no Accidents related to sleepiness no Other Associates Sleep Symptoms: Parasomnias: Sleep Walking: no Dream Enactment: no Motor: RLS: no PLMS: no Medications: Current Outpatient Medications: ??? prazosin (Minipress) 5 mg Capsule, Take 5 mg by mouth every evening., Disp: , Rfl: ??? levocetirizine (XYZAL) 5 mg Tablet, Take 5 mg by mouth daily., Disp: , Rfl: ??? fluticasone propionate (FLONASE) 50 mcg/actuation [place], Suspension, 2 sprays., Disp: , Rfl: ??? lamoTRIgine (LaMICtal) 150 mg Tablet, Take 150 mg by mouth 2 times daily., Disp: , Rfl: Past Medical History: Active Ambulatory Problems Diagnosis Date Noted ??? Depression ??? Seasonal allergies ??? Chronic headaches 05/11/2013 ??? Influenza-like illness 10/06/2020 ??? Chronic migraine without aura without status migrainosus, not intractable 03/21/2021 ??? Chest pain, atypical 07/04/2021 ??? Chronic frontal sinusitis 07/05/2021 ??? Gastroesophageal reflux disease 07/04/2021 ??? Headache 07/05/2021 ??? Memory impairment 07/04/2021 ??? Migraine headache 07/04/2021 Resolved Ambulatory Problems Diagnosis Date Noted ??? No Resolved Ambulatory Problems Past Medical History: Diagnosis Date ??? Anxiety ??? Back pain ??? Memory disorder Social History: Living situation: lives with and 13 y/o daughter Employment: technical account representative Alcohol: yes, 1-2 glasses of wine per day Smoking: former, quit years ago and never heavy Caffeine: 1 cup of coffee per day Other drugs: no Family History: Family history of sleep disorders: no ROS: CON: weight change: no major changes ENT: nasal obstruction: see above PUL: SAUNDERS: mild CV: chest pain: no Palpitations: no LE edema: no GI: GERD: yes, takes PRN meds : Nocturia: no MSK: Pain: occ joint pain can bother her at night NEURO: sleep related headaches: no ALL: yes ENDO: no DM or thyroid dz PSY: Depression: yes, thinks meds help to some degree Anxiety: yes, thinks meds help to some degree PE: Ht 156.2 cm (5' 1.5) Wt 72.6 kg (160 lb) LMP 03/16/2013 BMI 29.74 kg/m?? General: NAD Eyes: conjunctiva clear ENT: Mandibular structure and position: normal NECK: Submental fat present: no LUNGS: respirations even and unlabored SKIN: no visible rashes NEURO: A&O times 3 PSYCH: Alert and appropriate: yes Affect: full range Mood: good Judgement and insight: intact Assessment: Violeta Suarez is a 56 y.o. female with a history of snoring, nocturnal gasping, disrupted sleep cycle, non restorative sleep and daytime sleepiness. Has the following physical features associated with DANIELLE; overweight. The history and symptoms are suspicious for obstructive sleep apnea. The diagnosis of obstructive sleep apnea was reviewed in detail with the patient at this time. Potential consequences of untreated obstructive sleep apnea reviewed, including increased cardiovascular risk. Treatment options reviewed in detail including PAP therapy, oral appliances. Patient confirms that study results can be released to their my account. Questions regarding diagnosis and management answeredat this time. Recommendations: 1. HST, she is aware she may need to return for an in lab PSG 2. Role of weight loss reviewed 3. Safe driving precautions extensively reviewed with the patient 4. F/U 6 weeks after starting PAP therapy if found to have DANIELLE. Plan discussed with the patient and they are in agreement. MARY WHITMORE APRN documented in this encounter Plan of Treatment Upcoming Encounters Date Type Department Care Team (Late st Contact Info) Description 12/08/2024 9:30 AM EDT TH Visit (TeleHealth) Sleep Center at [place] [address] [place] [address] Mary Whitmore APRN [facility] [place] [address] Scheduled Orders Name Type Priority Associated Diagnoses Orde r Schedule Home Sleep Study Sleep Center Routine Snoring Gasping for breath Non-restorative sleep Daytime sleepiness Overweight Anxiety and depression Memory deficits Expected: 03/12/2022, Expires: 03/12/2023 documented as of this encounter Visit Diagnoses Diagnosis Snoring Other dyspnea and respiratory abnormality Gasping for breath Non-restorative sleep Other sleep disturbances Daytime sleepiness Disrupted sleep-wake cycle 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
--- OUTSIDE RECORDS SUMMARY | 2024-09-10 01:49 | XMS_ITS | Encounter Summary ---
Author Organization [facility] Address [facility] [place] [address] Care Team Providers Care Internet Marketing Manager Name Role Phone Jannette Wood MD Primary Care Provider Reason for Referral * Consultation (Routine) - Closed Specialty Diagnoses / Procedures Referred By Contradha t Referred To Contact Gastroenterology Diagnoses Change in bowel habits Diarrhea, unspecified type Jannette Wood MD [address] [place] [address] [place] [address] [facility] [address] [place] [address] [place] [address] Referral ID Status Reason Start Date Expiration Date V isits Requested Visits Authorized [id number] Closed Test Only 09/25/2021 09/25/2022 1 1 Reason for Visit * Reason Comments Follow-up lipids profile is ab normal with high triglycerides. pt will get f/u labs tomorrow Other pt would like to dis cuss being tested for food alergys Encounter Details Date Type Department Care Team (Late st Contact Info) Description 09/25/2021 8:45 AM EST Office Visit Family Medicine at [address] [place] [address] Jannette Wood MD [address] [place] [address] [place] [address] Complex dyslipidemia (Primary Dx); Change in bowel habits; Diarrhea, unspecified type Social History Tobacco Use Types Packs/Day Years [...] Sign Reading Time Taken Comments Blood Pressure 122/68 09/25/2021 8:49 AM EST Pulse 86 09/25/2021 8:49 AM EST Temperature 36.4 ??C (97.6 ??F) 09/25/2021 8:49 AM ES T Respiratory Rate - - Oxygen Saturation 100% 09/25/2021 8:49 AM EST Inhaled Oxygen Concentration - - Weight 73.9 kg (163 lb) 09/25/2021 8:49 AM EST Height 157.5 cm (5' 2) 09/25/2021 8:49 AM EST Body Mass Index 29.81 09/25/2021 8:49 AM EST documented in this encounter Progress Notes * Jannette Wood MD - 09/25/2021 8:45 AM EST Subjective: Patient ID: Violeta Suarez is a 56 y.o. female. Chief Complaint Patient presents with ??? Follow-up lipids profile is abnormal with high triglycerides. pt will get f/u labs tomorrow ??? Other pt would like to discuss being tested for [facility] 09/25/2021 Total PHQ-9 3 (Minimal Depression) Total VAL-7 5 (Mild Anxiety) Audit Screener - Drug Screener - Violeta is here for a follow-up on her laboratory studies. Her fasting blood work revealed high cholesterol and triglycerides. She has history of high cholesterol in the past but her numbers are higherthis year than previous years. She denies any changes with her diet. Overall she reports eating relatively well. She has family history of hyper cholesterolemia on both parents. Today she is also reporting change in bowels. She has developed diarrhea over the last year. She had several loose bowel movement throughout the day until she eliminated dairy. Now she has been experiencing 1 loose stool a day. She denies any blood. She is concerned about possible celiac disease. Her last colonoscopy was 6 years ago. Review of Systems Constitutional: Negative for activity change, appetite change and fatigue. Respiratory: Negative for cough, chest tightness, shortness of breath and wheezing. Cardiovascular: Negative for chest pain, palpitations and leg swelling. Gastrointestinal: Positive for diarrhea. Negative for abdominal pain. Change in bowels Neurological: Negative for dizziness, weakness, light-headedness, numbness and headaches. Objective: There were no vitals taken for this visit. Physical Exam Vitals reviewed. Constitutional: Appearance: Normal appearance. HENT: Head: Normocephalic and atraumatic. Cardiovascular: Rate and Rhythm: Normal rate and regular rhythm. Pulses: Normal pulses. Heart sounds: Normal heart sounds. Pulmonary: Effort: Pulmonary effort is normal. No respiratory distress. Breath sounds: Normal breath sounds. No stridor. No wheezing or rhonchi. Abdominal: General: Bowel sounds are normal. Palpations: Abdomen is soft. There is no mass. Tenderness: There is no abdominal tenderness. There is no guarding. Hernia: No hernia is present. Musculoskeletal: General: No swelling or tenderness. Cervical back: Normal range of motion. Skin: General: Skin is warm. Findings: No rash. Neurological: Mental Status: She is alert. Mental status is at baseline. Psychiatric: Mood and Affect: Mood normal. Assessment and Plan: Violeta was seen today for follow-up and other. Diagnoses and all orders for this visit: Complex dyslipidemia Reviewed laboratory studies Discussed Mediterranean diet and physical activity We will recheck fasting labs-we will consider starting statin with persistent elevation of cholesterol and triglycerides Change in bowel habits Couple of months of change in bowels with diarrhea We will schedule colonoscopy for evaluation Diarrhea, unspecified type Some improvement with changing diet and eliminating dairy We will test for celiac disease Recommended colonoscopy Will consider GI consult after Other orders - Discontinue: Viibryd 10 mg Tablet - Discontinue: Viibryd 20 mg Tablet documented in this encounter Plan of Treatment Upcoming Encounters Date Type Department Care Team (Late st Contact Info) Description 12/08/2024 9:30 AM EDT TH Visit (TeleHealth) Sleep Center at [facility] [address] [place] [address] Mary Whitmore APRN [facility] [place] [address] Scheduled Referrals Name Type Priority Associated Diagnoses Orde r Schedule REFERRAL TO COLONOSCOPY PROCEDURE Outpatient Referral Routine Change in bowel habits Diarrhea, unspecified type Ordered: 09/25/2021 documented as of this encounter Results * Tissue transglutaminase, IgA (10/16/2021 8:00 AM EST) [facility] TTG IgA Ab 0.3 0.1 - 10.0 u/ml [facility] Comment: Negative = <7 U/mL Equivocal = 7-10 U/mL Positive = >10 U/mL Blood 10/16/2021 8:00 AM EST 10/17/2021 6:45 AM EST Narrative Resulting Agency Comment Spec In Lab Jannette Wood MD IMMUNOLOGY ORDERABLE S Performing Organization Address City/[facility]/ZIP Co de Phone Number [facility] [place] [address] * IgG (10/16/2021 8:00 AM EST) [facility] Immunoglobulin G 1,011 700 - 1,600 mg/dL [facility] Comment: Pediatric Reference Intervals obtained from the Caliper Reference Interval project. http://www.sickkids.ca/caliperproject/index.html Blood 10/16/2021 8:00 AM EST 10/16/2021 4:17 PM EST Narrative Resulting Agency Comment Spec In Lab Jannette Wood MD CHEMISTRY ORDERABLES [facility] [place] [address] * IgA (10/16/2021 8:00 AM EST) [facility] IgA 224 70 - 400 mg/dL [facility] Blood 10/16/2021 8:00 AM EST 10/16/2021 4:17 PM EST Narrative Resulting Agency Comment Spec In Lab Jannette Wood MD CHEMISTRY ORDERABLES [facility] [place] [address] documented in this encounter Visit Diagnoses Diagnosis Complex dyslipidemia- Primary Change in bowel habits Other symptoms involving digestive system Diarrhea, unspecified type documented in this encounter Care Teams Internet Marketing Manager Relationship Specialty Start Date End Date Jannette Wood MD [address] [facility] [place] [address] PCP - General Family Medicine 01/22/21 03/21/22 documented as of this encounter
--- OUTSIDE RECORDS SUMMARY | 2024-09-10 01:49 | XMS_ITS | Encounter Summary ---
Author Organization [facility] [place] [address] Care Team Providers Care Behavioral Specialist Name Role Phone Unavailable Primary Care Provider Unavailabl e Encounter Details Date Type Department Care Team (Late Contact Info) Description 08/20/2022 Telephone Sleep Center at [facility] [address] [place] [address] Mariela Ledbetter Social History Tobacco Use Types [...] * Telephone Encounter - Mariela Ledbetter - 08/20/2022 3:55 PM EST Spoke to patient on 08/21/2022 patient will mail in SD card for upcoming appointment documented in this encounter Plan of Treatment Upcoming Encounters Date Type Department Care Team (Late Contact Info) Description 12/08/2024 9:30 AM EDT TH Visit (TeleHealth) Sleep Center at [facility] [address] [place] [address] Mary Whitmore APRN [facility] [place] [address] documented as of this encounter Visit Diagnoses Not on filedocumented in this encounter
--- OUTSIDE RECORDS SUMMARY | 2024-09-10 01:49 | XMS_ITS | Encounter Summary ---
Author Organization [facility] Address [facility] [place] [address] Care Team Providers Care Medical File Clerk Name Role Phone Unavailable Primary Care Provider Unavailabl e Reason for Referral * Diagnostic Test (Routine) - Closed Specialty Diagnoses / Procedures Referred By Contac t Referred To Contact Sleep Center Diagnoses Snoring Gasping for breath Non-restorative sleep Daytime sleepiness Overweight Anxiety and depression Memory deficits Procedures Sleep Study Diagnostic PSG / Split Night PSG Mary Whitmore APRN [facility] [address] [facility] [address] [place] [address] Referral ID Status Reason Start Date Expiration Date V isits Requested Visits Authorized [id number] Closed Specialty Service Requested 05/17/2022 08/15/2022 1 1 Encounter Details Date Type Department Care Team (Late st Contact Info) Description 04/01/2022 Orders Only Sleep Center at [facility] [address] [place] [address] Mary Whitmore FORM BUILDING SUPERVISOR [facility] [place] [address] Snoring; Gasping for breath; Non-restorative sleep; Daytime sleepiness; Overweight; Anxiety and depression; Memory deficits Social [...] EDT TH Visit (TeleHealth) Sleep Center at [address] [address] Mary Whitmore APRN [facility] [place] [address] Scheduled Orders Name Type Priority Associated Diagnoses Orde r Schedule Sleep Study Diagnostic PSG / Split Night Sleep Center Routine Snoring Gasping for breath Non-restorative sleep Daytime sleepiness Overweight Anxiety and depression Memory deficits Expected: 04/01/2022, Expires: 03/31/2023 documented as of this encounter Visit Diagnoses Diagnosis Snoring Other dyspnea and respiratory abnormality Gasping for breath Non-restorative sleep Other sleep disturbances Daytime sleepiness Overweight Anxiety and depression Dysthymic disorder Memory deficits Memory loss documented in this encounter
--- OUTSIDE RECORDS SUMMARY | 2024-09-10 01:50 | XMS_ITS | Encounter Summary ---
Author Organization [facility] [place] [address] Care Team Providers Care Career Guidance Counselor Name Role Phone Any Hi MD Primary Care Provider Unavaila ble Encounter Details Date Type Department Care Team (Late st Contact Info) Description 05/20/2012 8:00 AM EDT Office Visit XRay at [address] [place] [phone] Pain Social History Tobacco Use Types Packs/Day Years Used Date Smoking Tobacco: Former Cigarettes Smokeless Tobacco: Never Alcohol Use Standard Drinks/Week Comments Yes 8 (1 standard drink = 0.6 oz pur e alcohol) Sex and Gender Information Value Date Recorded Sex Assigned at Not on file Gender Identity Not on file Sexual Orientation Not on file documented as of this encounter Miscellaneous Notes * Miscellaneous - Ceferino Beckman - 05/26/2012 10:47 AM EDT documented in this encounter Plan of Treatment Upcoming Encounters Date Type Department Care Team (Late st Contact Info) Description 12/08/2024 9:30 AM EDT TH Visit (TeleHealth) Sleep Center at [facility] [address] [place] [address] Mary Whitmore APRN [facility] [place] [address] documented as of this encounter Procedures Procedure Name Priority Date/Time Associated Diagnosis Comments XR KNEE DIAGNOSTIC 1 OR 2 VIEW Routine 05/20/2012 8:09 AM EDT Generalized pain documented in this encounter Results * XR KNEE DIAGNOSTIC 1 OR 2 VIEW (05/20/2012 8:09 AM EDT) Anatomical Region Laterality Modality Knee N/A Radiographic Yudith ging 05/20/2012 8:09 AM EDT Narrative 05/20/2012 2:01 PM EDT Examination Knee 1 Or 2 Views/RIGHT Clinical History R knee pain Comparison None Technique 2 views right knee. Findings Bone stock and alignment are normal. Mild degenerative changes of both knees, medial compartments present. Mild prepatellar soft tissue swelling. No suprapatellar joint effusion. ??No acute fracture or dislocation. Impression Mild degenerative changes of the knees, medial compartments. Procedure Note Penelope Mckinley MD - 05/20/2012 Examination Knee 1 Or 2 Views/RIGHT Clinical History R knee pain Comparison None Technique 2 views right knee. Findings Bone stock and alignment are normal. Mild degenerative changes of both knees, medial compartments present. Mild prepatellar soft tissue swelling. No suprapatellar joint effusion. No acute fracture or dislocation. Impression Mild degenerative changes of the knees, medial compartments. Eloisa Blackburn MD IMG DX ORDERABLE S documented in this encounter Visit Diagnoses Diagnosis Pain Generalized pain documented in this encounter Care Teams Career Guidance Counselor Relationship Specialty Start Date End Date Any Hi MD PCP - General 08/07/10 03/13/14 documented as of this encounter
--- OUTSIDE RECORDS SUMMARY | 2024-09-10 01:50 | XMS_ITS | Encounter Summary ---
Author Organization [facility] [place] [address] Care Team Providers Care Technical Manager Chemical Plant Name Role Phone Jannette Wood MD Primary Care Provider Reason for Visit * Reason Comments Facial Swelling Encounter Details Date Type Department Care Team (Late st Contact Info) Description 04/20/2021 8:00 AM EDT Office Visit Urgent Care at [address] [place] [address] Arnel Carter MD [address] [place] [address] [place] [address] Hordeolum externum of right upper eyelid Social History Tobacco Use Types Packs/Day Years [...] Sign Reading Time Taken Comments Blood Pressure 131/85 04/20/2021 8:09 AM EDT Pulse 78 04/20/2021 8:09 AM EDT Temperature 36.6 ??C (97.8 ??F) 04/20/2021 8:09 AM ED T Respiratory Rate - - Oxygen Saturation 100% 04/20/2021 8:09 AM EDT Inhaled Oxygen Concentration - - Weight 69.4 kg (153 lb) 04/20/2021 8:09 AM EDT Height 157.5 cm (5' 2) 04/20/2021 8:09 AM EDT Body Mass Index 27.98 04/20/2021 8:09 AM EDT documented in this encounter Patient Instructions * Patient Instructions* Arnel Carter MD - 04/20/2021 8:00 AM EDT Images from the original note were not included. Call Urgent Care [phone] if you have questions related to your visit. Follow-up with your doctor's office if problems or not improved or have another walk-in appointmentin Urgent Care Urgent Care walk-in hours are 8 am to 8 pm Mon to Fri, and 8 am to 4 pm Sat and Sun . Call us first if you have time and are stable Patient Education Styes and Chalazia: Care Instructions Your Care Instructions Styes and chalazia (say udw-NAK-skv-uh) are both conditions that can cause swelling of the eyelid. A stye is an infection in the root of an eyelash. The infection causes a tender red lump on the edge of the eyelid. The infection can spread until the whole eyelid becomes red and inflamed. Styes usually break open, and a tiny amount of pus drains. They usually clear up on their own in about a week, but they sometimes need treatment with antibiotics. A chalazion is a lump or cyst in the eyelid (chalazion is singular; chalazia is plural). It is caused by swelling and inflammation of deep oil glands inside the eyelid. Chalazia are usually not infected. They can take a few months to heal. If a chalazion becomes more swollen and painful or does not go away, you may need to have it drained by your doctor. Follow-up care is a simon part of your treatment and safety. Be sure to make and go to all appointments, and call your doctor if you are having problems. It's also a good idea to know your test resultsand keep a list of the medicines you take. How can you care for yourself at home? ?? Do not rub your eyes. Do not squeeze or try to open a stye or chalazion. ?? To help a stye or chalazion heal faster: ? Put a warm, moist compress on your eye for 5 to 10 minutes, 3 to 6 times a day. Heat often bringsa stye to a point where it drains on its own. Keep in mind that warm compresses will often increaseswelling a little at first. ? Do not use hot water or heat a wet cloth in a microwave oven. The compress may get too hot and can burn the eyelid. ?? Always wash your hands before and after you use a compress or touch your eyes. ?? If the doctor gave you antibiotic drops or ointment, use the medicine exactly as directed. Use the medicine for as long as instructed, even if your eye starts to feel better. ?? To put in eyedrops or ointment: ? Tilt your head back, and pull your lower eyelid down with one finger. ? Drop or squirt the medicine inside the lower lid. ? Close your eye for 30 to 60 seconds to let the drops or ointment move around. ? Do not touch the ointment or dropper tip to your eyelashes or any other surface. ?? Do not wear eye makeup or contact lenses until the stye or chalazion heals. ?? Do not share towels, pillows, or washcloths while you have a stye. When should you call for help? Call your doctor now or seek immediate medical care if: ? You have pain in your eye. ? You have a change in vision or loss of vision. ? Redness and swelling get much worse. Watch closely for changes in your health, and be sure to contact your doctor if: ? Your stye does not get better in 1 week. ? Your chalazion does not start to get better after several weeks. Where can you learn more? Visit our health information library at [email or web address] [email or web address] You can also view health information on [employer], your personal patient account. Log in or sign uptoday. Enter C853 in the search box to learn more about Styes and Chalazia: Care Instructions. Current as of: May 15, 2020?Content Version: 12.9 ?? [id number] [employer]. Care instructions adapted under license by [facility]. If you have questions about a medical condition or this instruction, always ask your healthcare professional. [employer] disclaims any warranty or liability for your use of this information. documented in this encounter Progress Notes * Arnel Carter MD - 04/20/2021 8:00 AM EDT Subjective: Patient ID: Violeta Suarez is a 56 y.o. female. Redness and swelling of the right eye X 2 days . Bump omn the upper lid. Saline drops used with mild relief. 3 w ago had a similar prob on the L lower eyelid that resolved after a week. Recently restarted eye make up. Not itchy, was painful, ibuprofen effective. Seeing something foggy in the R eye.Last eye exam was awhile Wears glasses for computer and reading. Working a lot, has insomnia, is a assessment technician Review of Systems Eyes: Positive for photophobia and visual disturbance (eyelid swellling is in the way). Negative for discharge and itching. Objective: BP 131/85 Pulse 78 Temp 36.6 ??C (97.8 ??F) (Temporal) Ht 157.5 cm (5' 2) Wt 69.4 kg (153 lb) SpO2 100% BMI 27.98 kg/m?? Physical Exam Constitutional: General: She is not in acute distress. Appearance: She is well-developed. She is not ill-appearing or diaphoretic. HENT: Head: Normocephalic. Eyes: General: No scleral icterus. Right eye: Hordeolum (upper eyelid) present. No discharge. Left eye: No discharge. Conjunctiva/sclera: Conjunctivae normal. Right eye: Right conjunctiva is not injected. No chemosis or exudate. Left eye: Left conjunctiva is not injected. No chemosis or exudate. Pupils: Right eye: Pupil is round, reactive and not sluggish. Left eye: Pupil is round, reactive and not sluggish. Funduscopic exam: Right eye: No papilledema. Left eye: No papilledema. Musculoskeletal: General: Normal range of motion. Skin: Findings: No rash. Neurological: Mental Status: She is alert. Motor: No abnormal muscle tone. Coordination: Coordination normal. Psychiatric: Speech: Speech normal. Behavior: Behavior normal. Behavior is cooperative. Assessment and Plan: Violeta was seen today for facial swelling. Diagnoses and all orders for this visit: Hordeolum externum of right upper eyelid All discussed - see instructions Violeta was agreeable to the plans documented in this encounter Plan of Treatment Upcoming Encounters Date Type Department Care Team (Late st Contact Info) Description 12/08/2024 9:30 AM EDT TH Visit (TeleHealth) Sleep Center at [facility] [address] [place] [address] Mary Whitmore APRN [facility] [address] documented as of this encounter Visit Diagnoses Diagnosis Hordeolum externum of right upper eyelid Hordeolum externum documented in this encounter Care Teams Technical Manager Chemical Plant Relationship Specialty Start Date End Date Jannette Wood MD [address] [facility] [place] [address] PCP - General Family Medicine 01/22/21 03/21/22 documented as of this encounter
--- OUTSIDE RECORDS SUMMARY | 2024-09-10 01:50 | XMS_ITS | Encounter Summary ---
Author Organization [facility] Address [facility] [place] [address] Care Team Providers Care Surgical Services Asst Name Role Phone Any Hi MD Primary Care Provider Unavaila ble Encounter Details Date Type Department Care Team (Latest Contact Info) Description 04/08/2013 3:00 PM EDT Laboratory Appointment Lab [address] [address] Any Hi MD Healthcare maintenance Discharge Disposition: Home Social History Tobacco Use [...] TH Visit (TeleHealth) Sleep Center at [facility] [address] [place] [address] Mary Whitmore APRN [facility] [place] [address] documented as of this encounter Procedures Procedure Name Priority Date/Time Associated Diagnosis Comments DIFFERENTIAL, AUTOMATED Routine 04/08/2013 3:08 PM EDT CBC (WITH DIFF) Routine 04/08/2013 3:08 PM EDT Healthcare maintenance GLUCOSE Routine 04/08/2013 3:08 PM EDT Healthcare maintenance CHOLESTEROL, TOTAL Routine 04/08/2013 3: 08 PM EDT Healthcare maintenance documented in this encounter Results * Differential, Automated (04/08/2013 3:08 PM EDT) Neutrophil % 55.6 34.0 - 71.0 % CERNER MILLENNIUM Neutrophil Absolute 4.58 1.50 - 6.30 x10(3)/mcL CERNER MILLENNIUM Lymph % 33.9 19.0 - 53.0 % CERNER MILLENNIUM Lymphocytes Abs 2.8 1.0 - 3.6 x10(3)/mcL CERNER MILLENNIUM Monocyte % 8.7 4.0 - 13.0 % CERNER MILLENNIUM Monocyte Abs 0.7 0.2 - 1.0 x10(3)/mcL CERNER MILLENNIUM Eos % 1.3 0.0 - 7.0 % CERNER MILLENNIUM Eosinophils Abs 0.1 0.0 - 0.5 x10(3)/mcL CERNER MILLENNIUM Basophil % 0.4 0.0 - 2.0 % CERNER MILLENNIUM Baso Absolute 0.0 0.0 - 0.2 x10(3)/mcL CERNER MILLENNIUM Immature Gran % 0.10 0.00 - 0.66 % CERNER MILLENNIUM Comment: Immature granulocytes(IG's)percentage and absolute count will include metamyelocytes, myelocytes, and promyelocytes. Blood smears from CBCs yielding IG's will be scanned manually for concordance. If this scan disagrees with the automated IG or if promyelocytes are noted, a manual differential will be performed. Immature Gran Absolute 0.01 0.00 - 0.05 x10(3)/mcL CERNER MILLENNIUM Blood specimen (specimen) 04/08/2013 3:08 PM EDT 04/08/2013 10:48 PM EDT Any Hi MD HEMATOLOGY ORDERABLE S CERNER MILLENNIUM * Glucose, random (04/08/2013 3:08 PM EDT) Glucose 89 60 - 199 mg/dL CERNER MILLENNIUM Comment:Diabetes: >=200 mg/d L plus symptoms Blood specimen (specimen) 04/08/2013 3:08 PM EDT 04/08/2013 10:44 PM EDT Narrative Resulting Agency Comment Spec In Lab Any Hi MD CHEMISTRY ORDERABLES Performing Organization Address City/[facility] Co de Phone Number [facility] MARGOTHIUM * Cholesterol, total (04/08/2013 3:08 PM EDT) Cholesterol, Total 193 <=199 mg/dL [facility] ZAYENNIUM Comment: Recommendations of the NCEP Adult Treatment Panel for the following risk cutoff thresholds for the [place] population: Desirable: <200 mg/dL Borderline High: 200-239 mg/dL High: > or = 240 mg/dL Blood specimen (specimen) 04/08/2013 3:08 PM EDT 04/08/2013 10:44 PM EDT Narrative Resulting Agency Comment Spec In Lab Any Hi MD CHEMISTRY ORDERABLES Performing Organization Address [facility] de Phone Number [facility] JUSTINIUM * (ABNORMAL) CBC (with Diff) (04/08/2013 3:08 PM EDT) White Blood Cell 8.2 4.0 - 10.0 x10(3)/mc L CERNER MILLENNIUM Red Blood Cell 3.91(L) 3.93 - 5.22 x10(6)/mc L CERNER MILLENNIUM Hemoglobin 13.0 11.2 - 15.7 gm/dL CERNER MILLENNIUM Hematocrit 37.6 34.0 - 45.0 % CERNER MILLENNIUM Mean Cell Volume 96.2(H) 79.0 - 94.0 fL CERNER MILLENNIUM Mean Cell Hemoglobin 33.2(H) 26.6 - 32.2 pg CERNER MILLENNIUM Mean Cell Hemoglobin Concentration 34.6 32.0 - 36.5 gm/dL CERNER MILLENNIUM Platelet 325 145 - 370 x10(3)/mc L [facility] RDW Standard Deviation 41.7 35.0 - 46.0 fL [facility] RDW coefficient of variation 11.9 10.9 - 14.4 % [facility] Mean Platelet Volume 10.6 9.0 - 12.0 fL [facility] Blood specimen (specimen) 04/08/2013 3:08 PM EDT 04/08/2013 10:48 PM EDT Narrative Resulting Agency Comment Spec In Lab Any Hi MD HEMATOLOGY ORDERABLE S [facility] documented in this encounter Visit Diagnoses Diagnosis Healthcare maintenance Routine general medical examination at a health care facility documented in this encounter Care Teams Surgical Services Asst Relationship Specialty Start Date End Date Any Hi MD PCP - General 08/07/10 03/13/14 documented as of this encounter
--- OUTSIDE RECORDS SUMMARY | 2024-09-10 01:50 | XMS_ITS | Encounter Summary ---
Author Organization [facility] [place] [address] Care Team Providers Care Chute Builder Name Role Phone Jannette Wood MD Primary Care Provider [phone] Reason for Visit * Reason Onset Date Comments Medication Refill 04/19/2021 Encounter Details Date Type Department Care Team (Late Contact Info) Description 04/19/2021 Telephone Neurology at [address] [address] Alejandrina Thompson CMA Medication Refill Social History Tobacco Use Types Packs/Day Years [...] encounter Miscellaneous Notes * Telephone Encounter - Alejandrina Thompson CMA - 04/19/2021 11:33 AM EDT [facility] pharmacy requested Refill on Nortriptyline. Called pt to verify that Nortriptyline was D/c. Pt stated that she had side effects and stop takingNortriptyline. documented in this encounter Plan of Treatment Upcoming Encounters Date Type Department Care Team (Late st Contact Info) Description 12/08/2024 9:30 AM EDT TH Visit (TeleHealth) Sleep Center at [facility] [address] [place] [address] Mary Whitmore APRN [facility] [place] [address] documented as of this encounter Visit Diagnoses Not on filedocumented in this encounter Care Teams Chute Builder Relationship Specialty Start Date End Date Jannette Wood MD [address] [facility] [place] [address] PCP - General Family Medicine 01/22/21 03/21/22 documented as of this encounter
--- OUTSIDE RECORDS SUMMARY | 2024-09-10 01:50 | XMS_ITS | Encounter Summary ---
Author Organization [facility] [place] [address] Care Team Providers Care Racehorse Trainer Name Role Phone Any Hi MD Primary Care Provider Unavaila ble Encounter Details Date Type Department Care Team (Latest Contact Info) Description 04/09/2012 3:15 PM EDT Laboratory Appointment Lab [address] [address] Any Hi MD Depression Discharge Disposition: Home Social History Tobacco Use Types Packs/Day Years Used Date Smoking Tobacco: Never Smokeless Tobacco: Never Alcohol Use Standard Drinks/Week [...] Visit (TeleHealth) Sleep Center at [facility] [address] [place] [address] [facility] [place] [address] documented as of this encounter Procedures Procedure Name Priority Date/Time Associated Diagnosis Comments T3, FREE Routine 04/09/2012 3:16 PM EDT Depression TSH Routine 04/09/2012 3:16 PM EDT Depression T4, FREE Routine 04/09/2012 3:16 PM EDT Depression documented in this encounter Results * TSH (04/09/2012 3:16 PM EDT) Thyroid Stimulating Hormone 2.41 0.27 - 4.20 mcIU/mL CERNER MILLENNIUM Blood specimen (specimen) 04/09/2012 3:16 PM EDT 04/09/2012 11:20 PM EDT Narrative Resulting Agency Comment Spec In Lab Any Hi MD CHEMISTRY ORDERABLES Performing Organization Address City/[facility] Co de Phone Number [facility] MILLENNIUM * T4, free (04/09/2012 3:16 PM EDT) Free T4 1.32 0.90 - 1.60 ng/dL CERNER MILLENNIUM Blood specimen (specimen) 04/09/2012 3:16 PM EDT 04/09/2012 11:20 PM EDT Narrative Resulting Agency Comment Spec In Lab Any Hi MD CHEMISTRY ORDERABLES Performing Organization Address [facility] Co de Phone Number [facility] ZAYENNIUM * T3, free (04/09/2012 3:16 PM EDT) Free T3 3.0 2.0 - 3.5 pg/mL CERNER MILLENNIUM Comment: Test Performed by: [place] [address] Food Safety Officer: Roma Morrison, Ph.D. Blood specimen (specimen) 04/09/2012 3:16 PM EDT 04/10/2012 8:43 AM EDT Narrative Resulting Agency Comment Spec In Lab Any Hi MD CHEMISTRY ORDERABLES Performing Organization Address City/[facility] Co de Phone Number [facility] ZAYENNIUM documented in this encounter Visit Diagnoses Diagnosis Depression Depressive disorder, not elsewhere classified documented in this encounter Care Teams Racehorse Trainer Relationship Specialty Start Date End Date Any Hi MD PCP - General 08/07/10 03/13/14 documented as of this encounter
--- OUTSIDE RECORDS SUMMARY | 2024-09-10 01:50 | XMS_ITS | Encounter Summary ---
[place] [address] Care Team Providers Care Deli Department Manager Name Role Phone Any Hi MD Primary Care Provider Unavaila ble Encounter Details Date Type Department Care Team (Late st Contact Info) Description 07/17/2010 [place] [phone] Any Hi MD Social History Tobacco Use Types Packs/Day Years Used Date Smoking Tobacco: Never Assessed Sex and Gender Information Value Date Recorded Sex Assigned at Not on file Gender Identity Not on file Sexual Orientation Not on file documented as of this encounter Plan of Treatment Upcoming Encounters Date Type Department Care Team (Late st Contact Info) Description 12/08/2024 9:30 AM EDT TH Visit (TeleHealth) Sleep Center at [address] [place] [address] Mary Whitmore APRN [facility] [place] [address] documented as of this encounter Procedures Procedure Name Priority Date/Time Associated Diagnosis Comments DIFFERENTIAL, AUTOMATED Routine 07/17/2010 3:07 PM EDT CBC (WITH DIFF) Routine 07/17/2010 3:07 PM EDT GLUCOSE Routine 07/17/2010 3:07 PM EDT CHOLESTEROL, TOTAL Routine 07/17/2010 3: 07 PM EDT documented in this encounter Results * (ABNORMAL) REFLEX LAB-A-DIFF (07/17/2010 3:07 PM EDT) Neutrophil % 71.5(H) 34.0 - 71.0 % CERNER MILLENNIUM Neutrophil Absolute 7.06(H) 1.50 - 6.30 x10(3)/mc L CERNER MILLENNIUM Lymph % 20.0 19.0 - 53.0 % CERNER MILLENNIUM Lymphocytes Abs 2.0 1.0 - 3.6 x10(3)/mc L CERNER MILLENNIUM Monocyte % 6.4 4.0 - 13.0 % CERNER MILLENNIUM Monocyte Abs 0.6 0.2 - 1.0 x10(3)/mc L CERNER MILLENNIUM Eos % 1.4 0.0 - 7.0 % CERNER MILLENNIUM Eosinophils Abs 0.1 0.0 - 0.5 x10(3)/mc L CERNER MILLENNIUM Basophil % 0.4 0.0 - 2.0 % CERNER MILLENNIUM Baso Absolute 0.0 0.0 - 0.2 x10(3)/mc L CERNER MILLENNIUM Immature Gran % 0.30 0.00 - 0.66 % CERNER MILLENNIUM Comment: Immature granulocytes(IG's)percentage and absolute count will include metamyelocytes, myelocytes, and promyelocytes. Blood smears from CBC's yielding IG's will be scanned manually for concordance. If this scan disagrees with the automated IG or if promyelocytes are noted, a manual differential will be performed. Immature Gran Absolute 0.03 0.00 - 0.05 x10(3)/mc L CERNER MILLENNIUM Blood specimen (specimen) 07/17/2010 3:07 PM EDT 07/17/2010 11:36 PM EDT Any Hi MD HEMATOLOGY ORDERABLE S CERNER MILLENNIUM * (ABNORMAL) CBC (07/17/2010 3:07 PM EDT) Pathologist [facility] White Blood Cell 9.9 4.0 - 10.0 x10(3)/mc L [facility] Red Blood Cell 3.99 3.93 - 5.22 x10(6)/mc L [facility] MILLENNIUM Hemoglobin 13.1 11.2 - 15.7 gm/dL [facility] MILLENNIUM Hematocrit 38.1 34.0 - 45.0 % CERNER MILLENNIUM Mean Cell Volume 95.5(H) 79.0 - 94.0 fL CERNER MILLENNIUM Mean Cell Hemoglobin 32.8(H) 26.6 - 32.2 pg [facility] MILL[facility] Mean Cell Hemoglobin Concentration 34.4 32.0 - 36.5 gm/dL [facility] MILLENNIUM Platelet 270 145 - 370 x10(3)/mc L [facility] MILLENNIUM RDW Standard Deviation 40.3 35.0 - 46.0 fL CERNER MILLENNIUM RDW coefficient of variation 11.6 10.9 - 14.4 % CERNER MILLENNIUM Mean Platelet Volume 10.8 9.0 - 12.0 fL [facility] MILLENNIUM Blood specimen (specimen) 07/17/2010 3:07 PM EDT 07/17/2010 11:36 PM EDT Any Hi MD HEMATOLOGY ORDERABLE S [facility] * CHOLESTEROL, TOTAL (07/17/2010 3:07 PM EDT) [facility] Cholesterol, Total 177 <=199 mg/dL [facility] Comment: Recommendations of the NCEP Adult Treatment Panel for the following risk cutoff thresholds for the [place] population: Desirable: <200 mg/dL Borderline High: 200-239 mg/dL High: > or = 240 mg/dL Blood specimen (specimen) 07/17/2010 3:07 PM EDT 07/17/2010 11:23 PM EDT Any Hi MD CHEMISTRY ORDERABLES [facility] * GLUCOSE, RANDOM (07/17/2010 3:07 PM EDT) Glucose 100 <=199 mg/dL [facility] Comment:Diabetes: >=200 mg/d L plus symptoms Blood specimen (specimen) 07/17/2010 3:07 PM EDT 07/17/2010 11:23 PM EDT Any Hi MD CHEMISTRY ORDERABLES [facility] documented in this encounter Visit Diagnoses Not on filedocumented in this encounter Care Teams Deli Department Manager Relationship Specialty Start Date End Date Any Hi MD PCP - General 08/07/10 03/13/14 documented as of this encounter
--- OUTSIDE RECORDS SUMMARY | 2024-09-10 01:50 | XMS_ITS | Encounter Summary ---
Author Organization [facility] [place] [address] Care Team Providers Care Airframe Technician Name Role Phone Unknown Primary Care Provider Unavailabl e Encounter Details Date Type Department Care Team (Late st Contact Info) Description 11/17/2018 Ancillary Procedure Radiology at [address] [place] [address] [place] [address] [place] [address] [place] [address] Social History Tobacco Use Types Packs/Day Years [...] EDT TH Visit (TeleHealth) Sleep Center at [facility] [address] [place] [address] Mary Whitmore APRN [facility] [place] [address] documented as of this encounter Procedures Procedure Name Priority Date/Time Associated Diagnosis Comments FILM LIBRARY STORAGE ONLY MAMMO Routine 11/17/2018 12:00 AM EST documented in this encounter Results * Film Library- Storage Only Mammo (11/17/2018 12:00 AM EST) Narrative BETO - 04/12/2021 8:18 AM EDT This exam is auto-finalizing. It's purpose is for storage only. Chad Villasenor DO IMG FILM LIBRARY ORD ERABLES Performing Organization Address City/State/[facility] Co de Phone Number [place], [place] documented in this encounter Visit Diagnoses Not on filedocumented in this encounter Care Teams Airframe Technician Relationship Specialty Start Date End Date Unknown None PCP - General 09/01/17 01/21/21 documented as of this encounter
--- OUTSIDE RECORDS SUMMARY | 2024-09-10 01:50 | XMS_ITS | Encounter Summary ---
Author Organization [facility] Address [facility] [place] [address] Care Team Providers Care Professor Of Physical Education Name Role Phone Any Hi MD Primary Care Provider Unavaila ble Encounter Details Date Type Department Care Team (Late st Contact Info) Description 09/28/2010 9:00 AM EST Office Visit Family Practice at [place] [address] [place] [address] Linda Henderson PA [address] [place] [address] Social History Tobacco Use Types Packs/Day Years [...] EDT TH Visit (TeleHealth) Sleep Center at [facility] [address] [place] [address] Mary Whitmore APRN [facility] [address] documented as of this encounter Visit Diagnoses Not on filedocumented in this encounter Care Teams Professor Of Physical Education Relationship Specialty Start Date End Date Any Hi MD PCP - General 08/07/10 03/13/14 documented as of this encounter
--- OUTSIDE RECORDS SUMMARY | 2024-09-10 01:50 | XMS_ITS | Encounter Summary ---
Author Organization [facility] [place] [address] Care Team Providers Care Roustabout Pusher Name Role Phone Unavailable Primary Care Provider Unavailabl e Encounter Details Date Type Department Care Team (Late st Contact Info) Description 07/17/2010 2:00 PM EDT Office Visit Family Practice at [address] [phone] Any Hi MD Social History Tobacco Use [...] EDT TH Visit (TeleHealth) Sleep Center at [facility] [address] [place] [address] Mary Whitmore APRN [facility] [place] [address] documented as of this encounter Visit Diagnoses Not on filedocumented in this encounter
--- OUTSIDE RECORDS SUMMARY | 2024-09-10 01:50 | XMS_ITS | Encounter Summary ---
Author Organization [facility] Address [facility] [place] [address] Care Team Providers Care Order Processor Name Role Phone Any Hi MD Primary Care Provider Unavaila ble Reason for Visit * Reason Comments Right Knee Pain 1 yr ago strained ba dly. Feels like there is a lot of fluid on knee. Encounter Details Date Type Department Care Team (Late st Contact Info) Description 05/20/2012 8:15 AM EDT Office Visit Orthopaedics at [address] [place] [phone] Eloisa Blackburn MD Prepatellar bursitis (Primary Dx) Social History Tobacco Use Types [...] - Inhaled Oxygen Concentration - - Weight 68 kg (150 lb) 05/20/2012 8:20 AM EDT Height 157.5 cm (5' 2) 05/20/2012 8:20 AM EDT Body Mass Index 27.44 05/20/2012 8:20 AM EDT documented in this encounter Progress Notes * Eloisa Blackburn MD - 05/20/2012 8:36 AM EDT Diagnosis: Prepatellar bursitis and patellar tendonitis, right knee. SUBJECTIVE: The patient is a 47-year-old, white female who is seen in consultation at the request of Dr. Hi. She states that she had an injury to her right knee about a year ago. She was playing on the floor with her daughter, and she was kneeling and squeezed her knee along the floor. She had a little swelling at that time, but is seemed to improve, but it never got back to normal. About 3 months ago, she started having a lot of fluid on the front of the knee. This has been larger than it is today, but it has persisted. Sometimes, she notes pain if there is pressure on the area, such as if she bends her knee, and sometimes she has pain with going up and down stairs. 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 She does not do any regular exercise. She denies previous problems with the right knee and denies any problems with the left knee. OBJECTIVE: On physical exam, the patient is a healthy appearing, medium-build, white female. She has a fair amount of fluid in the prepatellar bursa about 5 or 6 cm in diameter. It is fluctuant and nontender, and there is no erythema or warmth. She has some tenderness over the overlying patellar tendon and infrapatellar fat pad as well. She does not have much pain with patellofemoral motion but does have some mild crepitus. She has mild tenderness over the medial and lateral joint lines. No tenderness over the pes anserine bursa. She has no tenderness on the left. Range of motion is +10 degrees of extension to 150 degrees of flexion bilaterally. She does not have pain with resisted knee extension or straight leg raising. She does not have any laxity to varus or valgus stress, Lex's, or drawer testing bilaterally. X-rays show some very mild medial and patellofemoral degenerative changes on the right. ASSESSMENT: As above. PLAN: I advised the patient that this is a prepatellar bursitis. I suspect that she had an initial friction injury to the bursa with the accumulation of fluid. I advised her that it is often difficult to get the fluid to go away, but it will go away with time. I offered her aspiration, but she declines at this point. I have recommended that she use a neoprene knee sleeve for compression as much as possible and especially when she is exercising. She can also use ice to the area. She does have some indomethacin which she can take as needed, but I would not recommend taking it around the clock because of stomach upset. I advised her to contact me with any questions. Otherwise, I will see her back as needed. documented in this encounter Plan of Treatment Upcoming Encounters Date Type Department Care Team (Late st Contact Info) Description 12/08/2024 9:30 AM EDT TH Visit (TeleHealth) Sleep Center at [facility] [address] [place] [address] Mary Whitmore APRN [facility] [place] [address] documented as of this encounter Visit Diagnoses Diagnosis Prepatellar bursitis- Primary documented in this encounter Care Teams Order Processor Relationship Specialty Start Date End Date Any Hi MD PCP - General 08/07/10 03/13/14 documented as of this encounter
--- OUTSIDE RECORDS SUMMARY | 2024-09-10 01:50 | XMS_ITS | Encounter Summary ---
Author Organization [facility] Address [facility] [place] [address] Care Team Providers Care Director Name Role Phone Jannette Wood MD Primary Care Provider Reason for Visit * Reason Comments Follow-up memory loss Health Maintenance Due for colonoscopy- is moving so unsure she wants to schedule, mammogram- message sent to OB to schedule Encounter Details Date Type Department Care Team (Late st Contact Info) Description 04/02/2021 7:45 AM EDT Office Visit Family Medicine at [address] [place] [phone] Jannette Wood MD [address] [place] [address] [place] [address] Chronic migraine without aura without status migrainosus, not intractable; PE (physical exam), annual Social History Tobacco [...] Sign Reading Time Taken Comments Blood Pressure 112/72 04/02/2021 7:44 AM EDT Pulse 72 04/02/2021 7:44 AM EDT Temperature 36.6 ??C (97.8 ??F) 04/02/2021 7:44 AM ED T Respiratory Rate - - Oxygen Saturation 100% 04/02/2021 7:44 AM EDT Inhaled Oxygen Concentration - - Weight 69.7 kg (153 lb 9.6 oz) 04/02/2021 7:44 A M EDT Height 157.6 cm (5' 2.05) 04/02/2021 7:44 AM ED T Body Mass Index 28.05 04/02/2021 7:44 AM EDT documented in this encounter Progress Notes * Jannette Wood MD - 04/02/2021 7:45 AM EDT Subjective: Patient ID: Violeta Suarez is a 56 y.o. female. Chief Complaint Patient presents with ??? Follow-up memory loss ??? Health Maintenance Due for colonoscopy- is moving so unsure she wants to schedule, mammogram- message sent to OB to schedule Behavorial Health Responses 04/02/2021 Total PHQ-9 4 (Minimal Depression) Total VAL-7 5 (Mild Anxiety) Audit Screener No Drug Screener No Violeta is here for follow-up on her recent visit with me. She was able to see a neurologist to talk more about migraines and memory problems. She was started on new medications but unfortunately she did not tolerate nortriptyline and that she discontinue after few days. She took sumatriptan for migraine which worked well for her. She also completed physical therapy for lower back pain with sciatica. Overall she is feeling better. She is due for mammogram. She will be moving to [place]. Review of Systems Constitutional: Negative for activity change, appetite change and fatigue. Respiratory: Negative for cough, chest tightness, shortness of breath and wheezing. Cardiovascular: Negative for chest pain, palpitations and leg swelling. Gastrointestinal: Negative for abdominal pain. Neurological: Negative for dizziness, weakness, light-headedness, numbness and headaches. Objective: Visit Vitals BP 112/72 (BP Location (NBP): Right arm, Patient Position: Sitting, BP Cuff Sizes: Large Adult (32-43 cm)) Pulse 72 Temp 36.6 ??C (97.8 ??F) (Temporal) Ht 157.6 cm (5' 2.05) Wt 69.7 kg (153 lb 9.6 oz) SpO2 100% BMI 28.05 kg/m?? Physical Exam Vitals reviewed. Constitutional: Appearance: Normal appearance. HENT: Head: Normocephalic and atraumatic. Cardiovascular: Rate and Rhythm: Normal rate and regular rhythm. Pulses: Normal pulses. Heart sounds: Normal heart sounds. Pulmonary: Effort: Pulmonary effort is normal. No respiratory distress. Breath sounds: Normal breath sounds. No stridor. No wheezing or rhonchi. Musculoskeletal: General: No swelling or tenderness. Cervical back: Normal range of motion. Skin: General: Skin is warm. Findings: No rash. Neurological: Mental Status: She is alert. Mental status is at baseline. Psychiatric: Mood and Affect: Mood normal. Assessment and Plan: There are no diagnoses linked to this encounter. Problem List Items Addressed This Visit Chronic migraine without aura without status migrainosus, not intractable -Reviewed neurology consult and current medications. Unfortunately she stopped nortriptyline due toside effects. Doing better with sumatriptan. = Encouraged to schedule follow-up with neurologist Patient declined colonoscopy and follow-up because she may be moving to [place] in the next couple of weeks I asked her to call me if her plan will change documented in this encounter Plan of Treatment Upcoming Encounters Date Type Department Care Team (Late st Contact Info) Description 12/08/2024 9:30 AM EDT TH Visit (TeleHealth) Sleep Center at [facility] [address] [place] [phone] Mary Whitmore APRN [facility] [place] [address] documented as of this encounter Results * Mammo Screening Cad and Mindy Bilateral (05/01/2021 3:21 PM EDT) Anatomical Region [...] who have questions please contact the health long term acute care registered nurse that requested your imaging first. ? Narrative 05/01/2021 4:41 PM EDT EXAMINATION: MAMMO SCREENING CAD AND MINDY BILATERAL HISTORY: Routine screening. There are no [...] other abnormalities are seen. Jannette Wood MD IMG MAMMO ORDERABLES documented in this encounter Visit Diagnoses Diagnosis Chronic migraine without aura without status migrainosus, not intractable Chronic migraine without aura, without mention of intractable migraine without mention of status migrainosus PE (physical exam), annual Routine general medical examination at a health care facility PE (physical exam), annual Routine general medical examination at a health care facility documented in this encounter Care Teams Director Relationship Specialty Start Date End Date Jannette Wood MD [address] [facility] [place] [address] PCP - General Family Medicine 01/22/21 03/21/22 documented as of this encounter
--- OUTSIDE RECORDS SUMMARY | 2024-09-10 01:50 | XMS_ITS | Encounter Summary ---
Author Organization [facility] [place] [address] Care Team Providers Care Sheet Manager Name Role Phone Jannette Wood MD Primary Care Provider [phone] Reason for Visit * Reason Comments Headache * Consultation (Routine) - Closed Specialty Diagnoses / Procedures Referred By Alonso vela Referred To Contact Neurology Diagnoses Memory loss of unknown cause Jannette Wood MD [address] [place] [address] [place] [address] [facility] Neurology [address] [place] [phone] Referral ID Status Reason Start Date Expiration Date V isits Requested Visits Authorized [id number] Closed Specialty Service Requested 01/29/2021 01/29/2022 1 1 Encounter Details Date Type Department Care Team (Late st Contact Info) Description 03/21/2021 10:00 AM EDT Office Visit Neurology at [address] [phone] Sundeep Bernardo, PERFECT BINDER SETTER [address] [place] [address] [place] [address] Chronic migraine without aura without status migrainosus, not intractable; Memory loss Social History Tobacco Use Types Packs/Day Years [...] Sign Reading Time Taken Comments Blood Pressure 120/80 03/21/2021 10:01 AM EDT Pulse 66 03/21/2021 10:01 AM EDT Temperature - - Respiratory Rate - - Oxygen Saturation - - Inhaled Oxygen Concentration - - Weight 70.3 kg (155 lb) 03/21/2021 10:01 AM EDT Height 157.5 cm (5' 2) 03/21/2021 10:01 AM EDT Body Mass Index 28.35 03/21/2021 10:01 AM EDT documented in this encounter Progress Notes * Sundeep Bernardo, PERFECT BINDER SETTER - 03/21/2021 10:00 AM EDT NEUROLOGY Initial Visit [facility] at the [address], [address] [place] [address] Patient Active Problem List Diagnosis Code ??? Depression F32.9 ??? Seasonal allergies J30.2 ??? Chronic headaches R51.9, G89.29 ??? Influenza-like illness J11.1 Chief Complaint Patient presents with ??? Headache History of Present Illness: This is the first visit to the Neurology Department for this 55 y.o. right- handed female seen in consultation at the request of Jannette Wood MD (PCP) for the evaluation and management of headaches. Patient currently works as a geological technician and is living at home with family. She presents to the clinic alone and seems to be a reliable historian. The history was gathered from the patient and review of relevant medical records. Duration: The patient reports a history of headaches since the age of 13 yo. Her headaches were occurring about 4 times per month generally with exercise. She recalls these were severe and she neededto rest in a quiet dark space. OTC medications could lessen the pain initially. Violeta reports that there was a correlation with her periods. As she aged her headaches worsened. During her her headaches worsen. During menopause her headaches worsened. Frequency: 12 headaches per month, lasting throughout the day. Location: Right frontal region. She denies any temporal, occipital, or neck pain. She denies any left sided headaches. She can occasionally have pain behind her eyes. Quality: dull aching at onset and can progress into throbbing sensation Quantity: 3/10 at onset 8-10/10. Associated symptoms: The patient reports +photophobia, -phonophobia, +occasional nausea, + rarely vomiting, -osmophobia, -blurry vision, -double vision -loss of vision. The patient denies vertigo-like symptoms. The patient denies one-sided weakness, numbness, or tingling sensations. She denies slurred speech, difficulty swallowing, or difficulty with gait. She denies any ringing in the ears. Triggers: ETOH, lack of sleep, heat Aggravating/alleviating factors: Resting in quiet dark space can be beneficial. Alternating heat and ice can mildly help. Physical activity will make her headaches worse. These headaches are not related to time or position. Sneezing, coughing, or bending over will not trigger a headache. Psych component: -Sleep: 6 hours [...] following her PCP and a psychiatrist. She also sees a counselor every 2 weeks. Her mood has been stable lately. She denies anySI. -Energy: Active Medications tried: -Tylenol + sudafed (initially helpful) -Excedrin/Ibuprofen (not beneficial) -Fioricet (helpful 1-2 doses will abort the headache. Using about 12 times per month) She denies any asthma, kidney stones, glaucoma, or cardiac issues. She is postmenopausal. She denies any family history of migraines. Imaging: CT head many years ago which was normal to her knowledge. Violeta also has been experiencing memory problems for the last 5 years. She has trouble finding words. She will substitute for another word. She had to change positions at work so she would not need to present as this would worsen her symptoms. She feels that this may be stress induced. She can havetrouble with recall. For example difficulty remembering a phone number or a conversation. She needsto use a calendar to remind herself about appointments. She denies any issues taking medications. She does her own finances without issues. Occasionally will forget she had something in the stove andburn it, but this tends to occur when she is distracted. She denies any trouble with ADLs. Her paternal grandmother had dementia in her early 60s. She had neuropsychological testing completed in [place] about a year ago. I do not have these records available for review. Violeta reports that certain medications like ambien can make her memory worse. Past Medical History: Diagnosis Date ??? Anxiety ??? Back pain ??? Depression ??? Headache ??? Memory disorder Past Surgical History: Procedure Laterality Date ??? SECTION ??? CREATED BY INTERFACE right submandibular abcess I&D Procedure Date: Unknown ??? CREATED BY INTERFACE right submandibular abcess I&D Procedure Date: Unknown ??? TUBAL LIGATION ??? WISDOM TOOTH EXTRACTION Current Outpatient Medications: ??? Draquqxjzv-Nncactakndxkk-Jhjk 50-300-40 mg Capsule, , Disp: , Rfl: ??? levocetirizine (XYZAL) 5 mg Tablet, Take 1 tablet by mouth., Disp: , Rfl: ??? fluticasone propionate (FLONASE) 50 mcg/actuation [place], Suspension, 2 sprays., Disp: , Rfl: ??? lamoTRIgine (LAMICTAL) 150 mg tablet, Take 150 mg by mouth 2 times daily., Disp: , Rfl: No Known Allergies Family History Problem Relation Age of Onset ??? Cancer Mother precancerous pancreas ??? Cancer Paternal Grandmother breast cancer ??? Alzheimer Disease Paternal Grandmother ??? Mental Illness Sister ??? Cancer Maternal Grandmother lung cancer Social History Tobacco Use ??? Smoking status: Former Smoker Packs/day: 1.00 ??? Smokeless tobacco: Never Used Vaping Use ??? Vaping Use: Never used Substance Use Topics ??? Alcohol use: Yes Alcohol/week: 8.0 standard drinks Types: 6 Glasses of wine, 2 Cans of beer per week ??? Drug use: No Review of Systems: A complete review of systems was reviewed and was negative except what was noted in the above HPI and the following: headaches, memory loss, back pain, depression, and anxiety PHYSICAL EXAM Vital signs: Patient Vitals for the past 24 hrs: Pulse BP 03/21/21 1001 66 120/80 General Constitutional: Pleasant, well-developed, well-nourished, and in no acute distress Head and Face: Normocephalic and atraumatic. There is no tenderness to palpation of the occipital notch bilaterally. There is no tenderness to the TMJ or temporal regions bilaterally. Neck: Normal range of motion. Mild tenderness to palpation of the trapezius muscle bilaterally. No bruits detected on carotid or subclavian arteries. No lymphadenopathy. Cardiovascular: Normal rate and regular rhythm without gallops or murmur Pulmonary: Lungs are clear to auscultation bilaterally Extremities: No clubbing, cyanosis, swelling, varicosities, or tenderness. Radial pulses are present bilaterally Neurologic Exam Mental Status Oriented to person, place, and time. Level of Consciousness: Alert Memory: Recent and remote memories are intact and age-appropriate. MOCA: 28/30 missed 2 on delayed recall. Attention: Normal. Concentration: Normal. Speech: Normal Knowledge: Appropriate Comprehension: Normal Cranial Nerves Funduscopic exam: optic discs are sharp bilaterally. No papilledema is noted in the left or right eye. CN II: Visual rogers are full to confrontation CN III, IV, : Pupils are round and equal and reactive to light and accommodation. Extraocular movements are intact. There is no ptosis or nystagmus. CN V: V1 through V3 are intact to light touch and pinprick bilaterally. CN VII: Facial expression full and symmetric CN VIII: Hearing is intact to tuning fork bilaterally. CN IX, X: Normal. Palate is moving equally and symmetrically on both sides. CN XI: Sternocleidomastoid and trapezius muscles are 5/5 bilaterally. CN XII: Tongue is midline without atrophy and fasciculations. Motor Exam Muscle bulk: normal in the bilateral upper and lower extremities Muscle tone: normal in the bilateral upper and lower extremities Pronator drift: absent bilaterally Strength: 5/5 throughout 4 limbs. Sensory Exam Sensation is normal bilaterally to light touch, pinprick, vibration, and temperature. Gait Gait is normal. Patient is able to walk on toes, heels, and is able to walk with a narrow-based gait. Coordination Romberg: negative Finger to nose coordination: normal [id number]-kp-[id number]: normal bilaterally Tandem walking coordination: normal Reflexes Right brachioradialis: 2+ Left brachioradialis: 2+ Right biceps: 2+ Left biceps: 2+ Right triceps: 2+ Left triceps: 2+ Right patellar: 2+ Left patellar: 2+ Right achilles: 2+ Left achilles: 2+ Right plantar: normal, down-going toes Left plantar: normal, down-going toes Clinical Impressions: -Chronic migraine without aura, without status migrainosus, not intractable -Memory loss Recommendations: 1) With 12 headaches per month using a preventive medication may be beneficial. We discussed preventive medications including TCAs, AEDs, and BP medications. We specifically discussed the use of propranolol and nortriptyline. The patient decided to try nortriptyline 10 mg nightly. We discussed the most common side effects of nortriptyline include dry mouth, constipation, fatigue, appetite stimulation, and changes in mood. If the patient experiences any changes in mood she will contact the office immediately. The patient was also made aware that nortriptyline is a category C. She understands the risks and benefits of this medication and is willing to trial. She will update me in a few weeks. 2) For more intense breakthrough headaches using imitrex 50 mg PRN may be effective for abortive therapy. Discussed side effects of triptans including nausea; jaw, neck or chest tightness, pressure or squeezing; rapid heart rate; increased blood pressure; fatigue; numbness-tingling (especially involving the face); or a burning sensation over the skin. Discussed that this medication or any OTC analgesic should not be used more than twice per week as more frequent use can lead to worsening headaches from the rebound effect. The Fioricet could be making the chronic migraine worse. The AMPP studyshowed that use of butalbital once per week transformed patients into chronic migraine, so I will stop her Fioricet. 3) Discussed the use of a headache diary so we can better track the frequency and triggers of headaches. 4) Provided information on migraine headaches, abortive and preventive treatment options, and common triggers for migraines. 5) Encouraged lifestyle changes including hydration, no skipping meals, adequate sleep, daily exercise, and stress management. 6) I will have Violeta sign a release of records from [facility] for her neuropsychiatric report. Her MOCA score was normal at 28. She forgot two items on delayed recall. We discussed how anxiety, depression, chronic migraines, and insomnia can play a role in memory. 7) Offered to follow up in 6-8 weeks, but patient tells me she is moving to [place]. She will follow up PRN. She will call with any questions or concerns in the meantime. Thank you for this interesting consult. Please cc a copy of this note to Jannette Wood MD (PCP) Electronic signature: Sundeep Bernardo APRN 03/21/2021 documented in this encounter Plan of Treatment Upcoming Encounters Date Type Department Care Team (Late st Contact Info) Description 12/08/2024 9:30 AM EDT TH Visit (TeleHealth) Sleep Center at [address] [phone] Mary Whitmore APRN [facility] [place] [address] documented as of this encounter Visit Diagnoses Diagnosis Chronic migraine without aura without status migrainosus, not intractable Chronic migraine without aura, without mention of intractable migraine without mention of status migrainosus Memory loss documented in this encounter Care Teams Sheet Manager Relationship Specialty Start Date End Date Jannette Wood MD [address] [facility] [place] [address] PCP - General Family Medicine 01/22/21 03/21/22 documented as of this encounter
--- OUTSIDE RECORDS SUMMARY | 2024-09-10 01:50 | XMS_ITS | Encounter Summary ---
Author Organization [facility] Address [facility] [place] [address] Care Team Providers Care Wrapper Stemmer Hand Name Role Phone Jannette Wood MD Primary Care Provider [phone] Encounter Details Date Type Department Care Team (Latest Contact Info) Description 01/30/2021 8:05 AM EDT Laboratory Appointment Lab at [address] [place] [address] Memory loss of unknown cause Social History Tobacco Use Types Packs/Day Years [...] EDT TH Visit (TeleHealth) Sleep Center at [facility] [address] [place] [address] Mary Whitmore APRN [facility] [place] [address] documented as of this encounter Procedures Procedure Name Priority Date/Time Associated Diagnosis Comments HC THYROID STIMULATING HORMONE, SERUM Routine 01/30/2021 8:05 AM EDT Memory loss of unknown cause HEMOGRAM Routine 01/30/2021 8:05 AM EDT Memory loss of unknown cause DIFFERENTIAL, AUTOMATED Routine 01/30/2021 8:05 AM EDT Memory loss of unknown cause HC CBC,PLT & AUTO DIFF Routine 8:05 AM EDT Memory loss of unknown cause HC VENIPUNCTURE Routine 01/30/2021 8:05 AM EDT Memory loss of unknown cause COMPREHENSIVE METABOLIC PANEL Routine 01/30/2021 8:05 AM EDT Memory loss of unknown cause documented in this encounter Results * Differential, Automated (01/30/2021 8:05 AM EDT) Neutrophil % 53.9 % [facility] Neutrophil Absolute 2.63 1.70 - 6.10 x10(3)/[facility] Lymph % 34.6 % [facility] Lymphocytes Abs 1.7 0.9 - 3.2 x10(3)/[facility] Monocyte % 7.4 % [facility] Monocyte Abs 0.4 0.3 - 0.9 x10(3)/[facility] Eos % 2.9 % [facility] Eosinophils Abs 0.1 0.0 - 0.4 x10(3)/[facility] Basophil % 1.0 % [facility] Baso Absolute 0.0 0.0 - 0.1 x10(3)/[facility] Immature Gran % 0.20 % [facility] Comment: Immature granulocytes(IG's)percentage and absolute count will include metamyelocytes, myelocytes, and promyelocytes. Blood smears from CBCs yielding IG's will be scanned manually for concordance. If this scan disagrees with the automated IG or if promyelocytes are noted, a manual differential will be performed. Immature Gran Absolute 0.01 0.00 - 0.04 x10(3)/[facility] Blood 01/30/2021 8:05 AM EDT 01/30/2021 2:45 PM EDT Narrative Resulting Agency Comment Spec In Lab Jannette Wood MD HEMATOLOGY ORDERABLE S [facility] [place] [address] * (ABNORMAL) Hemogram (01/30/2021 8:05 AM EDT) White Blood Cell 4.9 4.0 - 9.5 x10(3)/mc L [facility] Red Blood Cell 4.03 4.00 - 5.21 x10(6)/mc L [facility] Hemoglobin 13.3 11.7 - 15.5 gm/dL [facility] Hematocrit 39.2 35.7 - 45.8 % [facility] Mean Cell Volume 97.3(H) 82.6 - 94.4 fL [facility] Mean Cell Hemoglobin 33.0(H) 27.1 - 32.0 pg [facility] Mean Cell Hemoglobin Concentration 33.9 31.7 - 35.0 gm/dL [facility] Platelet 309 145 - 357 x10(3)/mc L [facility] RDW Standard Deviation 41.4 37.0 - 46.0 [facility] RDW coefficient of variation 11.6 11.5 - 14.1 % [facility] Mean Platelet Volume 10.0 7.6 - 12.9 fL [facility] NRBC% auto 0.0 % [facility] NRBC Absolute 0.000 0.000 - 0.000 x10(3)/mc L [facility] Blood 01/30/2021 8:05 AM EDT 01/30/2021 2:45 PM EDT Narrative Resulting Agency Comment Spec In Lab Jannette Wood MD HEMATOLOGY ORDERABLE S [facility] [place] [address] * Comprehensive metabolic panel (non-fasting) (01/30/2021 8:05 AM EDT) Glucose 105 65 - 199 mg/dL [facility] Comment:Diabetes: >=200 mg/d L plus symptoms Blood Urea Nitrogen 14 8 - 18 mg/dL [facility] Creatinine 0.87 0.70 - 1.20 mg/dL [facility] Sodium 141 135 - 145 mmol/L [facility] Potassium 4.2 3.5 - 5.0 mmol/L [facility] Comment: Please note: ??Patients with WBC >100,000 may have falsely elevated Potassium levels. ??For accurate Potassium quantification in these patients send serum separator tube (gold top) for subsequent determinations. ??Contact the Clinical Chemistry Laboratory if there are any questions. Chloride 103 98 - 107 mmol/L [facility] Carbon Dioxide 26 22 - 31 mmol/L [facility] Anion Gap 12 5 - 15 mmol/L [facility] Calcium 9.5 8.5 - 10.5 mg/dL [facility] Protein, Total 7.8 6.1 - 8.0 gm/dL [facility] Albumin 4.9 3.2 - 5.2 gm/dL [facility] Aspartate Aminotransferase 23 0 - 30 unit/L [facility] Alanine Aminotransferase 23 0 - 30 unit/L [facility] Alkaline Phosphatase 67 35 - 105 unit/L [facility] Bilirubin, Total 0.3 0.2 - 1.3 mg/dL [facility] Est Glomerular Filtration Rate 75 >=60 mL/min/1. 73 m?? [facility] Comment: This patient? s estimated glomerular filtration rate (eGFR) is between 75 mL/min/1.73 m2 (patients with less muscle mass) and 87 mL/min/1.73 m2 (patients with more muscle mass) [...] and symptoms in addition to eGFR. Blood 01/30/2021 8:05 AM EDT 01/30/2021 3:24 PM EDT Narrative Resulting Agency Comment Spec In Lab Jannette Wood MD CHEMISTRY ORDERABLES Performing Organization Address City/Va Hospital/ZIP Co de Phone Number [facility] [place] [address] * TSH [place] (01/30/2021 8:05 AM EDT) Thyroid Stimulating Hormone 2.52 0.27 - 4.20 mcIU/mL [facility] Blood 01/30/2021 8:05 AM EDT 01/30/2021 3:10 PM EDT Narrative Resulting Agency Comment Spec In Lab Jannette Wood MD CHEMISTRY ORDERABLES Performing Organization Address City/Va Hospital/ZIP Co de Phone Number [facility] [place] [address] * Magnesium (01/30/2021 8:05 AM EDT) Magnesium 0.97 0.69 - 1.07 mmol/L [facility] Blood 01/30/2021 8:05 AM EDT 01/30/2021 3:24 PM EDT Narrative Resulting Agency Comment Spec In Lab Jannette Wood MD CHEMISTRY ORDERABLES Performing Organization Address City/Va Hospital/ZIP Co de Phone Number [facility] [place] [address] documented in this encounter Visit Diagnoses Diagnosis Memory loss of unknown cause Memory loss documented in this encounter Care Teams Wrapper Stemmer Hand Relationship Specialty Start Date End Date Jannette Wood MD [address] [facility] [place] [address] PCP - General Family Medicine 01/22/21 03/21/22 documented as of this encounter
--- OUTSIDE RECORDS SUMMARY | 2024-09-10 01:50 | XMS_ITS | Encounter Summary ---
Author Organization [facility] [place] [address] Care Team Providers Care Cover Inspector Name Role Phone Jannette Wood MD Primary Care Provider Encounter Details Date Type Department Care Team (Late st Contact Info) Description 02/05/2021 Orders Only Family Medicine at [address] [place] [phone] Jannette Wood MD [address] [place] [address] [place] [address] Social History Tobacco Use Types Packs/Day Years [...] EDT TH Visit (TeleHealth) Sleep Center at [facility] [address] [place] [address] Mary Whitmore APRN [facility] [place] [address] documented as of this encounter Visit Diagnoses Not on filedocumented in this encounter Care Teams Cover Inspector Relationship Specialty Start Date End Date Jannette Wood MD [address] [facility] [place] [place] [address] PCP - General Family Medicine 01/22/21 03/21/22 documented as of this encounter
--- OUTSIDE RECORDS SUMMARY | 2024-09-10 01:50 | XMS_ITS | Encounter Summary ---
Author Organization [facility] [place] [address] Care Team Providers Care Controller Mechanic Name Role Phone Unavailable Primary Care Provider Unavailabl e Encounter Details Date Type Department Care Team (Late st Contact Info) Description 07/17/2010 3:00 PM EDT Procedure visit [address] [phone] Social History Tobacco Use Types Packs/Day Years [...] EDT TH Visit (TeleHealth) Sleep Center at [facility] [address] [place] [address] Mary Whitmore APRN [facility] [place] [address] documented as of this encounter Visit Diagnoses Not on filedocumented in this encounter
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
--- OUTSIDE RECORDS SUMMARY | 2024-09-10 01:50 | XMS_ITS | Encounter Summary ---
Author Organization [facility] [place] [address] Care Team Providers Care Tape Edge Machine Operator Name Role Phone Any Hi MD Primary Care Provider Unavaila ble Reason for Visit * Reason Comments Headache Patient is in for fo llow up of headaches and MRI results. Encounter Details Date Type Department Care Team (Late st Contact Info) Description 05/11/2013 7:45 AM EDT Follow-Up Family Practice at [address] [phone] Any Hi MD Chronic headache (Primary Dx) Social History Tobacco Use Types [...] Sign Reading Time Taken Comments Blood Pressure 110/68 05/11/2013 7:57 AM EDT Pulse 62 05/11/2013 7:57 AM EDT Temperature - - Respiratory Rate - - Oxygen Saturation - - Inhaled Oxygen Concentration - - Weight 67.5 kg (148 lb 12.8 oz) 05/11/2013 7:57 AM EDT Height 156.2 cm (5' 1.5) 05/11/2013 7:57 AM EDT Body Mass Index 27.66 05/11/2013 7:57 AM EDT documented in this encounter Progress Notes * Any Hi MD - 05/11/2013 8:02 AM EDT Subjective: Patient ID: Violeta Suarez is a 48 y.o. female. Headache This is a chronic problem. The current episode started more than 1 year ago. The problem occurs monthly. The problem has been unchanged. The pain is located in the frontal region. The pain does not radiate. The pain quality is similar to prior headaches. The quality of the pain is described as throbbing. The pain is at a severity of 9/10. The pain is severe. Associated symptoms include nausea, rhinorrhea and sinus pressure. Pertinent negatives include no phonophobia, photophobia, visual change or vomiting. The symptoms are aggravated by menstrual cycle. She has tried acetaminophen (sudafed) for the symptoms. The treatment provided significant relief. Her past medical history is significant for sinus disease. There is no history of migraines in the family. Review of Systems HENT: Positive for rhinorrhea and sinus pressure. Eyes: Negative for photophobia. Gastrointestinal: Positive for nausea. Negative for vomiting. Neurological: Positive for headaches. Objective:Blood pressure 110/68, pulse 62, height 156.2 cm (5' 1.5), weight 67.495 kg (148 lb 12.8oz). Physical Exam Nursing note and vitals reviewed. Constitutional: She appears well-developed and well-nourished. No distress. Cardiovascular: Normal rate, regular rhythm and normal heart sounds. Pulmonary/Chest: Effort normal and breath sounds normal. No respiratory distress. She has no wheezes. She has no rales. Neurological: She is alert. No cranial nerve deficit. She exhibits normal muscle tone. Coordinationnormal. Skin: She is not diaphoretic. Assessment and Plan: Violeta was seen today for headache. Diagnoses and associated orders for this visit: Chronic headache Comments: menstrual - vascular type MRA negative verapamil (CALAN-SR) 120 mg CR tablet; Take 1 tablet by mouth nightly. CP online patient information on medicine given Follow up 2 months documented in this encounter Plan of Treatment Upcoming Encounters Date Type Department Care Team (Late st Contact Info) Description 12/08/2024 9:30 AM EDT TH Visit (TeleHealth) Sleep Center at [facility] [address] [place] [address] Mary Whitmore APRN [facility] [place] [address] documented as of this encounter Visit Diagnoses Diagnosis Chronic headache- Primary Headache documented in this encounter Care Teams Tape Edge Machine Operator Relationship Specialty Start Date End Date Any Hi MD PCP - General 08/07/10 03/13/14 documented as of this encounter
--- OUTSIDE RECORDS SUMMARY | 2024-09-10 01:50 | XMS_ITS | Encounter Summary ---
Author Organization [facility] Address [facility] [place] [address] Care Team Providers Care Gas Utility Worker Name Role Phone Any Hi MD Primary Care Provider Unavaila ble Encounter Details Date Type Department Care Team (Latest Contact Info) Description 07/12/2013 8:45 AM EDT Laboratory Appointment Lab [address] [phone] Any Hi MD Healthcare maintenance [...] Visit (TeleHealth) Sleep Center at [facility] [address] [place] [address] Mary Whitmore APRN [facility] [place] [address] documented as of this encounter Procedures Procedure Name Priority Date/Time Associated Diagnosis Comments HEPATITIS C ANTIBODY Routine 07/12/2013 8:48 AM EDT Healthcare maintenance documented in this encounter Results * Hepatitis C Antibody (07/12/2013 8:48 AM EDT) Hepatitis C Antibody Negative Negative [facility] Comment: Please note that as of 04/20/2013, the testing methodology for this assay has changed. However there is no change in the interpretation of the results. Blood specimen (specimen) 07/12/2013 8:48 AM EDT 07/12/2013 6:53 PM EDT Narrative Resulting Agency Comment Spec In Lab Any Hi MD CHEMISTRY ORDERABLES [facility] documented in this encounter Visit Diagnoses Diagnosis Healthcare maintenance Routine general medical examination at a health care facility documented in this encounter Care Teams Gas Utility Worker Relationship Specialty Start Date End Date Any Hi MD PCP - General 08/07/10 03/13/14 documented as of this encounter
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
--- OUTSIDE RECORDS SUMMARY | 2024-09-10 01:50 | XMS_ITS | Encounter Summary ---
Author Organization [facility], [facility] [place] [address] Care Team Providers Care Property And Equipment Clerk Name Role Phone Betty Murry MD Primary Care Provider [phone] Encounter Details Date Type Department Care Team (Late st Contact Info) Description 02/02/2021 Refill Family Medicine at [address] [place] [phone] Maria Elena Lyman LPN Social History Tobacco Use Types Packs/Day Years [...] encounter Miscellaneous Notes * Telephone Encounter - Maria Elena Lyman LPN - 02/02/2021 10:00 AM EDT Medication: Butalbital- Acetaminophen- caff 50-300-40 mg Last office visit (provider and pertaining to Rx refill): 01/29/[address] Murry Future office visits (Date & provider): 04/02/[address] Murry Last refill written (date): 11/13/20 Refills given: 30 with 0 * Telephone Encounter - Maria Elena Lyman LPN - 02/02/2021 9:51 AM EDT Copied from [facility] #[id number]. Topic: Triage - Triage >> February 02, 2021 9:44 AM Danielle Kilpatrick wrote: Symptom: med from 01/30/21 appt PCP: BETYT MURRY Additional Comments: Patient stated at her appointment on 01/30/[address] Murry a script for Grkgklzxwa-Jzcpdbseywmiw-Rdyt 50-300-40 mg Capsule was to be called in to [facility] [address] [place] [address] [phone]. Please call to discuss. Thank you. documented in this encounter Plan of Treatment Upcoming Encounters Date Type Department Care Team ([facility] st Contact Info) Description 12/08/2024 9:30 AM EDT TH Visit (TeleHealth) Sleep Center at [facility] [address] [place] [address] Mary Whitmore APRN [facility] [place] [address] documented as of this encounter Visit Diagnoses Not on filedocumented in this encounter Care Teams Property And Equipment Clerk Relationship Specialty Start Date End Date Betty Murry MD [address] [facility] [place] [address] PCP - General Family Medicine 01/22/21 03/21/22 documented as of this encounter
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
--- OUTSIDE RECORDS SUMMARY | 2024-09-10 01:50 | XMS_ITS | Encounter Summary ---
Author Organization [facility] [place] [address] Care Team Providers Care Dynamometer Mechanic Name Role Phone Unavailable Primary Care Provider Unavailabl e Encounter Details Date Type Department Care Team (Late st Contact Info) Description 04/23/2017 Ancillary Procedure Radiology at [address] [place] [address] [place] [address] [place] [address] DIAGNOSTIC [place] [address] Social History Tobacco Use Types Packs/Day Years [...] EDT TH Visit (TeleHealth) Sleep Center at [address] [place] [address] Mary Whitmore APRN [facility] [place] [address] documented as of this encounter Procedures Procedure Name Priority Date/Time Associated Diagnosis Comments FILM LIBRARY STORAGE ONLY MAMMO Routine 04/23/2017 12:00 AM EDT documented in this encounter Results * Film Library- Storage Only Mammo (04/23/2017 12:00 AM EDT) Narrative MAXIMINO PÉREZ - 04/12/2021 8:29 AM EDT This exam is auto-finalizing. It's purpose is for storage only. Chad Villasenor DO IMG FILM LIBRARY ORD ERABLES BETO [place] documented in this encounter Visit Diagnoses Not on filedocumented in this encounter
--- OUTSIDE RECORDS SUMMARY | 2024-09-10 01:50 | XMS_ITS | Encounter Summary ---
Author Organization [facility] [place] [address] Care Team Providers Care Enterprise Systems Architect Name Role Phone Jannette Wood MD Primary Care Provider [phone] Encounter Details Date Type Department Care Team (Late st Contact Info) Description 05/01/2021 3:30 PM EDT Ancillary Procedure Mammography at [address] [place] [phone] Jannette Wood MD [address] [place] [address] [place] [address] PE (physical exam), annual Social History Tobacco [...] EDT TH Visit (TeleHealth) Sleep Center at [facility] [address] [place] [phone] Mary Whitmore APRN [facility] [place] [address] documented as of this encounter Procedures Procedure Name Priority Date/Time Associated Diagnosis Comments MAMMO SCREENING CAD AND MINDY BILATERAL Routine 05/01/2021 3:21 PM EDT PE (physical exam), annual documented in this encounter Results * Mammo Screening Cad [...] who have questions please contact the health infant childcare provider that requested your imaging first. ? Narrative [...] facility documented in this encounter Care Teams Enterprise Systems Architect Relationship Specialty Start Date End Date Jannette Wood MD [address] [facility] [place] [address] PCP - General Family Medicine 01/22/21 03/21/22 documented as of this encounter
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
--- OUTSIDE RECORDS SUMMARY | 2024-09-10 01:50 | XMS_ITS | Encounter Summary ---
Author Organization [facility] [place] [address] Care Team Providers Care Cloth Cutting Machine Operator Name Role Phone Jannette Wood MD Primary Care Provider Reason for Referral * Consultation (Routine) - Closed Specialty Diagnoses / Procedures Referred By Contac t Referred To Contact Neurology Diagnoses Memory [place] of [place] [address] [place] [address] [place] [address] [facility] Neurology [address] [place] [phone] Referral ID Status Reason Start Date Expiration Date V isits Requested Visits Authorized [id number] Closed Specialty Service Requested 01/29/2021 01/29/2022 1 1 * Physical Therapy (Routine) - Closed Specialty Diagnoses / Procedures Referred By Contac t Referred To Contact Diagnoses Chronic midline low back pain with bilateral sciatica Jannette Wood MD [address] [place] [address] [facility], [address] [address] Referral ID Status Reason Start Date Expiration Date V isits Requested Visits Authorized [id number] Closed Evaluate and Treat PCP Updated and/or Approved 01/29/2021 07/28/2021 12 12 Reason for Visit * Reason Comments Medication Check insomnia, anxiety an d depression. Other memory Encounter Details Date Type Department Care Team (Late st Contact Info) Description 01/29/2021 7:45 AM EDT Office Visit Family Medicine at [place] [address] [facility] [place] [phone] Jannette Wood MD [address] [facility] [place] [address] Memory loss of unknown cause; Chronic midline low back pain with bilateral sciatica; Chronic low back pain with bilateral sciatica, unspecified back pain laterality; Chronic nonintractable headache, unspecified headache type; Insomnia, unspecified type Social History Tobacco Use Types [...] Sign Reading Time Taken Comments Blood Pressure 138/70 01/29/2021 7:59 AM EDT Pulse 81 01/29/2021 7:59 AM EDT Temperature 36.2 ??C (97.2 ??F) 01/29/2021 7:59 AM ED T Respiratory Rate - - Oxygen Saturation 98% 01/29/2021 7:59 AM EDT Inhaled Oxygen Concentration - - Weight 71.6 kg (157 lb 12.8 oz) 01/29/2021 7:59 AM EDT Height 157.5 cm (5' 2) 01/29/2021 7:59 AM EDT Body Mass Index 28.86 01/29/2021 7:59 AM EDT documented in this encounter Patient Instructions * Patient Instructions* Jannette Wood MD - 01/29/2021 7:45 AM EDT Labs Neurology consult Physical therapy documented in this encounter Progress Notes * Jannette Wood MD - 01/29/2021 7:45 AM EDT Subjective: Patient ID: Violeta Suarez is a 55 y.o. female. Chief Complaint Patient presents with ??? Medication Check insomnia, anxiety and depression. ??? Other memory No flowsheet data found. Mrs. Suarez is here to establish care Has few concerns that she wants to discuss with me today 1. Insomnia - ongoing problem - tried Ambien in the past but made her memory problem worse Doesn't take any OTC medications Did not try Melatonin 2. Memory problem - started 5 years ago - had memory evaluation last year - not sure about results Has problems at work due to difficulty finding words and has hard time learning to skills 3. H/O headaches Has been taking Fioricet which is helping But recently has been experiencing more frequent headaches 4. Anxiety and Depression -was seen by psychiatrist but stopped Some time ago Doing well on Lamictal Denies any side effects 5. Lower back pain - Sciatica= also chronic problem Never had physical therapy for this Pain is traveling to both legs on and off- worse with prolonged sitting No numbness or tingling Review of Systems Constitutional: Negative for activity change, appetite change, fatigue and fever. HENT: Negative for sinus pain and sore throat. Respiratory: Negative for cough, chest tightness, shortness of breath and wheezing. Cardiovascular: Negative for chest pain, palpitations and leg swelling. Gastrointestinal: Negative for abdominal pain, constipation, diarrhea and nausea. Genitourinary: Negative for difficulty urinating, dysuria, flank pain and hematuria. Musculoskeletal: Positive for back pain. Negative for joint swelling. Sciatica b/l Skin: Negative for rash. Neurological: Negative for dizziness and headaches. Psychiatric/Behavioral: Positive for dysphoric mood. Sleep disturbance: insomnia. The patient is nervous/anxious. Problems with memory Objective: Visit Vitals BP 138/70 Pulse 81 Temp 36.2 ??C (97.2 ??F) (Temporal) Ht 157.5 cm (5' 2) Wt 71.6 kg (157 lb 12.8 oz) SpO2 98% BMI 28.86 kg/m?? Physical Exam Vitals reviewed. Constitutional: Appearance: [...] No rash. Neurological: Mental Status: She is alert and oriented to person, place, and time. Mental status is at baseline. Psychiatric: Mood and Affect: Mood normal. Assessment and Plan: Problem List Items Addressed This Visit Chronic headaches - Chronic headaches - On migraine medications in the past - stopped due to side effects - Doing well on Fioricet - Discussed stress management , physical activity and hydration - Neurology consult Other Visit Diagnoses Memory loss of unknown cause Relevant Orders Comprehensive metabolic panel (non-fasting) TSH [place] CBC (with Diff) Magnesium Referral to Neurology - ongoing memory problem which per patient is effecting her job and is getting worse - had neuro-pychological evaluation In the past but I do not see her results in chart - recommended Neurology consult - will check labs - discussed the importance of sleep Chronic midline low back pain with bilateral sciatica Relevant Orders Referral to Physical Therapy - recommended physical therapy - discussed symptomatic treatment - asked to call with any new symptoms/ worsening Insomnia - discussed sleep hygiene - recommended to try Melatonin- Ambien made memory problem worse documented in this encounter Plan of Treatment Upcoming Encounters Date Type Department Care Team (Late st Contact Info) Description 12/08/2024 9:30 AM EDT TH Visit (TeleHealth) Sleep Center at [facility] [address] [place] [address] Mary Whitmore APRN [facility] [place] [address] Scheduled Referrals Name Type Priority Associated Diagnoses Orde r Schedule Referral to Physical Therapy Outpatient Referral Routine Chronic midline low back pain with bilateral sciatica Ordered: 01/29/2021 Referral to Neurology Outpatient Referral Routine Memory loss of unknown cause Ordered: 01/29/2021 documented as of this encounter Results * Magnesium (01/30/2021 8:05 AM EDT) Magnesium 0.97 0.69 - 1.07 mmol/L [facility] Blood 01/30/2021 8:05 AM EDT 01/30/2021 3:24 PM EDT Narrative Resulting Agency Comment Spec In Lab Jannette Wood MD CHEMISTRY ORDERABLES Performing Organization Address City/[facility]/ZIP Co de Phone Number [facility] [place] [address] * TSH [place] (01/30/2021 8:05 AM EDT) Thyroid Stimulating Hormone 2.52 0.27 - 4.20 mcIU/mL [facility] Blood 01/30/2021 8:05 AM EDT 01/30/2021 3:10 PM EDT Narrative Resulting Agency Comment Spec In Lab Jannette Wood MD CHEMISTRY ORDERABLES Performing Organization Address City/[facility]/ZIP Co de Phone Number [facility] [place] [address] * Comprehensive metabolic panel (non-fasting) (01/30/2021 8:05 AM EDT) Glucose 105 65 - 199 mg/dL [facility] Comment:Diabetes: >=200 mg/d L plus symptoms Blood Urea Nitrogen 14 8 - 18 mg/dL [facility] Creatinine 0.87 0.70 - 1.20 mg/dL [facility] Sodium 141 135 - 145 mmol/L [facility] Potassium 4.2 3.5 - 5.0 mmol/L [facility] Comment: Please note: ??Patients with WBC >100,000 may have falsely elevated Potassium levels. ??For accurate Potassium quantification in these patients send serum separator tube (gold top) for subsequent determinations. ??Contact the Clinical Chemistry Laboratory if there are any questions. Chloride 103 98 - 107 mmol/L [facility] Carbon Dioxide 26 22 - 31 mmol/L [facility] Anion Gap 12 5 - 15 mmol/L [facility] Calcium 9.5 8.5 - 10.5 mg/dL [facility] Protein, Total 7.8 6.1 - 8.0 gm/dL [facility] Albumin 4.9 3.2 - 5.2 gm/dL [facility] Aspartate Aminotransferase 23 0 - 30 unit/L [facility] Alanine Aminotransferase 23 0 - 30 unit/L [facility] Alkaline Phosphatase 67 35 - 105 unit/L [facility] Bilirubin, Total 0.3 0.2 - 1.3 mg/dL [facility] Est Glomerular Filtration Rate 75 >=60 mL/min/1. 73 m?? [facility] Comment: This patient? s estimated [...] In Lab Jannette Wood MD CHEMISTRY ORDERABLES [facility] [place] [address] documented in this encounter Visit Diagnoses Diagnosis Memory loss of unknown cause Memory loss Chronic low back pain with bilateral sciatica, unspecified back pain laterality Chronic nonintractable headache, unspecified headache type Insomnia, unspecified type documented in this encounter Care Teams Cloth Cutting Machine Operator Relationship Specialty Start Date End Date Jannette Wood MD [address] [facility] [place] [address] PCP - General Family Medicine 01/22/21 03/21/22 documented as of this encounter
--- OUTSIDE RECORDS SUMMARY | 2024-09-10 01:50 | XMS_ITS | Encounter Summary ---
Author Organization [facility] Address [facility] [place] [address] Care Team Providers Care Emotional Support Teacher Name Role Phone Any Hi MD Primary Care Provider Unavaila ble Encounter Details Date Type Department Care Team (Late st Contact Info) Description 04/28/2013 6:00 PM EDT Office Visit MRI at [address] [place] [phone] Exertional headache Social History Tobacco Use Types [...] this encounter Miscellaneous Notes * Miscellaneous - Provider, Scanning - 05/03/2013 2:08 PM EDT * Miscellaneous - Provider, Scanning - 05/03/2013 2:05 PM EDT documented in this encounter Plan of Treatment Upcoming Encounters Date Type Department Care Team (Late st Contact Info) Description 12/08/2024 9:30 AM EDT TH Visit (TeleHealth) Sleep Center at [facility] [address] [place] [address] Mary Whitmore APRN [facility] [place] [address] documented as of this encounter Procedures Procedure Name Priority Date/Time Associated Diagnosis Comments MRI HEAD ANGIOGRAM WO CONTRAST Routine 04/28/2013 6:27 PM EDT Headache documented in this encounter Results * MRI head angiogram WO contrast (04/28/2013 6:27 PM EDT) Anatomical Region Laterality Modality Head Magnetic Resonan ce 04/28/2013 6:27 PM EDT Narrative 04/29/2013 9:28 AM EDT Examination MRA Head Without Contrast Clinical History exertional headache, menstrual headache Comparison None Technique Multiplanar images of the brain were acquired without contrast using 3D [id number] imaging according to MRA brain protocol. ??3D reconstructed images were performed at the technologist workstation for review. Findings There is normal configuration of the anterior and posterior circulation at the level of the [place] without evidence of hemodynamically significant stenosis, aneurysm, or vascular malformation. Impression Normal MRA of the brain. Procedure Note Chris Chiu DO - 04/29/2013 Examination MRA Head Without Contrast Clinical History exertional headache, menstrual headache Comparison None Technique Multiplanar images of the brain were acquired without contrast using 3D [id number] imaging according to MRA brain protocol. 3D reconstructed images were performed at the technologist workstation for review. Findings There is normal configuration of the anterior and posterior circulation atthe level of the [place] without evidence of hemodynamicallysignificant stenosis, aneurysm, or vascular malformation. Impression Normal MRA of the brain. Any Hi MD IMG MRI ORDERABLES documented in this encounter Visit Diagnoses Diagnosis Exertional headache Headache documented in this encounter Care Teams Emotional Support Teacher Relationship Specialty Start Date End Date Any Hi MD PCP - General 08/07/10 03/13/14 documented as of this encounter
--- OUTSIDE RECORDS SUMMARY | 2024-09-10 01:50 | XMS_ITS | Encounter Summary ---
Author Organization [facility] Address [facility] [place] [address] Care Team Providers Care Manager Printing Name Role Phone Any Hi MD Primary Care Provider Unavaila ble Encounter Details Date Type Department Care Team (Late st Contact Info) Description 05/14/2012 Orders Only Orthopaedics at [address] [place] [phone] Eloisa Blackburn MD Pain (Primary Dx) Social History Tobacco Use Types [...] TH Visit (TeleHealth) Sleep Center at [facility] [address] [place] [address] Mary Whitmore APRN [facility] [place] [address] documented as of this encounter Visit Diagnoses Diagnosis Pain- Primary Generalized pain documented in this encounter Care Teams Manager Printing Relationship Specialty Start Date End Date Any Hi MD PCP - General 08/07/10 03/13/14 documented as of this encounter
--- OUTSIDE RECORDS SUMMARY | 2024-09-10 01:50 | XMS_ITS | Encounter Summary ---
Author Organization [facility] [place] [address] Care Team Providers Care Prototype Technician Name Role Phone Any Hi MD Primary Care Provider Unavaila ble Reason for Visit * Reason Comments Annual Exam Gynecologic Exam Encounter Details Date Type Department Care Team (Late st Contact Info) Description 04/09/2012 2:00 PM EDT Office Visit Family Practice at [address] [phone] Any Hi MD Annual physical exam (Primary Dx); Depression; Bursitis, prepatellar, right Social History Tobacco Use Types Packs/Day Years [...] Sign Reading Time Taken Comments Blood Pressure 108/64 04/09/2012 2:05 PM EDT Pulse 64 04/09/2012 2:05 PM EDT Temperature - - Respiratory Rate - - Oxygen Saturation - - Inhaled Oxygen Concentration - - Weight 67.6 kg (149 lb) 04/09/2012 2:05 PM EDT Height 156 cm (5' 1.42) 04/09/2012 2:05 PM EDT Body Mass Index 27.77 04/09/2012 2:05 PM EDT documented in this encounter Patient Instructions * Patient Instructions* Any Hi MD - 04/09/2012 2:46 PM EDT [facility] Kneecap Bursitis: After Your Visit Your Care Instructions Bursitis is inflammation of the bursa. A bursa is a small sac of fluid that cushions a joint and helps it move easily. Bursitis of the kneecap is inflammation of the bursa found between the front of the kneecap and the skin. Kneeling for a long time can cause kneecap bursitis, which can develop into an egg-shaped bump on the front of the kneecap. Bursitis usually gets better if you avoid the activity that caused it. If it lasts or gets worse despite home treatment, your doctor may draw fluid from the bursa through a needle. This may relieve your pain and help your doctor know if you have an infection. If so, your doctor will prescribe antibiotics. If you have inflammation only, you may get a corticosteroid shot to reduce swelling and pain. Your doctor may recommend physical therapy and stretching activities. Rarely, surgery is needed todrain or remove the bursa. Follow-up care is a simon part of your treatment and safety. Be sure to make and go to all appointments, and call your doctor if you are having problems. It???s also a good idea to know your test results and keep a list of the medicines you take. How can you care for yourself at home? ?? Put ice or a cold pack on your kneecap for 10 to 20 minutes at a time. Put a thin cloth between the ice and your skin. ?? After 3 days of using ice, you may use heat on your kneecap. You can use a hot water bottle, a heating pad set on low, or a warm, moist towel. ?? Prop up the sore leg on a pillow when you ice it or anytime you sit or lie down during the next 3 days. Try to keep it above the level of your heart. This will help reduce swelling. ?? Rest your knee. Stop any activities that cause pain. Switch to activities that do not stress your knee. ?? Take your medicines exactly as prescribed. Call your doctor if you think you are having a problem with your medicine. ?? If your doctor recommends it, take anti-inflammatory medicines to reduce pain and swelling. These include ibuprofen (Advil, Motrin) and naproxen (Aleve). Read and follow all instructions on the label. ?? To prevent and ease kneecap bursitis during work, play, and daily activities: ?? Wear kneepads when kneeling on hard surfaces. Avoid kneeling for too long at a time. ?? Strengthen and stretch your leg muscles. ?? Avoid deep knee bends. ?? You can slowly return to the activity that caused the pain, but do it with less effort until youcan do it without pain or swelling. Be sure to warm up before and stretch after you do the activity. When should you call for help? Call your doctor now or seek immediate medical care if: ?? You have a fever. ?? You have increased swelling or redness in your knee area. ?? You cannot use your knee, or the pain in your knee gets worse. Watch closely for changes in your health, and be sure to contact your doctor if: ?? You have pain for 2 weeks or longer despite home treatment. Where can you learn more? Visit our health information library at [email or web address].[facility]org/healthinfo. You can alsoview health information on TapClicks, your personal patient account. Log in or sign up today. Enter H649 in the search box to learn more about Kneecap Bursitis: After Your Visit. ?? [id number] FP Complete. Care instructions adapted under license by [facility]. This care instruction is for use with your licensed healthcare professional. If you have questions about a medical condition or this instruction, always ask your healthcare professional. [employer] disclaims any warranty or liability for your use of this information. Content Version: 9.1.194689; Last Revised: January 28, 2011[facility] Knee (Prepatellar) Bursitis: Exercises Your Care Instructions Here are some examples of typical rehabilitation exercises for your condition. Start each exercise slowly. Ease off the exercise if you start to have pain. Your doctor or physical therapist will tell you when you can start these exercises and which ones will work best for you. How to do the exercises Heel slide 1. Lie on your back with your affected knee straight. Your good knee should be bent. 2. Bend your affected knee by sliding your heel across the floor and toward your buttocks until youfeel a gentle stretch in your knee. 3. Hold for about 6 seconds, and then slowly straighten your knee. 4. Repeat 8 to 12 times. Quad sets 1. Sit with your affected leg straight and supported on the floor or a firm bed. Place a small, rolled-up towel under your affected knee. Your other leg should be bent, with that foot flat on the floor. 2. Tighten the thigh muscles of your affected leg by pressing the back of your knee down into the towel. 3. Hold for about 6 seconds, then rest for up to 10 seconds. 4. Repeat 8 to 12 times. Straight-leg raises to the front 1. Lie on your back with your good knee bent so that your foot rests flat on the floor. Your affected leg should be straight. Make sure that your low back has a normal curve. You should be able to slip your hand in between the floor and the small of your back, with your palm touching the floor and your back touching the back of your hand. 2. Tighten the thigh muscles in your affected leg by pressing the back of your knee flat down to the floor. Hold your knee straight. 3. Keeping the thigh muscles tight and your leg straight, lift your affected leg up so that your heel is about 12 inches off the floor. 4. Hold for about 6 seconds, then lower slowly. Rest for up to 10 seconds between repetitions. 5. Repeat 8 to 12 times. Follow-up care is a simon part of your treatment and safety. Be sure to make and go to all appointments, and call your doctor if you are having problems. It's also a good idea to know your test resultsand keep a list of the medicines you take. Where can you learn more? Visit our health information library at [email or web address].[facility] campus[facility] [employer]org/healthinfo. You can alsoview health information on TapClicks, your personal patient account. Log in or sign up today. Enter H786 in the search box to learn more about Knee (Prepatellar) Bursitis: Exercises. ?? [id number] FP Complete. Care instructions adapted under license by [facility]. This care instruction is for use with your licensed healthcare professional. If you have questions about a medical condition or this instruction, always ask your healthcare professional. [employer] disclaims any warranty or liability for your use of this information. Content Version: 9.1.258366; Last Revised: October 27, 2009 documented in this encounter Progress Notes * Any Hi MD - 04/09/2012 2:31 PM EDT Subjective: Patient ID: Violeta Suarez is a 47 y.o. female. HPI Comments: Violeta Suarez is here for history and physical. Patient's concerns are:Water on rightknee for over 1 year. Depression is getting worse - psychiatrist wants to know if from perimenopause. Patient Active Problem List: Depression (311L) Seasonal allergies (477.9U) Past Surgical History: CREATED BY INTERFACE Comment:right submandibular abcess I&D Procedure Date: Unknown CREATED BY INTERFACE Comment:right submandibular abcess I&D Procedure Date: Unknown TUBAL LIGATION SECTION WISDOM TOOTH EXTRACTION reports that she has never smoked. She has never used smokeless tobacco. She reports that she drinks about 4.8 ounces of alcohol per week. She reports that she does not use illicit drugs. Review of patient's family history indicates: Cancer Mother Comment: precancerous pancreas Cancer Paternal Grandmother Comment: breast cancer Alzheimer's Disease Paternal Grandmother Mental Illness Sister Cancer Maternal Grandmother Comment: lung cancer Patient's care team reviewed and updated. Immunization status: up to date and documented. Last mammogram:06/2011 Last Pap:2009 Last Colonoscopy:na Last cbcd/cholesterol/glucose:2009 Review of Systems Constitutional: Negative. HENT: Negative. Eyes: Negative. Respiratory: Negative. Cardiovascular: Negative. Gastrointestinal: Negative. Genitourinary: Negative. Musculoskeletal: Positive for joint swelling and arthralgias. Skin: Negative. Neurological: Negative. Hematological: Negative. Psychiatric/Behavioral: Negative. Objective: Physical Exam Nursing note and vitals reviewed. Constitutional: She appears well-developed and well-nourished. No distress. HENT: Head: Normocephalic and atraumatic. Right Ear: External ear normal. Left Ear: External ear normal. Nose: Nose normal. Mouth/Throat: Oropharynx is clear and moist. No oropharyngeal exudate. Eyes: Conjunctivae and EOM are normal. Pupils are equal, round, and reactive to light. Right eye exhibits no discharge. Left eye exhibits no discharge. No scleral icterus. Neck: Normal range of motion. Neck supple. No JVD present. No tracheal deviation present. No thyromegaly present. Cardiovascular: Normal rate, regular rhythm and normal heart sounds. Exam reveals no gallop and no friction rub. No murmur heard. Pulmonary/Chest: Effort normal and breath sounds normal. No stridor. No respiratory distress. She has no wheezes. She has no rales. She exhibits no tenderness. Abdominal: Soft. Bowel sounds are normal. She exhibits no distension and no mass. No tenderness. She has no rebound and no guarding. Musculoskeletal: Normal range of motion. She exhibits no edema and no tenderness. Lymphadenopathy: She has no cervical adenopathy. Neurological: She is alert. No cranial nerve deficit. She exhibits normal muscle tone. Coordinationnormal. Skin: Skin is warm and dry. No rash noted. She is not diaphoretic. No erythema. No pallor. Psychiatric: She has a normal mood and affect. Her behavior is normal. Judgment and thought contentnormal. Assessment and Plan: Violeta was seen today for annual exam and gynecologic exam. Diagnoses and associated orders for this visit: Annual physical exam Depression - T3, free; Future - T4, free; Future - TSH; Future Bursitis, prepatellar, right - naproxen sodium (ANAPROX) 550 mg tablet; Take 1 tablet by mouth 2 times daily as needed. With food Follow up in 1 month if knee not better otherwise in 1 year documented in this encounter Plan of Treatment Upcoming Encounters Date Type Department Care Team (Late st Contact Info) Description 12/08/2024 9:30 AM EDT TH Visit (TeleHealth) Sleep Center at [facility] [address] [place] [id number] Mary Whitmore APRN [facility] [place] [address] documented as of this encounter Results * TSH (04/09/2012 3:16 PM EDT) Thyroid Stimulating Hormone 2.41 0.27 - 4.20 mcIU/mL CERNER MILLENNIUM Blood specimen (specimen) 04/09/2012 3:16 PM EDT 04/09/2012 11:20 PM EDT Narrative Resulting Agency Comment Spec In Lab Any Hi MD CHEMISTRY ORDERABLES Performing Organization Address [facility] Co de Phone Number CERNER MILLENNIUM * T4, free (04/09/2012 3:16 PM EDT) Free T4 1.32 0.90 - 1.60 ng/dL CERNER MILLENNIUM Blood specimen (specimen) 04/09/2012 3:16 PM EDT 04/09/2012 11:20 PM EDT Narrative Resulting Agency Comment Spec In Lab Any Hi MD CHEMISTRY ORDERABLES Performing Organization Address [facility] de Phone Number CERNER MILLENNIUM * T3, free (04/09/2012 3:16 PM EDT) Free T3 3.0 2.0 - 3.5 pg/mL CERNER MILLENNIUM Comment: Test Performed by: [place] [address] Axle Bearing Polisher: Roma Morrison, Ph.D. Blood specimen (specimen) 04/09/2012 3:16 PM EDT 04/10/2012 8:43 AM EDT Narrative Resulting Agency Comment Spec In Lab Any Hi MD CHEMISTRY ORDERABLES Performing Organization Address [facility] Co de Phone Number ANU POSADAS documented in this encounter Visit Diagnoses Diagnosis Annual physical exam- Primary Routine general medical examination at a health care facility Depression Depressive disorder, not elsewhere classified Bursitis, prepatellar, right Prepatellar bursitis documented in this encounter Care Teams Prototype Technician Relationship Specialty Start Date End Date Any Hi MD PCP - General 08/07/10 03/13/14 documented as of this encounter
--- OUTSIDE RECORDS SUMMARY | 2024-09-10 01:50 | XMS_ITS | Encounter Summary ---
Author Organization [facility] [place] [address] Care Team Providers Care Cut Out And Marking Machine Operator Name Role Phone Any Hi MD Primary Care Provider Unavaila ble Reason for Visit * Reason Comments Headache Encounter Details Date Type Department Care Team (Late st Contact Info) Description 07/12/2013 8:15 AM EDT Follow-Up Family Practice at [address] [phone] Any Hi MD Healthcare maintenance (Primary Dx); Chronic headaches Social History Tobacco Use Types Packs/Day Years [...] Sign Reading Time Taken Comments Blood Pressure 118/62 07/12/2013 8:13 AM EDT Pulse 68 07/12/2013 8:13 AM EDT Temperature - - Respiratory Rate - - Oxygen Saturation - - Inhaled Oxygen Concentration - - Weight 69.1 kg (152 lb 4.8 oz) 07/12/2013 8:13 A M EDT Height 156.8 cm (5' 1.75) 07/12/2013 8:13 AM ED T Body Mass Index 28.08 07/12/2013 8:13 AM EDT documented in this encounter Progress Notes * Any Hi MD - 07/12/2013 8:22 AM EDT Patient is here for chronic recurrent migraines that verapamil made headaches worse. She stopped verapamil. Triggers: dry air,menses.cold. She has been using tylenol and sudafed that helps. She has been using them twice weekly. She would is unsure whether she wants to use preventative at this time. Patient Active Problem List Diagnosis Code ??? Depression 311 ??? Seasonal allergies 477.9 ??? Chronic headaches 784.0 No Known Allergies ROS: + headache,sinus congestion/cold in past month Depression treated by Dr Rivera O: Blood pressure 118/62, pulse 68, height 156.8 cm (5' 1.75), weight 69.083 kg (152 lb 4.8 oz). Chest:clear to auscultation CV: regular rhythm and rate without murmur Neuro: CN 2-12 grossly intact Patient moves all extremities Assessment and plan: Violeta was seen today for headache. Diagnoses and associated orders for this visit: Chronic headaches Comments: Verapamil worsened headache. OTC treatment controlling headaches to patient's satisfaction at this time follow up 1 year Healthcare maintenance up to date except for Hep C. Comments: Hep C ordered documented in this encounter Plan of Treatment Upcoming Encounters Date Type Department Care Team (Late st Contact Info) Description 12/08/2024 9:30 AM EDT TH Visit (TeleHealth) Sleep Center at [address] [phone] Mary Whitmore APRN [facility] [place] [address] documented as of this encounter Results * Hepatitis C Antibody (07/12/2013 8:48 AM EDT) [facility] Hepatitis C Antibody Negative Negative [facility] Comment: Please note that as of 04/20/2013, the testing methodology for this assay has changed. However there is no change in the interpretation of the results. Blood specimen (specimen) 07/12/2013 8:48 AM EDT 07/12/2013 6:53 PM EDT Narrative Resulting Agency Comment Spec In Lab Any Hi MD CHEMISTRY ORDERABLES [facility] documented in this encounter Visit Diagnoses Diagnosis Healthcare maintenance- Primary Routine general medical examination at a health care facility Chronic headaches Headache documented in this encounter Care Teams Cut Out And Marking Machine Operator Relationship Specialty Start Date End Date Any Hi MD PCP - General 08/07/10 03/13/14 documented as of this encounter
--- OUTSIDE RECORDS SUMMARY | 2024-09-10 01:50 | XMS_ITS | Encounter Summary ---
[place] [address] Care Team Providers Care Hydraulic Barker Operator Name Role Phone Any Woods MD Primary Care Provider Unavaila ble Encounter Details Date Type Department Care Team (Late st Contact Info) Description 07/17/2010 [place] [phone] Any Woods MD Social History Tobacco Use Types Packs/Day [...] EDT TH Visit (TeleHealth) Sleep Center at [address] [phone] Mary Whitmore APRN [facility] [place] [address] documented as of this encounter Procedures Procedure Name Priority Date/Time Associated Diagnosis Comments DISASTER RECOVERY MANAGER MOLECULAR GENETICS REPORT Routine 07/17/2010 9:34 AM EDT DISASTER RECOVERY MANAGER CYTOLOGY FINAL REPORT Routine 07/17/2010 9:34 AM EDT documented in this encounter Results * DISASTER RECOVERY MANAGER MOLECULAR GENETICS REPORT (07/17/2010 9:34 AM EDT) DISASTER RECOVERY MANAGER Molecular Genetics Report ? [facility] ? Provider: ?? ANY WOODS ?Pt. Name: ?? VIOLETA BAINS ? Acc #: ?[id number] ?Pt. ? Col Date: ?? 07/17/2010 ? [...] Management Conference Guidelines, in Arnel D, Chata MH, ? Tarone R. ??Comparison of three management [...] Liquid Based Prep ? Reviewed by: ??Eliane Cruz MT(ASCP), CLS III ? A ?TAMIKA Cerv-Endocerv LBP ? B ?HPVDO Do HPV Testing ? C ?[facility] So. Med Rec #: ??[id number] ? _ ? Verified date: ??07/30/10 ? Verified by: ?Lab Review, Molecular Genetics ? (Electronic Signature) ANU POSADAS 07/17/2010 9:34 AM EDT Any Woods MD PATHOLOGY/CYTOLOGY O RDERABLES ANU POSADAS * PATHOLOGY DISASTER RECOVERY MANAGER CYTOLOGY FINAL REPORT (07/17/2010 9:34 AM EDT) Energy Sales Consultant Cytology Final Report ? [facility] ? Provider: ?? ANY WOODS ?Pt. Name: ?? MAGGIEELDERVIOLETA ? Acc #: ?[id number] ?Pt. ? Col Date: ?? 07/17/2010 ? /Sex: ?1965,(45 years),Female ? Rec Date: ?? 07/18/2010 ? LOC: ?[facility] ? CYTOPATHOLOGY: ??DISASTER RECOVERY MANAGER ? ---Adequacy--- ? Specimen submitted is satisfactory. ? Endocervical component present. ? ---Cytopathologic Diagnosis--- ?NORMAL ? Negative for Intraepithelial Lesion or Malignancy (NILM). ? 07/20/10 ?? Screened by: ??SQA ? 07/20/10 ?? Verified by: ??Marty OCHOA(ASCP), Marc Kruger - Utilization Manager ? ---Clinical Information--- ? Specimen Source: ?Cervical Endocervical LBP ? LMP: ?07/10/10 ? / ?: ?? No ? Hysterectomy?: ?No ? Clinical Data, Significant Therapy and Clinical Impression: ? [facility] So. Med Rec #: ? [id number] ? HPV Option: ?Perform concurrent Pap and [...] ??For further ? information please contact the [facility] Laboratory. ? Reference: ??Tina CS. ??Rubber Block Layer of Pap Smear Results. ??In: ? Boo BS, Krzysztof HH, ed. ??The Pap Smear. ??[place]: ??[place]atinder, 2002: ? 71-77. ANU POSADAS 07/17/2010 9:34 AM EDT Any Woods MD PATHOLOGY/CYTOLOGY O RDERABLES ANU POSADAS documented in this encounter Visit Diagnoses Not on filedocumented in this encounter Care Teams Hydraulic Barker Operator Relationship Specialty Start Date End Date Any Woods MD PCP - General 08/07/10 03/13/14 documented as of this encounter
[2024-09-10 07:35] LABS: Hemoglobin A1C 5.5 % (<5.7)
[2024-09-10 07:46] LABS: Calculated LDL 139 mg/dL (<100); Cholesterol 229 mg/dL (<200); HDL Cholesterol 71 mg/dL (40-60); Triglyceride 95 mg/dL (<150)
== END 2024-09-10 01:48 | disposition home or self-care (01) ==
PROVIDERS: PCP Family Medicine; Visit Provider Psychiatry & Neurology Psychiatry
DX: F31.81 Bipolar II disorder (principal); Z79.899 Other long term (current) drug therapy
CPT/HCPCS: 36415; 80061; 83036

== ENCOUNTER 2025-02-15 02:09 | Outpatient (CLI) | payer OTHER, SELFPAY ==
[2025-02-15 08:36] LABS: ALT 36 U/L (14-59); AST 23 U/L (15-37); Albumin 4.3 g/dL (3.4-5.0); Alkaline Phosphatase 79 U/L (46-116); Bilirubin, Direct 0.2 mg/dL (0.0-0.2); Bilirubin, Total 0.6 mg/dL (0.2-1.0); TSH 3.01 uIU/mL (0.36-3.74); Total Protein 7.9 g/dL (6.4-8.2)
[2025-02-15 08:41] LABS: Hemoglobin A1C 5.4 % (<5.7)
[2025-02-15 08:49] LABS: Calculated LDL 147 mg/dL (<100); Cholesterol 244 mg/dL (<200); HDL Cholesterol 70 mg/dL (>or=50); Triglyceride 136 mg/dL (<150)
== END 2025-02-15 02:10 | disposition home or self-care (01) ==
PROVIDERS: PCP Nurse Practitioner Family; Visit Provider Psychiatry & Neurology Psychiatry
DX: Z79.899 Other long term (current) drug therapy (principal); F31.81 Bipolar II disorder
CPT/HCPCS: 36415; 80061; 80076; 83036; 84443

== ENCOUNTER 2025-07-06 01:34 | Outpatient (CLI) | payer OTHER, SELFPAY ==
[2025-07-06 08:00] LABS: Hemoglobin A1C 5.2 % (<5.7)
[2025-07-06 08:04] LABS: ALT 30 U/L (14-59); AST 23 U/L (15-37); Albumin 4.0 g/dL (3.4-5.0); Alkaline Phosphatase 66 U/L (46-116); Anion Gap 10.9 mmol/L (3-11); BUN 14 mg/dL (7-18); Bilirubin, Total 0.5 mg/dL (0.2-1.0); CO2 25.1 mmol/L (21.0-32.0); Calcium 8.6 mg/dL (8.5-10.1); Calculated LDL 138 mg/dL (<100); Chloride 103 mmol/L (98-107); Cholesterol 218 mg/dL (<200); Estimated GFR 84.30 (mL/min/1.73m2); Glucose 103 mg/dL (74-106); HDL Cholesterol 57 mg/dL (>or=50); Potassium 4.2 mmol/L (3.5-5.1); Sodium 139 mmol/L (136-145); TSH 2.58 uIU/mL (0.36-3.74); Total Protein 7.5 g/dL (6.4-8.2); Triglyceride 115 mg/dL (<150)
== END 2025-07-06 01:35 | disposition home or self-care (01) ==
LOC: LBO 01:34
PROVIDERS: Psychiatry & Neurology Psychiatry; PCP Nurse Practitioner Family; Visit Provider Nurse Practitioner Family
DX: E66.9 Obesity, unspecified (principal)
CPT/HCPCS: 36415; 80053; 80061; 83036; 84443